=== PATIENT | female | born 1990 | race Caucasian/White ===

== ENCOUNTER 2020-10-06 15:05 | Emergency (ER) | payer OTHER, SELFPAY ==
--- NOTE | ~2020-10-06 | XR_ITS ---
EXAMINATION: XR CHEST CLINICAL INFORMATION: Cough COMPARISON: None TECHNIQUE: Frontal view of the chest was obtained. FINDINGS: The lungs are clear. There is no airspace consolidation or groundglass opacity. No hyperinflation. The costophrenic sulci are well-defined. The heart is normal in size. The hilar and mediastinal contours and visualized bony structures are unremarkable. XR/XR chest 1V IMPRESSION: Unremarkable examination.
[2020-10-06 15:12] VITALS: BP 141/85; PULSE 97; RESP 16; TEMP 36.1; O2SAT 98; BMI 39.6
[2020-10-06 15:49] LABS: COVID-19 Test Negative (Negative); IDNOW Serial# 9DD0AD1C
--- NOTE | 2020-10-06 16:13 | ED.URI ---
HPI - URI/Sore Throat General Chief Complaint: Upper Respiratory Symptoms Stated Complaint: flu like Time Seen by Provider: 10/06/20 16:04 History of Present Illness HPI Narrative: Patient complains of runny nose and worsening cough over past 3 days, no fever no chills no difficulty breathing Related Data Allergies Allergy/AdvReac Type Severity Reaction Status Date / Time No Known Allergies Allergy Unverified 10/23/19 16:21 Review of Systems Review of Systems: Positive for runny nose and cough Negatives no fever no chills no dizziness no weakness no headache no vision changes no sore throat no chest pain no shortness of breath no abdominal pain no nausea or vomiting no leg swelling no calf pain no rashes Yes all other systems are reviewed and are negative [facility] Past Medical History Source: nursing notes reviewed Social History Social History Advance Directives: No Advance Directives Information Provided: Yes Physical Exam Vital Signs: Vital Signs: Last Vital Signs Temp 97 F 10/06/20 15:12 Pulse 97 10/06/20 15:12 Resp 16 10/06/20 15:12 BP 141/85 H 10/06/20 15:12 Pulse Ox 98 10/06/20 15:12 Body Mass Index 39.6 General appearance no acute distress comfortable The ears are clear with normal tympanic membranes The sinuses are nontender The pharynx is clear, well hydrated, no redness swelling or exudate, voice is normal The neck is supple Chest is clear to auscultation bilateral Heart no murmur Abdomen soft nontender Extremities full range of motion x4 Skin no rash Course Course Course Narrative: COVID test was negative, chest x-ray was negative Comfortable patient with no sign of any dangerous illness, breathing easily is discharged home with diagnosis viral illness MDM - URI/Sore Throat Lab Data Labs: Lab Results 10/06/20 Range/Units 15:17 COVID-19 (JEFFERY) Negative (Negative) COVID-19 Clin Com See Note Discharge Plan Discharge Clinical Impression: Upper respiratory infection Patient Disposition: Home, Self-Care Additional Instructions: COVID testing was negative and chest x-ray was normal This is most likely a viral illness or cold Return any time any worse condition or any concerns Follow with primary doctor if needed You can use [id number] decongestants if needed as well as [id number] Tylenol or Motrin for any body aches Stand Alone Forms: Work/School Release Interventions: ED Discharge Assessment Last Done: 10/06/20 16:51 Discharge Date/Time: 10/06/20 16:53
== END 2020-10-06 16:53 | disposition home or self-care (01) ==
PROVIDERS: Emergency Provider Internal Medicine; PCP Internal Medicine
DX: J06.9 Acute upper respiratory infection, unspecified (principal); Z20.822 Contact with and (suspected) exposure to COVID-19
CPT/HCPCS: 36415; 71045; 87635; 99283

== ENCOUNTER 2021-02-16 12:43 | Emergency (ER) | payer OTHER, SELFPAY ==
[2021-02-16 13:11] VITALS: BP 128/95; PULSE 117; RESP 19; TEMP 37.1; O2SAT 99; BMI 37.2
[2021-02-16 14:17] LABS: COVID-19 Test Negative (Negative)
== END 2021-02-16 17:13 | disposition left against medical advice (07) ==
PROVIDERS: Emergency Provider Emergency Medicine; PCP Internal Medicine
DX: R51.9 Headache, unspecified (principal); Z20.822 Contact with and (suspected) exposure to COVID-19
CPT/HCPCS: 87635; 99282; 99283

== ENCOUNTER 2021-03-22 09:33 | Emergency (ER) | payer OTHER, SELFPAY ==
--- NOTE | ~2021-03-22 | CT_ITS ---
EXAMINATION: CT ABDOMEN AND PELVIS WITH CONTRAST CLINICAL INFORMATION: Lower abdominal pain. Diarrhea. COMPARISON: None TECHNIQUE: Multidetector volumetric images were obtained from the superior aspect of the liver through the pubic symphysis following administration 85 mL of Omnipaque 350 intravenous contrast. Sagittal and coronal reformatted images were obtained on the technologist's workstation. Oral contrast: Yes This CT examination was performed using dose optimization techniques as appropriate, variously including the following: *Automated exposure control *Adjustment of mA and/or kV according to patient size (this includes techniques or standardized protocols for targeted exams where dose is matched to indication/reason for exam; i.e. extremities or head) *Use of iterative reconstruction technique DLP: 646 mGy-cm FINDINGS: LUNG BASES: The visualized lung bases are unremarkable. LIVER, GALLBLADDER, AND BILIARY TREE: The liver is normal in size, shape, and attenuation. There is a small 4 mm low-attenuation lesion in the left lobe of the liver axial image 17 series 3. This is difficult to characterize due to small size but may represent a cyst. No other focal hepatic lesion or biliary ductal dilatation is present. The gallbladder is unremarkable with no evidence of radiopaque gallstones, gallbladder wall thickening, or obvious pericholecystic inflammatory changes. PANCREAS: Unremarkable. SPLEEN: Unremarkable. ADRENAL GLANDS: Unremarkable. KIDNEYS AND URETERS: The kidneys are normal in size, shape, and attenuation. No hydronephrosis, hydroureter, or calculi seen. No perinephric stranding. BLADDER: Unremarkable. GASTROINTESTINAL TRACT: The small and large bowel are unremarkable. The appendix is unremarkable. ABDOMINAL WALL: No significant hernia is appreciated. LYMPH NODES: Normal. VASCULAR: Unremarkable. PELVIC VISCERA: Unremarkable. OSSEOUS STRUCTURES: Unremarkable. CT/CT abdomen pelvis w con IMPRESSION: Probable small liver cyst. Otherwise unremarkable exam. Fleischner guidelines were followed.
[2021-03-22 09:51] VITALS: BP 123/83; PULSE 98; RESP 18; TEMP 37.3; O2SAT 100; BMI 35.9
--- NOTE | 2021-03-22 11:29 | ED.ABDPAIN ---
HPI - Abdominal Pain General Chief Complaint: Abdominal Pain Stated Complaint: Abd pain Time Seen by Provider: 03/22/21 11:17 Source: patient Mode of arrival: ambulatory Limitations: no limitations History of Present Illness HPI narrative: describes bubbling in stomach and terrible tasting burps elicited complaint: abdominal pain Onset (ago): day(s) (since Sunday) Location: diffuse Severity: moderate Quality: cramping Radiation: none Migration to: no migration Exacerbating factors: other (unsure) Relieving factors: nothing Context: other (cannot think of event - not triggered by anything, no sick contacts, no antibiotic use, no fam hx of IBD, no diet changes) Associated symptoms: nausea and diarrhea (5 loose stools today) Treatments prior to arrival: other (mylanta, prilosec sent by urgent care center) Related Data Previous Rx's Medication Instructions Recorded dicyclomine 20 mg tablet 20 mg PO BID PRN #30 tab 03/22/21 ondansetron 4 mg disintegrating 4 mg PO Q8H PRN #20 tab 03/22/21 tablet Allergies Allergy/AdvReac Type Severity Reaction Status Date / Time No Known Allergies Allergy Verified 03/22/21 09:51 Review of Systems Review of Systems Constitutional : No Weight loss, No Fever, No Chills ENT/Mouth : No sore throat, No Rhinorrhea Eyes: No Swelling, No Redness Cardiovascular : No Chest Pain, No SOB, NoEdema Respiratory : No Cough, No Sputum, No Wheezing Gastrointestinal : Positive Nausea, no Vomiting, positive Diarrhea, positive abdominal Pain, No Hematochezia, No Melena Genitourinary : No Dysuria, No Urinary Frequency, No Hematuria, No Urgency Musculoskeletal : No joint pain, No Myalgias, No Joint Swelling Skin : No Skin Lesions, No rash Neuro : No Weakness, No Numbness, No Dizziness, No Headache Psych : No Anxiety/Panic, No Depression Heme/Lymph: No Bruising, No Lymphadenopathy Endocrine : No Polyuria, No Polydipsia All other systems reviewed and are negative. [facility] Past Medical History Attestation statement: The following information was validated with the patient. Medical History No known health problems Social History Social History (Updated 03/22/21 @ 11:42 by Estrella Rougemont, DO) Alcohol intake: never Patient Tobacco Use Status: Never used Tobacco Use of substances other than those prescribed or required for medical reasons: No Advance Directives: No Advance Directives Information Provided: No Physical Exam ED Vital Signs: Vital Signs - 24 hr 03/22/21 09:51 03/22/21 12:15 03/22/21 14:07 Temperature 99.2 F 98.5 F Pulse Rate 98 97 88 Respiratory Rate 18 14 14 Blood Pressure 123/83 120/86 115/86 Pulse Oximetry 100 100 100 BMI result Body Mass Index 35.9 Appearance: Alert. Oriented X3. No acute distress. Eyes: Pupils equal, round and reactive to light. ENT: Pharynx normal. Neck: Normal inspection. Neck supple. CVS: Normal heart rate and rhythm. Pulses normal. Respiratory: No respiratory distress. Breath sounds normal. Abdomen: Soft and very mild ttp in lower and upper abdomen no rebound or guarding neg floyd's sign Skin: Skin warm and dry. Normal skin color. Normal skin turgor. Extremities: No lower extremity edema. No calf ttp Neuro: Oriented X 3. No motor deficit. No sensory deficit. Course Course Course Narrative: no acute findings stable for DC crp negative MDM - Abdominal Pain MDM Narrative Medical decision making narrative: 31 yo female no sig PMH no hx of surgeries at this time c/o stomach bubbling, cramping, terrible tasting belching - she notes no changes diet, no food exposures, sick contacts, abx use - at this time no known fam hx of IBD. Will obtain basic labs, CT scan for colitis. IVF. Dispo per results and findings. Lab Data Result diagrams: 03/22/21 12:11 03/22/21 12:10 Labs: Lab Results 03/22/21 03/22/21 03/22/21 Range/Units 11:42 11:42 12:10 WBC (4.8-10.8) X10*3/uL RBC (4.20-5.50) X10*6/uL Hgb (12.0-16.0) g/dl Hct (37.0-47.0) % MCV (80.0-98.0) fL MCH (27.0-33.0) pg MCHC (31.0-35.0) g/dl RDW (11.0-16.0) % Plt Count (160-400) X10*3/uL MPV (9.4-12.3) fL Immature Gran % (Auto) (0.0-0.4) % Neut % (Auto) (45-73) % Lymph % (Auto) (20-40) % Mcculloch % (Auto) (2-11) % Eos % (Auto) (0-4) % Baso % (Auto) (0-2) % Lymph # (Auto) (1.2-4.9) X10*3/uL Mcculloch # (Auto) (0.1-1.2) X10*3/uL Eos # (Auto) (0.0-0.4) X10*3/uL Baso # (Auto) (0.0-0.2) X10*3/uL Abs Immat Gran (auto) (0.00-0.03) X10*3/uL Absolute Neuts (auto) (2.0-8.3) x10*3/uL Absolute Nucleated RBC (0.0-0.012) X10*3/uL Nucleated RBC % (auto) (0.0-0.2) /100WBC Sodium 141 (135-145) mmol/L Potassium 4.2 (3.3-5.1) mmol/L Chloride 111 H (96-108) mmol/L Carbon Dioxide 26 (22-29) mmol/L Anion Gap 8 L (12-20) BUN 6 L (9-16) mg/dL Creatinine 0.72 (0.5-1.4) mg/dL Estim Creat Clear Calc 111.8 Estimated GFR > 60 Random Glucose 108 (60-115) mg/dL Calcium 9.2 (8.4-10.2) mg/dL Magnesium 2.1 (1.6-2.6) mg/dL Total Bilirubin 0.4 (0.0-1.0) mg/dL Direct Bilirubin 0.2 (0.0-0.5) mg/dL AST 13 (5-31) U/L ALT 16 (0-31) U/L Alkaline Phosphatase 57 (39-117) U/L C-Reactive Protein 0.21 (< or = 0.50) mg/dL Total Protein 7.0 (6.5-8.0) g/dL Albumin 3.9 (3.5-5.0) g/dL Lipase 50 (8-78) U/L Urine Color YELLOW Urine Appearance CLEAR Urine pH 5.5 (5.0-8.0) Ur Specific Leivasy >= 1.030 H (1.005-1.025) Urine Protein NEG (NEG-TRACE) MG/DL Urine Glucose (UA) NEG (NEG) MG/DL Urine Ketones NEG (NEG) MG/DL Urine Blood NEG (NEG) Urine Nitrite NEG (NEG) Ur Leukocyte Esterase NEG (NEG) Urine Test NEGATIVE (NEGATIVE) COVID-19 (JEFFERY) (Negative) COVID-19 Clin Com 03/22/21 03/22/21 Range/Units 12:11 12:11 WBC 8.2 (4.8-10.8) X10*3/uL RBC 4.17 L (4.20-5.50) X10*6/uL Hgb 12.4 (12.0-16.0) g/dl Hct 37.6 (37.0-47.0) % MCV 90.2 (80.0-98.0) fL MCH 29.7 (27.0-33.0) pg MCHC 33.0 (31.0-35.0) g/dl RDW 12.9 (11.0-16.0) % Plt Count 288 (160-400) X10*3/uL MPV 10.1 (9.4-12.3) fL Immature Gran % (Auto) 0.1 (0.0-0.4) % Neut % (Auto) 51.6 (45-73) % Lymph % (Auto) 37.1 (20-40) % Mcculloch % (Auto) 5.6 (2-11) % Eos % (Auto) 5.5 H (0-4) % Baso % (Auto) 0.1 (0-2) % Lymph # (Auto) 3.0 (1.2-4.9) X10*3/uL Mcculloch # (Auto) 0.5 (0.1-1.2) X10*3/uL Eos # (Auto) 0.5 H (0.0-0.4) X10*3/uL Baso # (Auto) 0.0 (0.0-0.2) X10*3/uL Abs Immat Gran (auto) 0.01 (0.00-0.03) X10*3/uL Absolute Neuts (auto) 4.2 (2.0-8.3) x10*3/uL Absolute Nucleated RBC 0.000 (0.0-0.012) X10*3/uL Nucleated RBC % (auto) 0.0 (0.0-0.2) /100WBC Sodium (135-145) mmol/L Potassium (3.3-5.1) mmol/L Chloride (96-108) mmol/L Carbon Dioxide (22-29) mmol/L Anion Gap (12-20) BUN (9-16) mg/dL Creatinine (0.5-1.4) mg/dL Estim Creat Clear Calc Estimated GFR Random Glucose (60-115) mg/dL Calcium (8.4-10.2) mg/dL Magnesium (1.6-2.6) mg/dL Total Bilirubin (0.0-1.0) mg/dL Direct Bilirubin (0.0-0.5) mg/dL AST (5-31) U/L ALT (0-31) U/L Alkaline Phosphatase (39-117) U/L C-Reactive Protein (< or = 0.50) mg/dL Total Protein (6.5-8.0) g/dL Albumin (3.5-5.0) g/dL Lipase (8-78) U/L Urine Color Urine Appearance Urine pH (5.0-8.0) Ur Specific Leivasy (1.005-1.025) Urine Protein (NEG-TRACE) MG/DL Urine Glucose (UA) (NEG) MG/DL Urine Ketones (NEG) MG/DL Urine Blood (NEG) Urine Nitrite (NEG) Ur Leukocyte Esterase (NEG) Urine Test (NEGATIVE) COVID-19 (JEFFERY) Negative (Negative) COVID-19 Clin Com See Note Discharge Plan Discharge Clinical Impression: Abdominal pain Qualifiers: Abdominal location: unspecified location Qualified Code(s): R10.9 - Unspecified abdominal pain Diarrhea Qualifiers: Diarrhea type: unspecified type Qualified Code(s): R19.7 - Diarrhea, unspecified Patient Disposition: Home, Self-Care Instructions: Acute Diarrhea (ED), Abdominal Pain (ED) Additional Instructions: return to ED for any worsening symptoms or concerns CT scan of simple liver cyst can just follow with PCP not the cause of your symptoms today LUNG BASES: The visualized lung bases are unremarkable.? LIVER, GALLBLADDER, AND BILIARY TREE: The liver is normal in size, shape, and attenuation. There is a small 4 mm low-attenuation lesion in the left lobe of the liver axial image 17 series 3. This is difficult to characterize due to small size but may represent a cyst. No other focal hepatic lesion or biliary ductal dilatation is present. The gallbladder is unremarkable with no evidence of radiopaque gallstones, gallbladder wall thickening, or obvious pericholecystic inflammatory changes.? PANCREAS: Unremarkable.? SPLEEN: Unremarkable.? ADRENAL GLANDS: Unremarkable.? KIDNEYS AND URETERS: The kidneys are normal in size, shape, and attenuation. No hydronephrosis, hydroureter, or calculi seen. No perinephric stranding. ? BLADDER: Unremarkable.? GASTROINTESTINAL TRACT: The small and large bowel are unremarkable. The appendix is unremarkable.? ABDOMINAL WALL: No significant hernia is appreciated.? LYMPH NODES: Normal. VASCULAR: Unremarkable. PELVIC VISCERA: Unremarkable.? OSSEOUS STRUCTURES: Unremarkable.? CT/CT abdomen pelvis w con IMPRESSION: Probable small liver cyst. Otherwise unremarkable exam. ? Fleischner guidelines were followed. Prescriptions: New ondansetron 4 mg tablet,disintegrating 4 mg PO Q8H PRN (Reason: nausea and vomiting) Qty: 20 0RF dicyclomine 20 mg tablet 20 mg PO BID PRN (Reason: abdominal discomfort) Qty: 30 0RF Referrals: Latrice Cuevas MD [Physician] - 1 week (if this persists)
[2021-03-22 11:50] LABS: Appearance Urine CLEAR; Color Urine YELLOW; Glucose Urine UA NEG (NEG); Leukocyte Esterase Urine NEG (NEG); Nitrite Urine NEG (NEG); PH 5.5 (5.0-8.0); Specific Gravity - Urine >= 1.030 (1.005-1.025); Urine Blood NEG (NEG); Urine Ketones NEG (NEG); Urine Protein NEG (NEG-TRACE)
[2021-03-22 11:52] LABS: UPreg QC Valid YES; Urine Pregnancy NEGATIVE (NEGATIVE)
[2021-03-22 12:15] VITALS: BP 120/86; PULSE 97; RESP 14; TEMP 36.9; O2SAT 100
[2021-03-22 12:17] LABS: MANUAL DIFF FLAG NO
[2021-03-22 12:31] LABS: Basophils Percent Auto 0.1 % (0-2); Eosinophils Absolute Auto 0.5 X10*3/uL (0.0-0.4); Eosinophils Percent Auto 5.5 % (0-4); Hematocrit 37.6 % (37.0-47.0); Hemoglobin 12.4 g/dl (12.0-16.0); Imm Gran Abs Auto 0.01 X10*3/uL (0.00-0.03); Imm Gran Pct Auto 0.1 % (0.0-0.4); Lymphocytes Percent Auto 37.1 % (20-40); Mean Corpuscular Hemoglobin 29.7 pg (27.0-33.0); Mean Corpuscular Volume 90.2 fL (80.0-98.0); Mean Platelet Volume 10.1 fL (9.4-12.3); Monocytes Absolute Auto 0.5 X10*3/uL (0.1-1.2); Monocytes Percent Auto 5.6 % (2-11); Neutrophils Absolute Auto 4.2 x10*3/uL (2.0-8.3); Neutrophils Percent Auto 51.6 % (45-73); Platelet Count 288 X10*3/uL (160-400); Red Blood Count 4.17 X10*6/uL (4.20-5.50); Red Cell Distribution Width 12.9 % (11.0-16.0); White Blood Count 8.2 X10*3/uL (4.8-10.8)
[2021-03-22] MEDS: 0.9 % Sodium Chloride 1,000 ML 999 ML IVCONT (12:33)
[2021-03-22 12:39] LABS: COVID-19 Test Negative (Negative)
[2021-03-22 12:46] LABS: Alanine Aminotransferase 16 U/L (0-31); Albumin Level 3.9 g/dL (3.5-5.0); Alkaline Phosphatase 57 U/L (39-117); Anion Gap 8 (12-20); Aspartate Amino Transferase 13 U/L (5-31); Bilirubin Direct 0.2 mg/dL (0.0-0.5); Bilirubin Total 0.4 mg/dL (0.0-1.0); Blood Urea Nitrogen 6 mg/dL (9-16); C Reactive Protein 0.21 mg/dL (< or = 0.50); Calcium 9.2 mg/dL (8.4-10.2); Carbon Dioxide 26 mmol/L (22-29); Chloride 111 mmol/L (96-108); Creatinine Clr Calc Pharmacy 111.8; Estimated Glomerular Filt Rate > 60; Glucose Random 108 mg/dL (60-115); Lipase 50 U/L (8-78); Magnesium 2.1 mg/dL (1.6-2.6); Potassium 4.2 mmol/L (3.3-5.1); Sodium 141 mmol/L (135-145)
[2021-03-22] MEDS: iohexoL 350 MG/ML 100 ML INFUS..BTL IV ×2 (13:23→13:47)
[2021-03-22 14:07] VITALS: BP 115/86; PULSE 88; RESP 14; O2SAT 100
== END 2021-03-22 15:09 | disposition home or self-care (01) ==
PROVIDERS: Emergency Provider Emergency Medicine; PCP Internal Medicine
DX: R10.9 Unspecified abdominal pain (principal); R19.7 Diarrhea, unspecified; R11.0 Nausea; Z79.899 Other long term (current) drug therapy; Z20.822 Contact with and (suspected) exposure to COVID-19
CPT/HCPCS: 74177; 80048; 80076; 81003; 81025; 83690; 83735; 85025; 86140; 87635; 96361; 96374; 99284; Q9967

== ENCOUNTER 2022-12-21 02:00 | Emergency (ER) | payer OTHER, SELFPAY ==
[2022-12-21 02:04] VITALS: BP 119/79; BP 152/90; PULSE 105; PULSE 112; RESP 19; TEMP 37.1; O2SAT 100; O2SAT 96; BMI 39.5
--- NOTE | 2022-12-21 02:52 | ED_ITS ---
HPI - Overdose General Chief Complaint: Nausea/Vomiting/Diarrhea Stated Complaint: drug use Time Seen by Provider: 12/21/22 02:19 Source: patient Mode of arrival: EMS History of Present Illness HPI Narrative: 32-year-old female without significant past medical history is brought in by EMS from home where she reports that she ate cannabis brownies last night approximately 1900 and now is experiencing significant nausea, vomiting, dizzin ess, mild confusion. Related Data Previous Rx's Medication Instructions Recorded dicyclomine 20 mg tablet 20 mg PO BID PRN abdominal 03/22/21 discomfort #30 tabs ondansetron 4 mg disintegrating 4 mg PO Q8H PRN nausea and 03/22/21 tablet vomiting #20 tabs Allergies Allergy/AdvReac Type Severity Reaction Status Date / Time No Known Allergies Allergy Verified 12/21/22 02:18 Review of Systems Review of Systems: Pertinent positives and negatives as stated in HPI [facility] Past Medical History Source: nursing notes reviewed Medical History No known health problems Social History Social History Alcohol intake: never Patient Tobacco Use Status: Never used Tobacco Smoked in Last 30 Days: No Use of substances other than those prescribed or required for medical reasons: No Advance Directives: No Advance Directives Information Provided: Yes Patient : No Physical Exam Vital Signs: Vital Signs: Last Vital Signs Temp 98.8 F 12/21/22 02:04 Pulse 118 H 12/21/22 05:43 Resp 16 12/21/22 05:43 BP 106/67 12/21/22 05:43 Pulse Ox 98 12/21/22 05:43 O2 Del Method Room Air 12/21/22 05:43 BMI result Body Mass Index 39.5 VITAL SIGNS: Reviewed. GENERAL: Well developed, well nourished, in no acute distress. HEAD: Normocephalic/atraumatic EYES: PERRLA, EOMI EARS: Ext canals without abnormality NOSE: Nares patent bilateral OROPHARYNX: no oral lesions noted, posterior pharynx clear NECK: Supple, no adenopathy LUNGS: Normal breath sounds. No adventitious sounds or accessory muscle use. SpO2<100> CARDIOVASCULAR: Regular rate and rhythm without noted murmurs ABDOMEN: Soft, non-tender, non-distended with bowel sounds. MUSCULOSKELETAL: No tenderness, deformities, or effusions noted on gross inspection. EXTREMITIES: No cyanosis, clubbing or edema. SKIN: Inspection of the skin reveals no rashes NEUROLOGIC: drowsy and oriented x 4. Strength and sensation to light touch were grossly intact x 4. Medical Decision Making Medical Decision Making [facility] Narrative: 32-year-old female with history and clinical presentation consistent with cannabis overdose. Will observe until patient is clinically sober. Urinalysis is a dirty sample and no evidence to suggest urinary tract infection or hematuria. UDS is positive for cannabis which was endorsed by the patient. 0546: Patient is awake, she states she is feeling much better, she ambulates with a steady gait and has a safe ride home, her mother is at bedside. Differential Diagnosis Differential Diagnoses: The differential diagnosis associated with the presentation includes Please see the discussion above Admission/Observation Consideration of admission/observation: Escalation of care including admission/observation considered please see the discussion above Lab Data [facility] Lab Attestation statement: I reviewed the patient's lab results. Please see the discussion above Labs: Lab Results 12/21/22 Range/Units 05:01 Urine Color Yellow Urine Appearance Clear Urine pH 6.0 (5.0-9.0) Ur Specific Jackson >= 1.030 H (1.005-1.025) Urine Protein Trace (Neg-Trace) mg/dL Urine Glucose (UA) Negative (Negative) mg/dL Urine Ketones Trace (Negative) mg/dL Urine Blood Negative (Negative) Urine Nitrite Negative (Negative) Ur Leukocyte Esterase Small (1+) H (Negative) Urine RBC 6-10 H (0-2) /HPF Urine WBC 11-20 H (0-5) /HPF Ur Squamous Epith Cells 11-20 (0-2) /HPF Urine Bacteria 2+ (None Seen) Hyaline Casts 0-2 (0-2) /LPF Urine Opiates Screen Not Detected (Not Detect) Urine Fentanyl Screen Not Detected (Not Detect) Ur Barbiturates Screen Not Detected (Not Detect) Ur Phencyclidine Scrn Not Detected (Not Detect) Ur Amphetamines Screen Not Detected (Not Detect) U Benzodiazepines Scrn Not Detected (Not Detect) Urine Cocaine Screen Not Detected (Not Detect) U Marijuana (THC) Screen POSITIVE H (Not Detect) Discharge Plan Discharge Clinical Impression: Cannabis overdose Patient Disposition: Home, Self-Care Instructions: Adult Overdose (ED) Additional Instructions: please exercise caution when unsure about drug content. Return to the ER for any worsening symptoms. Prescriptions: No Action ondansetron 4 mg tablet,disintegrating 4 mg PO Q8H PRN (Reason: nausea and vomiting) Qty: 20 0RF dicyclomine 20 mg tablet 20 mg PO BID PRN (Reason: abdominal discomfort) Qty: 30 0RF Referrals: Sukhdev Pitts MD [Primary Care Provider] -
[2022-12-21 05:07] LABS: Appearance Urine Clear; Color Urine Yellow; Glucose Urine UA Negative (Negative); Leukocyte Esterase Urine Small (1+) (Negative); Nitrite Urine Negative (Negative); Specific Gravity - Urine >= 1.030 (1.005-1.025); UMIC TRIGGER UACC YES; Urine Blood Negative (Negative); Urine Ketones Trace mg/dL (Negative); Urine Protein Trace mg/dL (Neg-Trace)
[2022-12-21 05:18] LABS: Bacteria Urine 2+ (None Seen); Hyaline Casts Urine 0-2 /LPF (0-2); UACC Culture Trigger YES
[2022-12-21 05:24] LABS: Amphetamine Screen Urine Not Detected (Not Detect); Barbiturates, Urine Not Detected (Not Detect); Benzodiazepines Screen Urine Not Detected (Not Detect); Cannabinoid Screen Urine POSITIVE (Not Detect); Cocaine Screen Urine Not Detected (Not Detect); Fentanyl, urine Not Detected (Not Detect); Opiate Screen Urine Not Detected (Not Detect); Phencyclidine Screen Urine Not Detected (Not Detect)
[2022-12-21 05:43] VITALS: BP 106/67; PULSE 118; RESP 16; O2SAT 98
== END 2022-12-21 05:57 | disposition home or self-care (01) ==
PROVIDERS: Emergency Provider Student in an Organized Health Care Education/Training Program; PCP Internal Medicine
DX: R11.2 Nausea with vomiting, unspecified (principal); R42 Dizziness and giddiness; T40.711A Poisoning by cannabis, accidental (unintentional), initial encounter; Y92.9 Unspecified place or not applicable
CPT/HCPCS: 80307; 81001; 87086; 99284

== ENCOUNTER → 2023-01-12 14:32 | Outpatient (BNVA) | payer OTHER, SELFPAY | PROVIDERS: PCP Internal Medicine; Visit Provider Physician Assistant ==

== ENCOUNTER 2023-01-16 10:06 | Outpatient (AMB) | payer OTHER, SELFPAY ==
--- NOTE | 2023-01-16 12:09 | A.OFFVIS_ITS ---
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 Allergies No Known Allergies Allergy (Verified 01/16/23 12:09) Medication List - Last Reconciled 01/16/23 by Raheel Gee MD esomeprazole magnesium 40 mg PO DAILY fluticasone propionate 110 mcg/actuation (Flovent HFA) 1 puff inhalation Q12H lactulose mL PO lorazepam 0.5 mg PO BID PRN medroxyprogesterone (Depo-SubQ provera 104) mg subcut omega 0-gtg-vep-fish oil 1,000 mg (120 mg-180 mg) (Fish Oil) 1 cap PO DAILY polyethylene glycol 3350 (Miralax) 17 grams PO DAILY semaglutide (Ozempic) mg subcut HPI 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 Reyes. Used Phentermine and lost 40 lbs. Now on Ozempic through her PCP Wakes up: 6.30am, Sleeps: 10.30pm Breakfast: skips Lunch: 12pm ([employer] bread: soups) Dinner: 6pm (rice,beans, chicken) Snacks: 10am (dessert), 4pm (chips, crackers, cheese), 8pm (crackers, yogurt) Exercise: has home Stepper and treadmill Fluids: Coffee 12oz (milk and sugar), Tea: rarely, soda (none), juice: (none), ETOH: (none) PFSH Medical History (Updated 01/16/23 @ 12:18 by Raheel Gee MD) Hyperlipidemia Constipation Asthma Anxiety DJD (degenerative joint disease) GERD (gastroesophageal reflux disease) Non-insulin dependent type 2 diabetes mellitus Morbid obesity No known health problems Surgical History (Updated 12/08/23 @ 15:23 by Paulo Brandon, YASHIRA) History of removal of skin mole (~06/2007) Hx of LASIK (~12/2022) Family History (Updated 01/12/23 @ 15:26 by Paulo Brandon, YASHIRA) Mother Ovarian cancer Breast cancer Social History (Updated 01/12/23 @ 15:24 by Paulo Brandon, RN) Alcohol intake: never Patient Tobacco Use Status: Never used Tobacco Assessment & Plan Assessment & Plan (1) Morbid obesity: Code(s): E66.01 - Morbid (severe) obesity due to excess calories Plan: 1.? Plan for lap sleeve gastrectomy. If diaphragmatic or ventral hernias are present at time of surgery, these will be repaired laparoscopically as well. Risks and complications were discussed in detail including possible conversion to an open procedure, anastomotic leak, bleeding requiring transfusion, small bowel obstruction, , DVT and pulmonary embolism, cardiac, or pulmonary complications, as termite helper complications such as anastomotic ulcer, insufficient weight loss and vitamin deficiencies. I emphasized the importance of close follow-up, adherence to instructions and good communication. 2. Nutritional counseling. Start with one CELEBRATE REBUILD protein (buy at [facility]) shake (HALF scoop in 8oz low fat unsweetened almond milk) at 7am-9am and one more Celebrate Rebuild protein shake (ONE scoop in 8oz almond milk) at 10am-12pm, 2 protein bars (CELEBRATE protein bars, buy at [facility] [place] [facility]) at 1pm-3pm and 4pm-6pm and dinner at 7pm (8 forks of protein and 8 forks of salad/vegetables). So you do 2 protein shakes, 2 protein bars and one meal per day. Meal to include lean meat (beef, fish, pork, turkey, chicken), or ghanaian yogurt, or egg whites, or beans with a salad with olive oil and fruits (berries, pears, apples, kiwi). Avoid salt, breads, potatoes, rice, pasta, desserts. 3. Each shake would be drunk slowly, like coffee in a period of 2 hours. 4. Cut each bar in 4 pieces and eat each piece in 30min ?to make each bar last 2 hours. 5. I emphasized the importance of measuring accurately the food portion and measure it when serving the food in plate 6. The meal portions include 8 full-size forks of meat and 8 full-size forks of salad. You always eat the meat portion but you can replace up to 4 forks for salad/vegetables with rice, potatoes or pasta, or a fruit ?if you like. The less you do it the better weight loss will be. 7. One full-size fork is what it can be scooped on the fork without falling aside and not what can be bit with the fork. Use regular forks like those you find in a typical restaurant. 8.? Please send me weight measurements as soon as possible and then once a week. Always include your diet and exercise plan. 9. Start treadmill with an incline of 2.0 and speed of 3.0. Increase incline by 1 every 3 min to a max incline of 8.0, stay 3min at 8.0 and then return to 2.0 and repeat same steps until calorie goal is met. Goal is to burn 2000 calories per week on exercise, which means either 300 calories daily, or 400 calories 5 days per week, or 500 calories 4 days per week, or 650 calories 3 days per week. 10.?It is important of avoiding and for at least 18 months postoperatively and has been discussed at the infosession. 11. Goal is to lose at least 1.5-2lbs per week 12. Goal to lose 10% of your weight before surgery, which is about 20lbs. Ultimate weight goal: 186lbs before surgery 13. Please follow the diet plan exactly without any change. If you don't like something about the plan or you feel hungry you need to communicate with me so I can help you revise the plan. You should not change the plan yourself. Orders: Orders Zinc Today E11.9 - Type 2 diabetes mellitus without complications, E66.01 - Morbid (severe) obesity due to excess calories, E78.5 - Hyperlipidemia, unspecified, J45.909 - Unspecified asthma, uncomplicated, K21.9 - Gastro- esophageal reflux disease without esophagitis Vitamin B1 Today E11.9 - Type 2 diabetes mellitus without complications, E66.01 - Morbid (severe) obesity due to excess calories, E78.5 - Hyperlipidemia, unspecified, J45.909 - Unspecified asthma, uncomplicated, K21.9 - Gastro- esophageal reflux disease without esophagitis Vitamin A Today E11.9 - Type 2 diabetes mellitus without complications, E66.01 - Morbid (severe) obesity due to excess calories, E78.5 - Hyperlipidemia, unspecified, J45.909 - Unspecified asthma, uncomplicated, K21.9 - Gastro- esophageal reflux disease without esophagitis TSH reflex Free T4 Today E11.9 - Type 2 diabetes mellitus without complications, E66.01 - Morbid (severe) obesity due to excess calories, E78.5 - Hyperlipidemia, unspecified, J45.909 - Unspecified asthma, uncomplicated, K21.9 - Gastro- esophageal reflux disease without esophagitis US abdomen comp w elastography Today E11.9 - Type 2 diabetes mellitus without complications, E66.01 - Morbid (severe) obesity due to excess calories, E78.5 - Hyperlipidemia, unspecified, J45.909 - Unspecified asthma, uncomplicated, K21.9 - Gastro-esophageal reflux disease without esophagitis XR chest 2V Today E11.9 - Type 2 diabetes mellitus without complications, E66.01 - Morbid (severe) obesity due to excess calories, E78.5 - Hyperlipidemia, unspecified, J45.909 - Unspecified asthma, uncomplicated, K21.9 - Gastro- esophageal reflux disease without esophagitis ECG 12 lead EKG Today E11.9 - Type 2 diabetes mellitus without complications, E66.01 - Morbid (severe) obesity due to excess calories, E78.5 - Hyperlipidemia, unspecified, J45.909 - Unspecified asthma, uncomplicated, K21.9 - Gastro- esophageal reflux disease without esophagitis Insulin Today E11.9 - Type 2 diabetes mellitus without complications, E66.01 - Morbid (severe) obesity due to excess calories, E78.5 - Hyperlipidemia, unspecified, J45.909 - Unspecified asthma, uncomplicated, K21.9 - Gastro- esophageal reflux disease without esophagitis Hemoglobin A1c Today E11.9 - Type 2 diabetes mellitus without complications, E66.01 - Morbid (severe) obesity due to excess calories, E78.5 - Hyperlipidemia, unspecified, J45.909 - Unspecified asthma, uncomplicated, K21.9 - Gastro- esophageal reflux disease without esophagitis H Pylori Breath Test Today E11.9 - Type 2 diabetes mellitus without complications, E66.01 - Morbid (severe) obesity due to excess calories, E78.5 - Hyperlipidemia, unspecified, J45.909 - Unspecified asthma, uncomplicated, K21.9 - Gastro-esophageal reflux disease without esophagitis Complete Blood Count Auto Diff Today E11.9 - Type 2 diabetes mellitus without complications, E66.01 - Morbid (severe) obesity due to excess calories, E78.5 - Hyperlipidemia, unspecified, J45.909 - Unspecified asthma, uncomplicated, K21.9 - Gastro-esophageal reflux disease without esophagitis Lipid Panel Today E11.9 - Type 2 diabetes mellitus without complications, E66.01 - Morbid (severe) obesity due to excess calories, E78.5 - Hyperlipidemia, unspecified, J45.909 - Unspecified asthma, uncomplicated, K21.9 - Gastro- esophageal reflux disease without esophagitis IRON PROFILE Today E11.9 - Type 2 diabetes mellitus without complications, E66.01 - Morbid (severe) obesity due to excess calories, E78.5 - Hyperlipidemia, unspecified, J45.909 - Unspecified asthma, uncomplicated, K21.9 - Gastro- esophageal reflux disease without esophagitis Comprehensive Met. Panel Today E11.9 - Type 2 diabetes mellitus without complications, E66.01 - Morbid (severe) obesity due to excess calories, E78.5 - Hyperlipidemia, unspecified, J45.909 - Unspecified asthma, uncomplicated, K21.9 - Gastro-esophageal reflux disease without esophagitis Vitamin B12 and Folate Today E11.9 - Type 2 diabetes mellitus without complications, E66.01 - Morbid (severe) obesity due to excess calories, E78.5 - Hyperlipidemia, unspecified, J45.909 - Unspecified asthma, uncomplicated, K21.9 - Gastro-esophageal reflux disease without esophagitis C Reactive Protein Today E11.9 - Type 2 diabetes mellitus without complications, E66.01 - Morbid (severe) obesity due to excess calories, E78.5 - Hyperlipidemia, unspecified, J45.909 - Unspecified asthma, uncomplicated, K21.9 - Gastro- esophageal reflux disease without esophagitis Ferritin Today E11.9 - Type 2 diabetes mellitus without complications, E66.01 - Morbid (severe) obesity due to excess calories, E78.5 - Hyperlipidemia, unspecified, J45.909 - Unspecified asthma, uncomplicated, K21.9 - Gastro- esophageal reflux disease without esophagitis Vitamin D 25-OH Total Today E11.9 - Type 2 diabetes mellitus without complications, E66.01 - Morbid (severe) obesity due to excess calories, E78.5 - Hyperlipidemia, unspecified, J45.909 - Unspecified asthma, uncomplicated, K21.9 - Gastro-esophageal reflux disease without esophagitis FL upper GI w air Today E11.9 - Type 2 diabetes mellitus without complications, E66.01 - Morbid (severe) obesity due to excess calories, E78.5 - Hyperlipidemia, unspecified, J45.909 - Unspecified asthma, uncomplicated, K21.9 - Gastro- esophageal reflux disease without esophagitis Referrals Nutrition/Dietitian Referral E11.9 - Type 2 diabetes mellitus without complications, E66.01 - Morbid (severe) obesity due to excess calories, E78.5 - Hyperlipidemia, unspecified, J45.909 - Unspecified asthma, uncomplicated, K21.9 - Gastro-esophageal reflux disease without esophagitis Behavioral Health Referral E11.9 - Type 2 diabetes mellitus without complications, E66.01 - Morbid (severe) obesity due to excess calories, E78.5 - Hyperlipidemia, unspecified, J45.909 - Unspecified asthma, uncomplicated, K21.9 - Gastro-esophageal reflux disease without esophagitis Telehealth Telehealth Location of provider rendering services: practice address Location of patient: address on file Patient Identification confirmed using: Name, : Yes Telehealth method: voice only Patient verbally consented to treatment: Yes Patient verbally consented to billing insurance company: Yes Patient informed of any privacy concerns related to visit: Yes Minutes spent on Phone/Video with Pt.: 57 Coding Level of Care Code Tele [facility] Pt Level 4 (79826) Diagnoses Morbid obesity E66.01 Time Spent (min) 57
[2023-01-16 12:26] VITALS: BMI 40.2
== END 2023-01-16 13:03 | disposition home or self-care (01) ==
PROVIDERS: PCP Internal Medicine; Visit Provider Surgery
DX: E66.01 Morbid (severe) obesity due to excess calories (principal); Z68.41 Body mass index [BMI] 40.0-44.9, adult
CPT/HCPCS: 99204

== ENCOUNTER → 2023-01-16 10:06 | Outpatient (BNVA) | payer OTHER, SELFPAY | PROVIDERS: PCP Internal Medicine; Visit Provider Surgery ==

== ENCOUNTER 2023-01-17 08:02 | Outpatient (REF) | payer OTHER, SELFPAY ==
--- NOTE | ~2023-01-17 | XR_ITS ---
EXAMINATION: XR CHEST CLINICAL INFORMATION: Morbid obesity. COMPARISON: 10/06/2020 TECHNIQUE: 2 views of the chest were obtained. FINDINGS: There is no gross pneumothorax. Heart size is normal. No pleural effusion. No focal consolidation to suggest pneumonia. XR/XR chest 2V IMPRESSION: No evidence of pneumonia.
[2023-01-17 08:25] LABS: MANUAL DIFF FLAG NO
[2023-01-17 09:12] LABS: Basophils Percent Auto 0.1 % (0-2); Eosinophils Percent Auto 8.9 % (0-4); Hematocrit 38.3 % (37.0-47.0); Hemoglobin 12.6 g/dl (12.0-16.0); Imm Gran Abs Auto 0.04 X10*3/uL (0.00-0.03); Imm Gran Pct Auto 0.4 % (0.0-0.4); Lymphocytes Absolute Auto 2.9 X10*3/uL (1.2-4.9); Lymphocytes Percent Auto 26.2 % (20-40); Mean Corpuscular HGB Conc 32.9 g/dl (31.0-35.0); Mean Corpuscular Hemoglobin 28.7 pg (27.0-33.0); Mean Corpuscular Volume 87.2 fL (80.0-98.0); Mean Platelet Volume 10.1 fL (9.4-12.3); Monocytes Absolute Auto 0.5 X10*3/uL (0.1-1.2); Neutrophils Absolute Auto 6.5 x10*3/uL (2.0-8.3); Neutrophils Percent Auto 59.4 % (45-73); Platelet Count 319 X10*3/uL (160-400); Red Blood Count 4.39 X10*6/uL (4.20-5.50); Red Cell Distribution Width 12.7 % (11.0-16.0); White Blood Count 10.9 X10*3/uL (4.8-10.8)
[2023-01-17 09:22] LABS: Estimated Average Glucose 94 mg/dL; Hemoglobin A1c % 4.9 % (<6.0)
[2023-01-17 09:49] LABS: Alanine Aminotransferase 14 U/L (0-31); Alkaline Phosphatase 69 U/L (39-117); Anion Gap 12 (12-20); Aspartate Amino Transferase 12 U/L (5-31); Bilirubin Total 0.5 mg/dL (0.0-1.0); Blood Urea Nitrogen 12 mg/dL (9-16); C Reactive Protein 0.81 mg/dL (< or = 0.50); Calcium 9.5 mg/dL (8.4-10.2); Carbon Dioxide 24 mmol/L (22-29); Chloride 109 mmol/L (96-108); Cholesterol 149 mg/dL (<200); Estimated Glomerular Filt Rate > 60; Glucose Random 95 mg/dL (60-115); HDL Cholesterol 35 mg/dL (>40); Iron 48 mcg/dL (30-160); LDL Cholesterol Calculated 97 mg/dL (<100); Percent Iron Saturation 23 % (15-50); Potassium 4.1 mmol/L (3.3-5.1); Sodium 141 mmol/L (135-145); Total Iron Binding Capacity 211 mcg/dL (228-428); Total Protein 7.6 g/dL (6.5-8.0); Triglycerides 85 mg/dL (<150); Unsaturated Iron Binding 163 ug/dL
[2023-01-17 10:15] LABS: Ferritin 230 ng/mL (10-122); Folate 9.4 ng/mL (> or = 4.0); Insulin 32 uU/mL (2-29); TSH reflex Free T4 0.71 uIU/mL (0.32-4.0); Vitamin B12 521 pg/mL (200-900); Vitamin D 25-OH Total 21.1 ng/mL (>30)
[2023-01-20 13:54] LABS: Zinc 58 mcg/dL (60-130)
[2023-01-21 20:13] LABS: Vitamin A 34 mcg/dL (38-98)
[2023-01-22 13:43] LABS: Vitamin B1 7 nmol/L (8-30)
== END 2023-01-17 08:03 | disposition home or self-care (01) ==
LOC: HO.LAB 08:02
PROVIDERS: PCP Internal Medicine; Visit Provider Surgery
DX: E66.01 Morbid (severe) obesity due to excess calories (principal); E11.9 Type 2 diabetes mellitus without complications; K21.9 Gastro-esophageal reflux disease without esophagitis; E78.5 Hyperlipidemia, unspecified; J45.909 Unspecified asthma, uncomplicated
CPT/HCPCS: 36415; 71046; 80053; 80061; 82306; 82607; 82728; 82746; 83036; 83525; 83540; 84425; 84443; 84590; 84630; 85025; 86140

== ENCOUNTER 2023-02-02 08:13 | Outpatient (AMB) | payer OTHER, SELFPAY ==
--- NOTE | 2023-02-02 12:26 | A.OFFVIS_ITS ---
Intake VS Expanded 02/02/23 12:31 Height 5 ft Weight 204 lb 2 oz BMI 39.9 Body Fat % 51.6 Body Fat Mass 105.3 Fat Free Mass 98.8 Visceral Fat Rating 21 Body Water % 33.2 Body Water Mass 67.7 Basal Metabolic Rate/Score 1,334 Intake Visit Reasons: TV Follow Up SWL - 1ST Allergies No Known Allergies Allergy (Verified 01/16/23 12:09) HPI TV Follow Up SWL - 1ST HPI Details Start time: 12.16pm, End time: 12.36pm ?I spent 15 minutes speaking with the patient on the phone plus an additional 5 minutes reviewing and updating records for a total of 20 minutes HPI Comments History of Present Illness Details Overall weight loss: 1.8lbs, or 0.87% TBWL Is doing one Celebrate Rebuild protein shake (1/2 scoop in 8oz almond milk), one protein shake (1 scoop in almond milk), 2 Celebrate protein bars and one meal (8 forks of protein and 8 forks of salad or vegetables) Exercise: is doing treadmill daily for 300 calories or more (speed 4.0, no incline) PFSH Medical History (Updated 02/02/23 @ 12:35 by Raheel Gee MD) Hyperlipidemia Constipation Asthma Anxiety DJD (degenerative joint disease) GERD (gastroesophageal reflux disease) Non-insulin dependent type 2 diabetes mellitus Morbid obesity No known health problems Surgical History (Updated 01/12/23 @ 15:23 by Paulo Brandon, RN) History of removal of skin mole (~06/2007) Hx of LASIK (~12/2022) Family History (Updated 01/12/23 @ 15:26 by Paulo Brandon, RN) Mother Ovarian cancer Breast cancer Social History (Updated 01/12/23 @ 15:24 by Paulo Brandon, RN) Alcohol intake: never Patient Tobacco Use Status: Never used Tobacco Assessment & Plan Assessment & Plan (1) Obesity: Code(s): E66.9 - Obesity, unspecified Qualifiers: Obesity type: due to excess calories Obesity classification: adult class 2 (BMI 35 - 39.9) Serious obesity comorbidity presence: with serious comorbidity Body mass index: BMI 39.0-39.9 Qualified Code(s): E66.01 - Morbid (severe) obesity due to excess calories; Z68.39 - Body mass index [BMI] 39.0- 39.9, adult Plan: 1. Continue same nutritional plan of Celebrate Rebuild protein shake (1/2 scoop in 8oz almond milk), one protein shake (1 scoop in almond milk), 2 Celebrate protein bars and one meal (8 forks of protein and 8 forks of salad or vegetables) 2. Exercise: continue treadmill daily for 300 calories or more (speed 4.0, no incline). Goal is to burn 2000 calories per week 3. Continue to send me weight measurements weekly on Wednesdays Telehealth Telehealth Location of provider rendering services: practice address Location of patient: address on file Patient Identification confirmed using: Name, : Yes Telehealth method: voice only Patient verbally consented to treatment: Yes Patient verbally consented to billing insurance company: Yes Patient informed of any privacy concerns related to visit: Yes Minutes spent on Phone/Video with Pt.: 20 Coding Level of Care Code Tele Est Pt Level 3 (84647) Diagnoses Class 2 severe obesity due to excess calories with serious comorbidity and body mass index (BMI) of 39.0 to 39.9 in adult E66.01; Z68.39 Obesity type: due to excess calories Obesity classification: adult class 2 (BMI 35 - 39.9) Serious obesity comorbidity presence: with serious comorbidity Body mass index: BMI 39.0-39.9 Time Spent (min) 20
[2023-02-02 12:31] VITALS: BMI 39.9
== END 2023-02-02 12:36 | disposition home or self-care (01) ==
LOC: HO.HBS 08:13
PROVIDERS: PCP Internal Medicine; Visit Provider Surgery
DX: E66.01 Morbid (severe) obesity due to excess calories (principal); Z68.39 Body mass index [BMI] 39.0-39.9, adult
CPT/HCPCS: 99213

== ENCOUNTER → 2023-02-02 08:13 | Outpatient (BNVA) | payer OTHER, SELFPAY | PROVIDERS: PCP Internal Medicine; Visit Provider Surgery ==

== ENCOUNTER 2023-02-06 09:08 | Outpatient (AMB) | payer OTHER, SELFPAY ==
--- NOTE | 2023-02-06 09:03 | A.OFFVIS_ITS ---
Intake Intake Visit Reasons: Tv Initial Nutrition SWL Allergies No Known Allergies Allergy (Verified 01/16/23 12:09) HPI Nutrition Presentation Reason for consult elevated BMI Diet Assmnt Details Pt sates she enjoys plan from surgeon . no complaints Exercise: treadmill at home daily and she really enjoys it SWL online classes: completed, scored well and reviewed. Previous weight loss methods attempted Dr. 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 increased eating at work Dietary counseling reduction Lifestyle Emotional Eating Reports stress Eating out 1-3 times/week Diagnosis Nutrition problem #1 overweight/obesity As related to (etiology) #1 excess energy intake and physical inactivity As evidenced by (sign/symptom) #1 high BMI Monitoring/Goals Nutrition problem monitoring total energy intake, level of knowledge/skill, total PRO intake, total CHO intake and weight Outcome progress progressing Learning/Education Readiness to learn excellent Stages of change action Educational materials provided Yes Most Recent Diabetes Results: Cholesterol 149 mg/dL (<200) 01/17/23 HDL Cholesterol 35 mg/dL (>40) L 01/17/23 Triglycerides 85 mg/dL (<150) 01/17/23 Creatinine 0.85 mg/dL (0.5-1.4) 01/17/23 Blood Urea Nitrogen 12 mg/dL (9-16) 01/17/23 Sodium 141 mmol/L (135-145) 01/17/23 Potassium 4.1 mmol/L (3.3-5.1) 01/17/23 Chloride 109 mmol/L (96-108) H 01/17/23 Carbon Dioxide 24 mmol/L (22-29) 01/17/23 Calcium 9.5 mg/dL (8.4-10.2) 01/17/23 AST 12 U/L (5-31) 01/17/23 ALT 14 U/L (0-31) 01/17/23 Total Protein 7.6 g/dL (6.5-8.0) 01/17/23 Albumin 4.0 g/dL (3.5-5.0) 01/17/23 [facility] Medical History (Updated 02/02/23 @ 12:35 by Raheel Gee MD) Hyperlipidemia Constipation Asthma Anxiety DJD (degenerative joint disease) GERD (gastroesophageal reflux disease) Non-insulin dependent type 2 diabetes mellitus Morbid obesity No known health problems Surgical History (Updated 01/12/23 @ 15:23 by Paulo Brandon, RN) History of removal of skin mole (~06/2007) Hx of LASIK (~12/2022) Family History (Updated 01/12/23 @ 15:26 by Paulo Brandon, RN) Mother Ovarian cancer Breast cancer Social History (Updated 01/12/23 @ 15:24 by Paulo Brandon, RN) Alcohol intake: never Patient Tobacco Use Status: Never used Tobacco Assessment & Plan Assessment & Plan (1) Morbid obesity: Code(s): E66.01 - Morbid (severe) obesity due to excess calories (2) Non-insulin dependent type 2 diabetes mellitus: Code(s): E11.9 - Type 2 diabetes mellitus without complications Plan Patient is cleared from a nutrition standpoint for bariatric surgery. Educational requirements have been completed. Reviewed vitamin supplementation and commitment to protein shake for several months post surgery. Encouraged communication with office as needed Telehealth Telehealth Location of provider rendering services: practice address Location of patient: address on file Patient Identification confirmed using: Name, : Yes Telehealth method: video Patient verbally consented to treatment: Yes Patient verbally consented to billing insurance company: Yes Patient informed of any privacy concerns related to visit: Yes Minutes spent on Phone/Video with Pt.: 25 Coding Level of Care Code Nutr Indiv Intake (88086) Diagnoses Morbid obesity E66.01 Non-insulin dependent type 2 diabetes mellitus E11.9 Time Spent (min) 25
== END 2023-02-06 09:41 | disposition home or self-care (01) ==
LOC: HO.HBS 09:08
PROVIDERS: PCP Internal Medicine; Visit Provider Dietitian, Registered
DX: E66.01 Morbid (severe) obesity due to excess calories (principal); E11.9 Type 2 diabetes mellitus without complications

== ENCOUNTER → 2023-02-06 09:08 | Outpatient (BNVA) | payer OTHER, SELFPAY | PROVIDERS: PCP Internal Medicine; Visit Provider Dietitian, Registered | DX: E66.01 Morbid (severe) obesity due to excess calories (principal); E11.9 Type 2 diabetes mellitus without complications; Z71.3 Dietary counseling and surveillance | CPT/HCPCS: 97802 ==

== ENCOUNTER 2023-02-12 13:34 | Outpatient (AMB) | payer OTHER, SELFPAY ==
--- NOTE | 2023-02-12 13:02 | MHC.WMTHER ---
Intake Intake Visit Reasons: VIDEO Intake Allergies No Known Allergies Allergy (Verified 01/16/23 12:09) [facility] Medical History (Updated 02/12/23 @ 13:38 by Zahra Ravi) Hyperlipidemia Constipation Asthma Anxiety DJD (degenerative joint disease) GERD (gastroesophageal reflux disease) Non-insulin dependent type 2 diabetes mellitus Morbid obesity No known health problems Surgical History (Updated 01/12/23 @ 15:23 by Paulo Brandon, RN) History of removal of skin mole (~06/2007) Hx of LASIK (~12/2022) Family History (Updated 01/12/23 @ 15:26 by Paulo Brandon, RN) Mother Ovarian cancer Breast cancer Social History (Updated 01/12/23 @ 15:24 by Paulo Brandon, RN) Alcohol intake: never Patient Tobacco Use Status: Never used Tobacco Behavioral Health Assessment Weight Management Therapy Therapy Notes Details Patient is looking for weight loss surgery to help improve her health and quality of life. She reported being tired of her weight and health declining. Pt is currently in therapy with Norm Boateng at [facility] which she has been seeing for several years and has followed him from previous clinics. Initially she was seeing him due to high stress, court involvement, and sons autism diagnosis. PCP (who was also employer) prescribed anxiety medications due to poor sleep from stress but has not taken it often. No history of problems with drugs or alcohol or inpatient psychiatric admissions. Patient has no legal involvement at this time. Presenting Concerns Referral Source provider Reason for referral weight loss surgery evaluation Precipitating Event obesity Living Situation Current Living Situation Own At risk of losing current housing? No Satisfied with current living situation? Yes Comments Pt lives with her son and their two dogs. Food/Weight/Diet Expectations of change weight loss and change History/Relationship with food Pt stated that she would often eat when stressed at work, emotionally ate, would pick all day, would eat fast at work due to not have time. Pt stated that she would eat junk food, pastries at work, high calorie foods. History/Relationship with weight Pt stated that she has been struggling with her weight for 13 years. 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 History/Relationship with dieting weight loss clinic in [place] (out of pocket) , lost weight but then gained it back, [place] and lost weight but then had no insurance coverage, also on Ozempic (1mg) with no weight loss. Binge Eating Do you frequently eat large amounts of food in short periods of time, not feeling physically hungry? No Do you feel out of control when you eat a large amount of food in a short period of time? No Do you eat large amounts of food rapidly and typically alone? Yes Night Eating Do you wake up at least once during the night to eat? No If you wake up in the night, do you find that it is necessary to eat something in order to fall back asleep? No Do you have little or no appetite in the morning and feel very hungry in the evening, often overeating between dinner and when you go to bed? No Social History Family history and relationship Pt was born in [place] and raised in [place], [place] by both her parents even though they at age 6, father was very active in her life. both parents remarried and co-parented effectively. She has three half sisters. Pt was raised as an only child. When she from her son's father, she took it very hard. 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 none currently Education Highest grade completed masters in [employer] Preferred learning style Auditory, Verbal, Written, Learn by doing and Visual Currently enrolled in educational program? No Interested in further educational program? 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 Employment Employment Status Unemployed Wants help to find employment? No Financial Situation Describe current financial situation Occasional struggle Financial assistance? None Service Service? No Mental Health and Addiction Treatment Current/Past substance abuse? No Current/Past addictive behavior concerns? No Medical and Physical Health Summary Physical exam in the last year? Yes Pain Screening Current pain? Yes Pain in the last few months? Yes Medications Is the patient compliant with medications? Yes Does the patient have Rodriguez Guardian in place? Not applicable Does the patient use complimentary health approaches? No Trauma/Abuse History History of trauma? No Questionnaires PHQ-9 Over the last 2 weeks, how often have you been bothered by any of the following problems? 1. Little interest or pleasure in doing things: not at all 2. Feeling down, depressed, or hopeless: not at all 3. Trouble falling or staying asleep, or sleeping too much: several days 4. Feeling tired or having little energy: several days 5. Poor appetite or overeating: several days 6. Feeling bad about yourself - or that you are a failure or have let yourself or your family down: not at all 7. Trouble concentrating on things, such as reading the newspaper or watching television: not at all 8. Moving or speaking so slowly that other people could have noticed. Or the opposite - being so fidgety or restless that you have been moving around a lot more than usual: not at all 9. Thoughts that you would be better off or of hurting yourself in some way: not at all Total score: 3 Source: Developed by Drs. Harry Sal, Alisa Villalpando, Luigi Bailon and colleagues, with an educational sage from [employer]. Binge Eating Scale Group 1 A. I don't feel self-conscious about my wt. or body size when I'm with others. B. I feel concerned about how I look to others, but it normally does not make me fell disappointed with myself C. I do get self-conscious about my appearance and wt. which makes me feel disappointed in myself. D. I feel very self-conscious about my wt. and frequently I feel intense shame and disgust for myself. I try to avoid social contacts because of my self-consciousness. Response Group 1: D Group 2 A. I don't have any difficulty eating slowly in the proper manner. B. Although I seem to gobble down foods, I don't end up feeling stuffed because of eating to much. C. At times, I tend to eat quickly and then, I feel uncomfortably full afterwards. D. I have the habit of bolting down my food, without really chewing it. When this happens I usually feel uncomfortably stuffed because I've eaten to much. Response Group 2: C Group 3 A. I feel capable to control my eating urges when I want to. B. I feel like I have failed to control my eating more than the average person. C. I feel utterly helpless when it comes to feeling in control of my eating urges. D. Because I feel so helpless about controlling my eating I have become very desperate about trying to get control. Response Group 3: B Group 4 A. I don't have the habit of eating when I'm bored. B. I sometimes eat when I'm bored, but often I'm able to get busy and get my mind off food. C. I have a regular habit of eating when I'm bored, but occasionally, I can use some other activity to get my mind off eating. D. I have a strong habit of eating when I'm bored. Nothing seems to help me breath the habit. Response Group 4: B Group 5 A. I'm usually physically hungry when I eat something. B. Occasionally, I eat something on impulse even though I really am not hungry. C. I have the regular habit of eating foods, that I might not really enjoy, to satisfy a hungry feeling even though physically, I don't need the food. D. Although I'm not physically hungry, I get a hungry feeling in my mouth that only seems to be satisfied when I eat a food, like sandwich, that fills my mouth. Sometimes, when I eat the food to satisfy my mouth hunger, I then spit the food out so I won't gain weight. Response Group 5: B Group 6 A. I don't feel any guilt or self-hate after I overeat. B. After I overeat, occasionally I feel guilt or self-hate. C. Almost all the time I experience strong guilt or self-hate after I overeat. Response Group 6: B Group 7 A. I don't lose total control of my eating when dieting even after periods when I overeat. B. Sometimes when I eat a forbidden food on a diet, I feel like I blew it and eat even more. C. Frequently, I have the habit of saying to myself, I've blown it now, why not go all the way, when I overeat on a diet. When that happens I eat more. D. I have a regular habit of starting a strict diets for myself but I break the diets by going on an eating binge. My life seems to be either a feast or famine. Response Group 7: B Group 8 A. I rarely eat so much food that I feel uncomfortably stuffed afterwards. B. Usually about once a month, I each such a quantity of food, I end up feeling very stuffed. C. I have regular periods during the month when I eat large amounts of food, either at mealtime or at snacks. D. I eat so much food that I regularly feel quite uncomfortable after eating and sometimes a bit nauseous. Response Group 8: B Group 9 A. My level of calorie intake does not go up very high or go down very low on a regular basis. B. Sometimes after I overeat, I will try to reduce my caloric intake to almost nothing to compensate for the excess calories I've eaten. C. I have a regular habit of overeating during the night. It seems that my routine is not to be hungry in the morning but overeat in the evening. D. In my adult years, I have had week-long periods where I practically starve myself. This follows periods when I overeat. It seems I live a life of either feast or famine. Response Group 9: C Group 10 A. I usually am able to stop eating when I want to. I know when enough is enough. B. Every so often, I experience a compulsion to eat which I can't seem to control. C. Frequently, I experience strong urges to eat which I seem unable to control, but at other times I can control my eating urges. D. I feel incapable of controlling urges to eat. I have a fear of not being able to stop eating voluntarily. Response Group 10: B Group 11 A. I don't have any problem stopping eating when I feel full. B. I usually can stop eating when I feel full but occasionally overeat leaving me feeling uncomfortably stuffed. C. I have a problem stopping eating once I start and usually I feel uncomfortably stuffed after I eat a meal. D. Because I have a problem not being able to stop eating when I want, I sometimes have to induce vomiting to relieve my stuffed feeling. Response Group 11: B Group 12 A. I seem to eat just as much when I'm with others, Family social gatherings as when I'm by myself. B. Sometimes, when I'm with other persons, I don't eat as much as I want to eat because I'm self-conscious about my eating. C. Frequently, I eat only a small amount of food when others are present, because I'm very embarrassed about my eating. D. I feel so ashamed about overeating that I pick times to overeat when I know no one will see me. I feel like a closet eater. Response Group 12: B Group 13 A. I eat three meals a day with only an occasional between meal snack. B. I eat 3 meals a day, but I also normally snack between meals. C. When I am snacking heavily, I get in the habit of skipping regular meals. D. There are regular periods when I seem to be continually eating, with no planned meals. Response Group 13: C Group 14 A. I don't think much about trying to control unwanted eating urges. B. At least some of the time, I feel my thoughts are pre-occupied with trying to control my eating urges. C. I feel that frequently I spend much time thinking about how much I ate or about trying not to eat anymore. D. It seems to me that most of my waking hours are pre-occupied by thoughts about eating or not eating. I feel like I'm constantly struggling not to eat. Response Group 14: B Group 15 A. I don't think about food a great deal. B. I have strong craving for food but they last only for brief periods of time. C. I have days when I can't seem to think about anything else but food. D. Most of my days seem to be pre-occupied with thoughts about food. I feel like I live to eat. Response Group 15: B Group 16 A. I usually know whether or not I'm physically hungry. I take the right portion of food to satisfy me. B. Occasionally, I feel uncertain about knowing whether or not I'm physically hungry. A these times it's hard to know how much food I should take to satisfy me. C. Even though I might know how many calories I should eat, I don't have any idea what is a normal amount of food for me. Response Group 16: B Binge Eating Score: 21 Score less than 17 Minimal Risk Score between 18-26 Moderate Risk Score between 27-46 High Risk Assessment & Plan Assessment & Plan (1) Anxiety disorder, unspecified: Code(s): F41.9 - Anxiety disorder, unspecified (2) Obesity: Code(s): E66.9 - Obesity, unspecified Qualifiers: Obesity type: due to excess calories Obesity classification: adult class 2 (BMI 35 - 39.9) Serious obesity comorbidity presence: with serious comorbidity Body mass index: BMI 39.0-39.9 Qualified Code(s): E66.01 - Morbid (severe) obesity due to excess calories; Z68.39 - Body mass index [BMI] 39.0-39.9, adult Plan Patient has been in therapy for a few years now to manage stress and also given medication due to loss of sleep from anxiety. She is doing well at this time and should continue seeing her therapist. She is cleared for surgery when ready. Telehealth Telehealth Location of provider rendering services: other Location of patient: address on file Patient Identification confirmed using: Name, : Yes Telehealth method: video Patient verbally consented to treatment: Yes Patient verbally consented to billing insurance company: Yes Patient informed of any privacy concerns related to visit: Yes Minutes spent on Phone/Video with Pt.: 50 Coding Level of Care Code Tele Psy Diag Eval (47626) Diagnoses Anxiety disorder, unspecified F41.9 Class 2 severe obesity due to excess calories with serious comorbidity and body mass index (BMI) of 39.0 to 39.9 in adult E66.01; Z68.39 Obesity type: due to excess calories Obesity classification: adult class 2 (BMI 35 - 39.9) Serious obesity comorbidity presence: with serious comorbidity Body mass index: BMI 39.0-39.9 Time Spent (min) 50
== END 2023-02-12 13:48 | disposition home or self-care (01) ==
LOC: HO.HBST 13:34
PROVIDERS: PCP Internal Medicine; Visit Provider Counselor Mental Health
DX: F41.9 Anxiety disorder, unspecified (principal); E66.01 Morbid (severe) obesity due to excess calories; Z68.39 Body mass index [BMI] 39.0-39.9, adult
CPT/HCPCS: 90791

== ENCOUNTER → 2023-02-12 13:34 | Outpatient (BNVA) | payer OTHER, SELFPAY | PROVIDERS: PCP Internal Medicine; Visit Provider Counselor Mental Health ==

== ENCOUNTER 2023-02-20 08:25 | Outpatient (REF) | payer OTHER, SELFPAY ==
--- NOTE | ~2023-02-20 | US_ITS ---
EXAMINATION: US COMPLETE ABDOMEN WITH LIVER ELASTOGRAPHY CLINICAL INFORMATION: Morbid (severe) obesity due to excess calories COMPARISON: Abdomen CT from 03/22/2021 TECHNIQUE: Real-time imaging of the abdominal viscera. Noninvasive ultrasound liver fibrosis assessment is performed using Eduardo ElastPQ point quantification shear wave elastography (2D-SWE) with a C5-2 MHz transducer. Multiple elastography samples are obtained. FINDINGS: PANCREAS: Normal. ABDOMINAL AORTA: The proximal, middle, and distal aortic segments are normal in caliber. INFERIOR VENA CAVA: Visualized portions are normal. LIVER: Liver has normal size and contour. The parenchymal echotexture is normal on subjective assessment. No focal liver lesion or intrahepatic bile duct dilatation. The right lobe measures 16.9 cm in length. The left lobe measures 10.4 cm in length. Portal flow is normal Shear wave liver elastography median stiffness is 1.36 m/s (reference: normal median stiffness is 1.3 m/s or less). IQR/median stiffness to assess sampling precision is 0.33 (reference: good quality data set is IQR/median stiffness of 0.15 or less). GALLBLADDER: Normal. The gallbladder is physiologically distended without evidence of stones, sludge, polyps, wall thickening or pericholecystic fluid. COMMON BILE DUCT: Normal in caliber measuring 0.4 cm in diameter. RIGHT KIDNEY: Normal. No hydronephrosis. No renal calculi or focal parenchymal lesions. The kidney measures cm in maximum dimension. LEFT KIDNEY: Normal. No hydronephrosis. No renal calculi or focal parenchymal lesions. The kidney measures cm in maximum dimension. SPLEEN: Normal. The spleen measures 10.2 cm in maximum dimension. FREE FLUID: None. US/US abdomen comp w elastography IMPRESSION: Liver has normal normal echotexture on a subjective assessment. The shear wave liver elastography reveals a median stiffness is 1.36 m/s (reference: normal median stiffness is 1.3 m/s or less). The reliability of this measurement is questionable due to IQR/Median value of 0.33 (i.e., poor quality data set). In the absence of other known clinical signs, imaging findings rule out compensated advanced chronic liver disease. REFERENCE: Society of Radiologists in Ultrasound Liver Stiffness Thresholds (2020): LIVER STIFFNESS THRESHOLDS: *Liver Stiffness equal or less than 1.3 m/s: High probability of being normal. *Liver Stiffness less than 1.7 m/s: In the absence of other known clinical signs, rules out compensated advanced chronic liver disease. *Liver Stiffness 1.7-2.1 m/s: Suggestive of compensated advanced chronic liver disease but need further test for confirmation. *Liver Stiffness over 2.1 m/s: Rules in compensated advanced chronic liver disease. *Liver Stiffness over 2.4 m/s: Suggestive of clinically significant portal hypertension. QUALITY OF DATA SET: *IQR/Median value equal or less than 0.15 implies a quality data set. *IQR/Median value over 0.15 implies a poor quality data set. OTHER CONSIDERATIONS: The stage of liver fibrosis may be overestimated in the setting of acute hepatitis, liver inflammation, elevated liver function tests, hepatic vascular congestion, obstructive cholestasis, non-fasting state, and infiltrative diseases such as amyloidosis and lymphoma. In some patients with NAFLD, the liver stiffness thresholds for compensated advanced chronic liver disease may be lower. In causes other than viral hepatitis and NAFLD, liver stiffness thresholds are not well established.
== END 2023-02-20 08:26 | disposition home or self-care (01) ==
LOC: HO.US 08:25
PROVIDERS: PCP Internal Medicine; Visit Provider Surgery
DX: E66.01 Morbid (severe) obesity due to excess calories (principal); K21.9 Gastro-esophageal reflux disease without esophagitis; E11.9 Type 2 diabetes mellitus without complications; E78.5 Hyperlipidemia, unspecified
CPT/HCPCS: 76700; 76981

== ENCOUNTER 2023-02-23 08:08 | Outpatient (AMB) | payer OTHER, SELFPAY ==
--- NOTE | 2023-02-23 09:37 | A.OFFVIS_ITS ---
Intake VS Expanded 02/23/23 09:47 Height 5 ft Weight 197 lb 2 oz BMI 38.5 Body Fat % 49.4 Body Fat Mass 97.4 Fat Free Mass 99.8 Visceral Fat Rating 20 Body Water % 34.7 Body Water Mass 68.4 Basal Metabolic Rate/Score 1,334 Intake Visit Reasons: TV Follow Up SWL Allergies No Known Allergies Allergy (Verified 01/16/23 12:09) HPI TV Follow Up SWL HPI Details Start time: 9.32am, End time: 9.52am ?I spent 15 minutes speaking with the patient on the phone plus an additional 5 minutes reviewing and updating records for a total of 20 minutes HPI Comments History of Present Illness Details Overall weight loss: 8.8lbs, or 4.27% TBWL Is doing 2 Celebrate Rebuild protein shakes (1 scoop in 8oz almond milk), 2 Celebrate protein bars and one meal (8 forks of meat and 8 forks of salad or vegetables) Exercise: treadmill daily for 300 calories (speed: 3.0 and incline of 3.0) PFSH Medical History (Updated 02/12/23 @ 13:38 by Zahra Ravi) Hyperlipidemia Constipation Asthma Anxiety DJD (degenerative joint disease) GERD (gastroesophageal reflux disease) Non-insulin dependent type 2 diabetes mellitus Morbid obesity No known health problems Surgical History (Updated 01/12/23 @ 15:23 by Paulo Brandon, RN) History of removal of skin mole (~06/2007) Hx of LASIK (~12/2022) Family History (Updated 01/12/23 @ 15:26 by Paulo Brandon, RN) Mother Ovarian cancer Breast cancer Social History (Updated 01/12/23 @ 15:24 by Paulo Brandon, RN) Alcohol intake: never Patient Tobacco Use Status: Never used Tobacco Assessment & Plan Assessment & Plan (1) Obesity: Code(s): E66.9 - Obesity, unspecified Qualifiers: Obesity type: due to excess calories Obesity classification: adult class 2 (BMI 35 - 39.9) Serious obesity comorbidity presence: with serious comorbidity Body mass index: BMI 39.0-39.9 Qualified Code(s): E66.01 - Morbid (severe) obesity due to excess calories; Z68.39 - Body mass index [BMI] 39.0- 39.9, adult Plan: 1. Continue same nutritional plan of 2 Celebrate Rebuild protein shakes (1 scoop in 8oz almond milk), 2 Celebrate protein bars and one meal (8 forks of meat and 8 forks of salad or vegetables) 2. Exercise: continue treadmill daily for 300 calories (speed: 3.0 and incline of 3.0) 3. Continue to send me weight measurements weekly on Sunday Telehealth Telehealth Location of provider rendering services: practice address Location of patient: address on file Patient Identification confirmed using: Name, : Yes Telehealth method: voice only Patient verbally consented to treatment: Yes Patient verbally consented to billing insurance company: Yes Patient informed of any privacy concerns related to visit: Yes Minutes spent on Phone/Video with Pt.: 20 Coding Level of Care Code Tele Est Pt Level 3 (43741) Diagnoses Class 2 severe obesity due to excess calories with serious comorbidity and body mass index (BMI) of 39.0 to 39.9 in adult E66.01; Z68.39 Obesity type: due to excess calories Obesity classification: adult class 2 (BMI 35 - 39.9) Serious obesity comorbidity presence: with serious comorbidity Body mass index: BMI 39.0-39.9 Time Spent (min) 20
[2023-02-23 09:47] VITALS: BMI 38.5
== END 2023-02-23 09:53 | disposition home or self-care (01) ==
LOC: HO.HBS 08:08
PROVIDERS: PCP Internal Medicine; Referring Provider Internal Medicine; Visit Provider Surgery
DX: E66.01 Morbid (severe) obesity due to excess calories (principal); Z68.38 Body mass index [BMI] 38.0-38.9, adult
CPT/HCPCS: 99213

== ENCOUNTER → 2023-02-23 08:08 | Outpatient (BNVA) | payer OTHER, SELFPAY | PROVIDERS: PCP Internal Medicine; Visit Provider Surgery ==

== ENCOUNTER 2023-02-27 08:57 | Day surgery (SDC) | payer OTHER, SELFPAY ==
[2023-02-26 10:57] VITALS: BMI 38.5
--- NOTE | 2023-02-26 13:12 | HO.ANESPROP2 ---
Documented by User: Shira Christine NP 02/26/23 13:13 HPI - Anesthesia Eval Consult details Narrative: 33yo F for Upper Endoscopy PMFSH Active Problems Active Problems: All Active Problems (Updated 02/26/23 @ 10:46 by Lois Hall RN) Anxiety disorder, unspecified (Acute) Obesity (Acute) BMI 39.0-39.9,adult (Acute) Zinc deficiency (Acute) Vitamin B1 deficiency (Acute) Vitamin A deficiency (Acute) Vitamin D deficiency (Acute) Hyperlipidemia (Acute) Constipation (Acute) Asthma (Acute) Anxiety (Acute) DJD (degenerative joint disease) (Acute) GERD (gastroesophageal reflux disease) (Acute) Non-insulin dependent type 2 diabetes mellitus (Acute) Morbid obesity (Acute) Past Medical History Medical History Hyperlipidemia Constipation Asthma Anxiety DJD (degenerative joint disease) GERD (gastroesophageal reflux disease) Non-insulin dependent type 2 diabetes mellitus Morbid obesity Family History Family History Mother Ovarian cancer Breast cancer Surgical History Surgical History History of removal of skin mole (~06/2007) Hx of LASIK (~12/2022) Social History Social History Alcohol intake: never Patient Tobacco Use Status: Never used Tobacco Use of substances other than those prescribed or required for medical reasons: No Are you DNR?: No Advance Directives: No Advance Directives Information Provided: Yes Meds Allergies Allergy/AdvReac Type Severity Reaction Status Date / Time No Known Allergies Allergy Verified 01/16/23 12:09 Home Medications Medication Instructions Recorded Confirmed Last Taken Type esomeprazole magnesium 40 mg 40 mg PO DAILY 01/12/23 02/26/23 Unknown History capsule,delayed release lactulose 10 gram/15 mL oral ml PO 01/12/23 01/16/23 Unknown History solution lorazepam 0.5 mg tablet 0.5 mg PO BID PRN Anxiety 01/12/23 02/26/23 Unknown History medroxyprogesterone 104 mg/0.65 mL mg subcut 01/12/23 01/16/23 Unknown History subcutaneous syringe (Depo-SubQ provera 104) omega 7-sxd-xnb-fish oil 1,000 mg 1 cap PO DAILY 01/12/23 02/26/23 Unknown History (120 mg-180 mg) capsule (Fish Oil) polyethylene glycol 3350 17 17 g PO DAILY 01/12/23 02/26/23 Unknown History gram/dose oral powder (Miralax) semaglutide 1 mg/dose (4 mg/3 mL) 4 mg subcut QWEEK 01/12/23 02/26/23 02/14/23 History subcutaneous pen injector (Ozempic) fluticasone propionate 110 1 puff inhalation Q12H 01/16/23 02/26/23 Unknown History mcg/actuation HFA aerosol inhaler (Flovent HFA) Exam Height,Weight and Vital Signs: Height 5 ft Weight 89.358 kg Pertinent Lab Results Pertinent Lab Results: Laboratory Tests 01/17/23 08:21 WBC 10.9 H Hgb 12.6 Hct 38.3 Plt Count 319 Sodium 141 Potassium 4.1 Chloride 109 H Carbon Dioxide 24 BUN 12 Creatinine 0.85 Assessment and Plan Assessment Anesthesia Assessment: Chart Reviewed Documented by User: Melissa Mustafa MD 02/27/23 10:44 HPI - Anesthesia Eval Consult details Narrative: 33yo F for Upper Endoscopy, off ozempic from feb 14 [facility] [place] Past Medical History Medical History Hyperlipidemia Constipation Asthma Anxiety DJD (degenerative joint disease) GERD (gastroesophageal reflux disease) Non-insulin dependent type 2 diabetes mellitus Morbid obesity Family History Family History Mother Ovarian cancer Breast cancer Family history of problems with anesthesia: No Surgical History Surgical History History of removal of skin mole (~06/2007) Hx of LASIK (~12/2022) History of Problems with Anesthesia: No Social History Social History Alcohol intake: never Patient Tobacco Use Status: Never used Tobacco Use of substances other than those prescribed or required for medical reasons: No Are you DNR?: No Advance Directives: No Advance Directives Information Provided: Yes Meds Allergies Allergy/AdvReac Type Severity Reaction Status Date / Time No Known Allergies Allergy Verified 01/16/23 12:09 Home Medications Medication Instructions Recorded Confirmed Last Taken Type esomeprazole magnesium 40 mg 40 mg PO DAILY 01/12/23 02/26/23 Unknown History capsule,delayed release lactulose 10 gram/15 mL oral ml PO 01/12/23 01/16/23 Unknown History solution lorazepam 0.5 mg tablet 0.5 mg PO BID PRN Anxiety 01/12/23 02/26/23 Unknown History medroxyprogesterone 104 mg/0.65 mL mg subcut 01/12/23 01/16/23 Unknown History subcutaneous syringe (Depo-SubQ provera 104) omega 2-onl-rcs-fish oil 1,000 mg 1 cap PO DAILY 01/12/23 02/26/23 Unknown History (120 mg-180 mg) capsule (Fish Oil) polyethylene glycol 3350 17 17 g PO DAILY 01/12/23 02/26/23 Unknown History gram/dose oral powder (Miralax) semaglutide 1 mg/dose (4 mg/3 mL) 4 mg subcut QWEEK 01/12/23 02/26/23 02/14/23 History subcutaneous pen injector (Ozempic) fluticasone propionate 110 1 puff inhalation Q12H 01/16/23 02/26/23 Unknown History mcg/actuation HFA aerosol inhaler (Flovent HFA) Exam Airway Mallampati Class: II TM Dist: >3cm Neck ROM: Full Heart: rrr Lungs: cta Assessment and Plan Assessment Anesthesia Assessment: Anesthesia Plan Discussed Final Anesthetic Review Family History of Problems with Anesthesia: No History of Problems with Anesthesia: No NPO: Yes ASA Class: III Final Preanesthetic Review: No Changes in Pt Med Stat, Meds/Allgs Chart Reviewed, Consent Obtained/Reviewed and Anes Risks/Benef Reviewed Patient Risk: Intermediate Procedure Risk: Low Anesthetic Plan Anesthetic Plan: MAC: Disposition: Standard PACU
[2023-02-27 09:38] VITALS: BMI 38.9
[2023-02-27 09:44] LABS: UPreg QC Valid YES; Urine Pregnancy NEGATIVE (NEGATIVE)
[2023-02-27 09:48] VITALS: BP 122/87; PULSE 93; RESP 16; TEMP 37; O2SAT 95
[2023-02-27 10:08] LABS: Glucose, Whole Blood 96 mg/dL (60-115)
[2023-02-27] MEDS: Lactated Ringers 1,000 ML 100 ML IVCONT (10:14)
--- NOTE | 2023-02-27 10:14 | MHC.SHP ---
Pre-Procedural Eval Section A Date of Service: 02/27/23 The patient is an INPATIENT: No The History & Physical has been completed within 30 days and I have reviewed it.: No Section B Chief Complaint: gerd Relevant Family History (Specify if Yes): No Relevant Social History: None Present Medications: None Medical History: No relevant PMH History of Previous Operations: No relevant previous surgery Allergies: Allergies Allergy/AdvReac Type Severity Reaction Status Date / Time No Known Allergies Allergy Verified 01/16/23 12:09 Review of Systems Sugical H&P ROS: Negative: Constitution, Cardiovascular, Respiratory, Neurological, Psychiatric, Hem-Onc, Allergic/Immunologic, Gastrointestinal, Genitourinary, Musculoskeletal, Integumentary, Endocrine and Eyes/Ears/Nose/Throat Exam Surgical H&P Exam: Normal: HEENT, Normal: Heart, Normal: Lungs, Normal: Extremities, Normal: Abdomen, Normal: Skin and Normal: Neurological Plan Diagnosis/Plan: Unchanged (EGD to assess the presence of esophagitis. Risks of bleeding and perforation were discussed.) I have reviewed the history and physical and performed a pertinent physical examination on my patient. No changes have occurred unless specified. Time Spent With Patient Time: Total time managing care of this patient today ____ minutes.
--- NOTE | 2023-02-27 10:16 | P.BOP_ITS ---
Brief Operative Note Date of Service: 02/27/23 Pre-op diagnosis: GERD Post-op diagnosis: same Procedure: PROCEDURE DATE: 02/27/23 PREOPERATIVE DIAGNOSIS: GERD POSTOPERATIVE DIAGNOSIS: ?Same as above. PROCEDURE: Doipwwpe-bkommy-tebcyvxamcly with biopsies Surgeon: Gian Gee M.D.. Ph.D. Electrical Instrument Repairer: None ? Anesthesia: IV sedation Estimated blood loss: ?Minimal FINDINGS AND PROCEDURE: ? OPERATIVE INDICATIONS: ?The patient is a 33 year old female known to me who is interested in bariatric surgery. The patient has GERD. Based on this information I recommended an upper endoscopy to evaluate the patient's symptoms and assess for esophagitis. Risks and complications of the surgery were discussed with the patient in advance particularly the possibility of perforation or bleeding that may require surgical intervention. The patient understood the risks and was in agreement with the plan. ? PROCEDURE: After informed consent was obtained by the patient, the patient was ?transferred to the Operating Room and was placed in the supine position.? After successful induction of IV sedation, a mouth block was inserted and the patient was placed in the left lateral decubitus position. An upper endoscopy was performed next, the oropharynx and esophagus appeared within the normal limits. There was no hiatal hernia. The z-line was smooth. Two biopsies were obtained from the distal esophagus 2-3 cm proximal to the GE junction and two additional biopsies from the GE junction. The stomach was entered and it appeared to be of normal size. There was no gastritis. There was no stricture or ulcer. The scope was retroflexed and the gastric fundus was inspected in its entirety. A biopsy was obtained from the distal antrum and gastric fundus. No significant bleeding was noted from any of the biopsy sites. The scope was then advanced into the duodenum which appeared to be normal as well. At that point the duodenum ?and the stomach were decompressed and the scope was withdrawn from the patient's mouth. The patient extubated and was transferred in stable condition to the Recovery Room for further care. I was present and performed all steps of the procedure. There were no residents to assist with this case. Juan Gee M.D., Ph.D. Surgeon: Raheel Gee MD Anesthesia: MAC Was an Electrical Instrument Repairer used for this Procedure?: No Estimated blood loss (mL): 0 IV fluids (mL): 400 Urine output (mL): 0 (No Pollock to record output) Pathology: other (1) antrum x1, 2) gastric fundus x1, 3) GE junction x2, distal esophagus x2) Condition: stable Disposition: PACU
[2023-02-27 11:15] VITALS: BP 125/96; PULSE 125; RESP 16; TEMP 36.4; O2SAT 97
[2023-02-27 11:30] VITALS: BP 113/86; PULSE 111; RESP 16; O2SAT 97
[2023-02-27 11:45] VITALS: BP 112/80; PULSE 94; RESP 16; TEMP 36.6; O2SAT 97
== END 2023-02-27 12:07 | disposition home or self-care (01) ==
PROVIDERS: Nurse Practitioner; PCP Internal Medicine; Visit Provider Surgery
PROC: 0DJ08ZZ Inspection of Upper Intestinal Tract, Via Natural or Artificial Opening Endoscopic (ICD-10-PCS; CPT 43235; principal; 2023-02-27 11:00)
DX: K21.9 Gastro-esophageal reflux disease without esophagitis (principal); E66.01 Morbid (severe) obesity due to excess calories; Z68.39 Body mass index [BMI] 39.0-39.9, adult; K59.00 Constipation, unspecified; E78.5 Hyperlipidemia, unspecified; E11.9 Type 2 diabetes mellitus without complications; J45.909 Unspecified asthma, uncomplicated; F41.9 Anxiety disorder, unspecified; M19.90 Unspecified osteoarthritis, unspecified site; Z79.51 Long term (current) use of inhaled steroids; Z79.899 Other long term (current) drug therapy; Z79.85 Long-term (current) use of injectable non-insulin antidiabetic drugs
CPT/HCPCS: 43239; 81025; 82947; 88305; 88313; 88342; J2250; J2704

== ENCOUNTER → 2023-02-27 08:57 | Outpatient (BNV) | payer OTHER, SELFPAY | PROVIDERS: PCP Internal Medicine; Visit Provider Surgery | DX: K21.9 Gastro-esophageal reflux disease without esophagitis (principal) | CPT/HCPCS: 43239 ==

== ENCOUNTER 2023-03-10 08:06 | Outpatient (REF) | payer OTHER, SELFPAY ==
[2023-03-10 08:54] LABS: MANUAL DIFF FLAG NO
[2023-03-10 09:15] LABS: Basophils Percent Auto 0.1 % (0-2); Eosinophils Absolute Auto 0.5 X10*3/uL (0.0-0.4); Eosinophils Percent Auto 6.4 % (0-4); Hematocrit 37.1 % (37.0-47.0); Hemoglobin 12.2 g/dl (12.0-16.0); Imm Gran Abs Auto 0.01 X10*3/uL (0.00-0.03); Imm Gran Pct Auto 0.1 % (0.0-0.4); Lymphocytes Absolute Auto 2.5 X10*3/uL (1.2-4.9); Lymphocytes Percent Auto 33.3 % (20-40); Mean Corpuscular HGB Conc 32.9 g/dl (31.0-35.0); Mean Corpuscular Hemoglobin 28.8 pg (27.0-33.0); Mean Corpuscular Volume 87.5 fL (80.0-98.0); Mean Platelet Volume 10.4 fL (9.4-12.3); Monocytes Absolute Auto 0.4 X10*3/uL (0.1-1.2); Monocytes Percent Auto 4.8 % (2-11); Neutrophils Absolute Auto 4.1 x10*3/uL (2.0-8.3); Neutrophils Percent Auto 55.3 % (45-73); Platelet Count 283 X10*3/uL (160-400); Red Blood Count 4.24 X10*6/uL (4.20-5.50); Red Cell Distribution Width 13.1 % (11.0-16.0); White Blood Count 7.5 X10*3/uL (4.8-10.8)
[2023-03-10 09:17] LABS: Prothrombin Time 11.7 SEC (11.1-13.3)
[2023-03-10 09:20] LABS: Partial Thromboplastin Time 28.1 SEC (26.0-36.8)
[2023-03-10 09:28] LABS: Estimated Average Glucose 91 mg/dL; Hemoglobin A1c % 4.8 % (<6.0)
[2023-03-10 10:15] LABS: Alanine Aminotransferase 11 U/L (0-31); Albumin Level 3.9 g/dL (3.5-5.0); Alkaline Phosphatase 59 U/L (39-117); Aspartate Amino Transferase 12 U/L (5-31); Bilirubin Total 0.3 mg/dL (0.0-1.0); Blood Urea Nitrogen 10 mg/dL (9-16); C Reactive Protein 0.42 mg/dL (< or = 0.50); Carbon Dioxide 21 mmol/L (22-29); Chloride 113 mmol/L (96-108); Cholesterol 141 mg/dL (<200); Estimated Glomerular Filt Rate > 60; Glucose Random 91 mg/dL (60-115); HDL Cholesterol 32 mg/dL (>40); Iron 63 mcg/dL (30-160); LDL Cholesterol Calculated 95 mg/dL (<100); Percent Iron Saturation 30 % (15-50); Potassium 4.4 mmol/L (3.3-5.1); Sodium 140 mmol/L (135-145); Total Iron Binding Capacity 209 mcg/dL (228-428); Total Protein 7.2 g/dL (6.5-8.0); Triglycerides 70 mg/dL (<150); Unsaturated Iron Binding 146 ug/dL
[2023-03-10 10:26] LABS: Anion Gap 14 (12-20); Ferritin 203 ng/mL (10-122); Vitamin D 25-OH Total 37.6 ng/mL (>30)
[2023-03-10 10:48] LABS: TSH reflex Free T4 0.53 uIU/mL (0.32-4.0)
[2023-03-10 10:54] LABS: Vitamin B12 439 pg/mL (200-900)
[2023-03-13 16:38] LABS: Zinc 55 mcg/dL (60-130)
[2023-03-14 13:13] LABS: Vitamin B1 32 nmol/L (8-30)
[2023-03-14 17:14] LABS: Vitamin A 31 mcg/dL (38-98)
== END 2023-03-10 08:07 | disposition home or self-care (01) ==
LOC: HO.LAB 08:06
PROVIDERS: Visit Provider Physician Assistant Surgical
DX: Z01.818 Encounter for other preprocedural examination (principal)
CPT/HCPCS: 36415; 80053; 80061; 82306; 82607; 82728; 83036; 83540; 84425; 84443; 84590; 84630; 85025; 85610; 85730; 86140

== ENCOUNTER 2023-03-12 08:11 | Outpatient (AMB) | payer OTHER, SELFPAY ==
[2023-03-12 09:09] VITALS: BMI 37.3
--- NOTE | 2023-03-12 09:09 | MHC.OFFVISWM ---
Intake VS Expanded 03/12/23 09:09 Height 5 ft Weight 191 lb 2 oz BMI 37.3 Body Fat % 47.6 Body Fat Mass 91 Fat Free Mass 100.2 Visceral Fat Rating 19 Body Water % 35.9 Body Water Mass 68.6 Basal Metabolic Rate/Score 1,338 Intake Visit Reasons: TV Pre Op LSG 03/15/23 Allergies No Known Allergies Allergy (Verified 01/16/23 12:09) HPI TV Pre Op LSG 03/15/23 HPI Details Start time: 8.56am, End time: 9.16am ?I spent 15 minutes speaking with the patient on the phone plus an additional 5 minutes reviewing and updating records for a total of 20 minutes HPI Comments History of Present Illness Details Overall weight loss: 14.8lbs, or 7.18% TBWL Is doing one Celebrate Rebuild protein shake with one scoop in almond, another with 1.5 scoops in almond milk, 2 Celebrate protein bars and one meal (8 forks of protein and 8 forks of salad or vegetables) Exercise: is doing treadmill for 300 calories per day, daily PFS Medical History Hyperlipidemia Constipation Asthma Anxiety DJD (degenerative joint disease) GERD (gastroesophageal reflux disease) Non-insulin dependent type 2 diabetes mellitus Morbid obesity Surgical History History of removal of skin mole (~06/2007) Hx of LASIK (~12/2022) Family History Mother Ovarian cancer Breast cancer Social History Alcohol intake: never Patient Tobacco Use Status: Never used Tobacco Assessment & Plan Assessment & Plan (1) Obesity: Code(s): E66.9 - Obesity, unspecified Qualifiers: Obesity type: due to excess calories Obesity classification: adult class 2 (BMI 35 - 39.9) Serious obesity comorbidity presence: with serious comorbidity Body mass index: BMI 39.0-39.9 Qualified Code(s): E66.01 - Morbid (severe) obesity due to excess calories; Z68.39 - Body mass index [BMI] 39.0-39.9, adult Plan: 1. Plan for lap sleeve gastrectomy including upper GI endoscopy. All tests has been completed and reviewed and the patient is cleared for the surgery.? If diaphragmatic or ventral hernias are present at time of surgery, these will be repaired laparoscopically as well. Risks and complications were discussed in detail including possible conversion to an open procedure, anastomotic leak, bleeding requiring transfusion, small bowel obstruction, , DVT and pulmonary embolism, cardiac, or pulmonary complications, as intermodal customer service complications such as anastomotic ulcer, insufficient weight loss and vitamin deficiencies. I emphasized the importance of close follow-up, adherence to instructions and good communication. So far she has proven to be an excellent communicator and very compliant with all our directions accomplishing a great weight loss. I believe that she is an excellent candidate and she is ready. ? 2. Preop prescriptions were provided and explained the purpose of each one. Need to be purchased preop. Start Pantoprazole now as you get it from the pharmacy, 1 pill per day. Sucralfate and Zofran are for after surgery as needed.? 3. Bowel prep: please do 7 packets ?of Miralax mixing each one with a an 8oz glass of water, crystal light, gatorade zero, or propel ?on 03/11/23 and the same amount on 03/12/23 The Miralax you begin with one packet at a time in 8oz water or crystal light, gatorade zero, or propel ?as early in the day as you can and you do them back to back until you finish them. Continue the protein shakes during ?the bowel prep. 4. Needs to purchase 1oz medicine cups . 5. Needs to purchase Children's liquid Tylenol for postop pain control. 6. Stop Ozempic and the control pill as of tomorrow 03/10/23. Avoid aspirin, motrin, Advil, Aleve, Ibuprofen, Naproxyn. Tylenol is OK. 7. She needs to purchase the Celebrate 4:1 protein shakes from the hospital's gift shop. 8. Will do basic preop blood work-up tomorrow 03/10/23 fasting overnight. 9. Importance of adherence to postop folllow-up and recommendations was underscored and she understands that. 10. Stop food and bars as of tomorrow 03/10/23 and continue with 4 Celebrate Rebuild protein shakes (ONE scoop EACH in 8oz almond milk) at 7am-9am, 10am-12pm, 1pm-3pm, 4pm-6pm and one more Celebrate Rebuild protein shake with TWO scoops in 8oz of almond milk at 7pm-9pm 11. No soups, broths or V8 12. The patient's medical history has been reviewed and they are considered low risk for post op DVT and therefore DVT prophylaxis is not considered necessary. Travel after surgery was reviewed. The patient has not disclosed any travel plans during the first 30 days after surgery and they have been advised that within the first 30 days after surgery any bus, plane, train or car travel over 2 hours in duration is contraindicated due to the possibility of developing blood clots from immobility. Any travel, needs to include periods of ambulation of 10 minutes in duration every 2 hours.? Patient was instructed to discuss any plans for travel during this period with their bariatric surgeon. 13. Please take at the day of surgery the following medications: 14. Stop any control pills and don't use them for one month after surgery 15. Absolutely no smoking or vaping, or marijuana until the surgery and for at least the first 4 weeks. Only nicotine patches are allowed. 16. Send me weight measurements again on 03/15/23 the day of surgery before you go to the hospital. 17. Avoid any steroids by mouth for any reason. Let me know if someone prescribes them to you 18. These instructions supersede anything else you read in the handbook, anything you watched in videos or classes or you were told by any other provider. If there is any conflict, you follow the above instructions and nothing else. Telehealth Telehealth Location of provider rendering services: practice address Location of patient: address on file Patient Identification confirmed using: Name, : Yes Telehealth method: voice only Patient verbally consented to treatment: Yes Patient verbally consented to billing insurance company: Yes Patient informed of any privacy concerns related to visit: Yes Minutes spent on Phone/Video with Pt.: 20 Coding Level of Care Code Tele Est Pt Level 3 (96309) Diagnoses Class 2 severe obesity due to excess calories with serious comorbidity and body mass index (BMI) of 39.0 to 39.9 in adult E66.01; Z68.39 Obesity type: due to excess calories Obesity classification: adult class 2 (BMI 35 - 39.9) Serious obesity comorbidity presence: with serious comorbidity Body mass index: BMI 39.0-39.9 Time Spent (min) 20
== END 2023-03-12 09:17 | disposition home or self-care (01) ==
LOC: HO.HBS 08:11
PROVIDERS: PCP Internal Medicine; Visit Provider Surgery
DX: E66.01 Morbid (severe) obesity due to excess calories (principal); Z68.39 Body mass index [BMI] 39.0-39.9, adult
CPT/HCPCS: 99024

== ENCOUNTER → 2023-03-12 08:11 | Outpatient (BNVA) | payer OTHER, SELFPAY | PROVIDERS: PCP Internal Medicine; Visit Provider Surgery ==

== ENCOUNTER 2023-03-13 09:09 | Outpatient (REF) | payer OTHER, SELFPAY ==
--- NOTE | ~2023-03-13 | FL_ITS ---
EXAMINATION: XR FLUOROSCOPY UPPER GI WITH AIR CLINICAL INFORMATION: Preop evaluation prior to bariatric surgery COMPARISON: None TECHNIQUE: Fluoroscopic air contrast upper GI examination was performed utilizing standard techniques with thin and thick barium and effervescent granules. Numerous spot images were obtained. Several cine sequences were also obtained. FINDINGS: Lateral cine images of the oropharynx and hypopharynx demonstrate normal swallow mechanism with normal epiglottic inversion and soft palate elevation. No tracheal penetration, glottic or subglottic aspiration identified. No nasopharyngeal reflux present. Hypopharyngeal structures appear normal without evidence of mass or diverticulum. There is mild cricopharyngeal achalasia. Dual and single contrast images of the esophagus demonstrate normal caliber, contour, and mucosal pattern. No evidence of stricture, mass, or ulcerations identified. Primary esophageal peristalsis was normal. There was mild disorganized esophageal tertiary peristalsis in the mid and distal esophagus. No evidence of hiatus hernia identified. Gastroesophageal reflux is seen up to the midesophagus. Dual contrast and single contrast images of the stomach demonstrated normal contour and mucosal pattern without evidence of mass, ulceration, or other abnormality. Contrast freely passed into the gastric antrum and duodenal bulb without delay. Single and air-contrast images of the duodenal bulb demonstrate no abnormality. The duodenal sweep has a normal appearance, course, and mucosal fold appearance. No malrotation. The imaged proximal jejunum has a normal fold pattern and caliber. FLUOROSCOPY TIME: 3 minutes 48 seconds Number of Spot Images: 8 Number of Cine: 12 DOSE AREA PRODUCT: 3096 uGy-m2 (microgray-meter squared) FL/FL upper GI w air IMPRESSION: 1. Mild cricopharyngeal achalasia. 2. Mildly disorganized esophageal motility. 3. Moderate gastroesophageal reflux. 4. No evidence of hiatus hernia. Normal GE junction. 5. Normal-appearing stomach. This procedure was performed by Chetan Diaz PA-C, and supervised by Dr. Rojas
== END 2023-03-13 09:10 | disposition home or self-care (01) ==
LOC: HO.XRAY 09:09
PROVIDERS: PCP Internal Medicine; Visit Provider Surgery
DX: E66.01 Morbid (severe) obesity due to excess calories (principal); K21.9 Gastro-esophageal reflux disease without esophagitis
CPT/HCPCS: 74246

== ENCOUNTER → 2023-03-13 09:10 | Outpatient (BNV) | payer OTHER, SELFPAY | PROVIDERS: PCP Internal Medicine; Visit Provider Radiology Diagnostic Radiology | DX: Z01.818 Encounter for other preprocedural examination (principal); E66.01 Morbid (severe) obesity due to excess calories | CPT/HCPCS: 74246 ==

== ENCOUNTER 2023-03-15 08:05 | Inpatient (IN) | payer OTHER, SELFPAY ==
[2023-03-12 09:39] VITALS: BMI 38.1
--- NOTE | 2023-03-14 08:36 | HO.ANESPROP2 ---
Documented by User: Shira Christine NP 03/14/23 08:38 HPI - Anesthesia Eval Consult details Narrative: 33yo F for Gastrectomy Sleeve-EGD, possible diaphragmatic hernia, possible ventral hernia, possible open Anesthesia Pre-Procedure Meds Is the patient on any of the following meds?: Semaglutide (Ozempic) PMFSH Active Problems Active Problems: All Active Problems (Updated 03/12/23 @ 09:39 by Lois Hall RN) Pre-op evaluation (Acute) Anxiety disorder, unspecified (Acute) Obesity (Acute) BMI 39.0-39.9,adult (Acute) Zinc deficiency (Acute) Vitamin B1 deficiency (Acute) Vitamin A deficiency (Acute) Vitamin D deficiency (Acute) Hyperlipidemia (Acute) Constipation (Acute) Asthma (Acute) Anxiety (Acute) DJD (degenerative joint disease) (Acute) GERD (gastroesophageal reflux disease) (Acute) Non-insulin dependent type 2 diabetes mellitus (Acute) Morbid obesity (Acute) Past Medical History Medical History Hyperlipidemia Constipation Asthma Anxiety DJD (degenerative joint disease) GERD (gastroesophageal reflux disease) Non-insulin dependent type 2 diabetes mellitus Morbid obesity Family History Family History Mother Ovarian cancer Breast cancer Family history of problems with anesthesia: No Surgical History Surgical History History of esophagogastroduodenoscopy (EGD) History of removal of skin mole (~06/2007) Hx of LASIK (~12/2022) History of Problems with Anesthesia: No Social History Social History Household Members Other:: minor son Are you a primary career placement specialist to a significant other at home: Yes Do you presently have visiting nurse or other home services: No Alcohol intake: never Patient Tobacco Use Status: Never used Tobacco Use of substances other than those prescribed or required for medical reasons: No Have you been hit, kicked, punched, or otherwise hurt by someone within the past year? If so, by whom?: No Are you DNR?: No Advance Directives Information Provided: Yes (as above noted) Advance Directives on File: No Recently lost weight without trying: No Eating poorly because of decreased appetite: No Nutrition Risks: No Nutritional Risk Patient : No FDLMP: N/A-on Depo-Provera : No Poor oral hygiene: No Meds Allergies Allergy/AdvReac Type Severity Reaction Status Date / Time No Known Allergies Allergy Verified 03/15/23 08:36 Home Medications Medication Instructions Recorded Confirmed Last Taken Type esomeprazole magnesium 40 mg 40 mg PO DAILY 01/12/23 03/12/23 Unknown History capsule,delayed release lactulose 10 gram/15 mL oral 30 ml PO DAILY 01/12/23 03/12/23 Unknown History solution lorazepam 0.5 mg tablet 0.5 mg PO BID PRN Anxiety 01/12/23 03/12/23 Unknown History medroxyprogesterone 104 mg/0.65 mL 104 mg subcut Q3M 01/12/23 03/12/23 Unknown History subcutaneous syringe (Depo-SubQ provera 104) omega 3-lfu-eja-fish oil 1,000 mg 1 cap PO DAILY 01/12/23 03/12/23 Unknown History (120 mg-180 mg) capsule (Fish Oil) polyethylene glycol 3350 17 17 g PO DAILY 01/12/23 02/26/23 Unknown History gram/dose oral powder (Miralax) semaglutide 1 mg/dose (4 mg/3 mL) 4 mg subcut QWEEK 01/12/23 03/12/23 02/14/23 History subcutaneous pen injector (Ozempic) fluticasone propionate 110 1 puff inhalation Q12H 01/16/23 03/12/23 Unknown History mcg/actuation HFA aerosol inhaler (Flovent HFA) Exam Height,Weight and Vital Signs: Height 5 ft Weight 88.451 kg Pertinent Lab Results Pertinent Lab Results: Laboratory Tests 03/10/23 08:43 Blood Type O Positive Antibody Screen NEGATIVE Laboratory Tests 03/10/23 08:52 WBC 7.5 Hgb 12.2 Hct 37.1 Plt Count 283 Sodium 140 Potassium 4.4 Chloride 113 H Carbon Dioxide 21 L BUN 10 Creatinine 0.80 Assessment and Plan Assessment Anesthesia Assessment: Chart Reviewed Final Anesthetic Review Family History of Problems with Anesthesia: No History of Problems with Anesthesia: No Documented by User: Reagan Wen MD 03/15/23 10:24 HPI - Anesthesia Eval Anesthesia Pre-Procedure Meds If Yes to any meds - educate patient: Pt education - increased risk of aspiration and Pt education - possibility of cancelled proc at provider's discretion PMFSH Past Medical History Medical History Hyperlipidemia Constipation Asthma Anxiety DJD (degenerative joint disease) GERD (gastroesophageal reflux disease) Non-insulin dependent type 2 diabetes mellitus Morbid obesity Family History Family History Mother Ovarian cancer Breast cancer Surgical History Surgical History History of esophagogastroduodenoscopy (EGD) History of removal of skin mole (~06/2007) Hx of LASIK (~12/2022) Social History Social History Household Members Other:: minor son Are you a primary career placement specialist to a significant other at home: Yes Do you presently have visiting nurse or other home services: No Alcohol intake: never Patient Tobacco Use Status: Never used Tobacco Use of substances other than those prescribed or required for medical reasons: No Have you been hit, kicked, punched, or otherwise hurt by someone within the past year? If so, by whom?: No Are you DNR?: No Advance Directives Information Provided: Yes (as above noted) Advance Directives on File: No Recently lost weight without trying: No Eating poorly because of decreased appetite: No Nutrition Risks: No Nutritional Risk Patient : No FDLMP: N/A-on Depo-Provera : No Poor oral hygiene: No Meds Allergies Allergy/AdvReac Type Severity Reaction Status Date / Time No Known Allergies Allergy Verified 03/15/23 08:36 Home Medications Medication Instructions Recorded Confirmed Last Taken Type esomeprazole magnesium 40 mg 40 mg PO DAILY 01/12/23 03/12/23 Unknown History capsule,delayed release lactulose 10 gram/15 mL oral 30 ml PO DAILY 01/12/23 03/12/23 Unknown History solution lorazepam 0.5 mg tablet 0.5 mg PO BID PRN Anxiety 01/12/23 03/12/23 Unknown History medroxyprogesterone 104 mg/0.65 mL 104 mg subcut Q3M 01/12/23 03/12/23 Unknown History subcutaneous syringe (Depo-SubQ provera 104) omega 4-gso-ied-fish oil 1,000 mg 1 cap PO DAILY 01/12/23 03/12/23 Unknown History (120 mg-180 mg) capsule (Fish Oil) polyethylene glycol 3350 17 17 g PO DAILY 01/12/23 02/26/23 Unknown History gram/dose oral powder (Miralax) semaglutide 1 mg/dose (4 mg/3 mL) 4 mg subcut QWEEK 01/12/23 03/12/23 02/14/23 History subcutaneous pen injector (Ozempic) fluticasone propionate 110 1 puff inhalation Q12H 01/16/23 03/12/23 Unknown History mcg/actuation HFA aerosol inhaler (Flovent HFA) Exam Airway Mallampati Class: II TM Dist: >3cm Neck ROM: Full Loose/Missing/Broken Teeth: Yes Heart: [id number]+[id number] Lungs: cta b/l Assessment and Plan Final Anesthetic Review NPO: Yes ASA Class: III Final Preanesthetic Review: No Changes in Pt Med Stat, Meds/Allgs Chart Reviewed, Consent Obtained/Reviewed and Anes Risks/Benef Reviewed Patient Risk: Intermediate Procedure Risk: Intermediate Assessment/Block/Sedation in SS: Assess/Block/Sedation-SS Anesthetic Plan Anesthetic Plan: GA, Regional Block and Agree w/ Assess. and Plan Disposition: Standard PACU
[2023-03-15] VITALS (10 sets, daily range): BP systolic 97–129; BP diastolic 54–84; PULSE 73–101; RESP 14–18; TEMP 36.6–36.8; O2SAT 98–100; BMI 38.2; BMI 38.1
[2023-03-15] MEDS: Lactated Ringers 1,000 ML 100 ML IVCONT ×3 (08:24→23:54)
[2023-03-15] MEDS: Lactated Ringers 1,000 ML 999 ML IV (08:24)
--- OUTSIDE RECORDS SUMMARY | 2023-03-15 08:24 | XMS_ITS | Continuity of Care Document ---
Author Name Unknown Organization [facility] Address [address] [place] [address]- Care Team Providers Care Gas Controller Name Role Phone Hong SPRING ([facility]), Sukhdev Chou Primary Care Ph ysician Encounter [facility] [place] Date(s): 05/13/20 - 05/20/20 [facility] [address] [place] [address]- Attending Physician: Brooke Santos MD Allergies, Adverse Reactions, Alerts Substance Reaction Severity Status Other Environmental Allergy 1 Active 1Dust, Pollen, Seasonal Immunizations Given and Recorded Vaccine Date Status Refusal Reason Varicella Virus Vaccine 01/18/18 Given Varicella Virus Vaccine 12/07/17 Given tetanus/diphtheria/pertussis, acel(Tdap) 12/07/17 Given influenza virus vaccine, inactivated 11/05/13 Give n influenza virus vaccine, inactivated 1 11/14/11 Gi onel Influenza Vaccine (oldterm) 02/15/09 Given influ virus vac, H1N1, inactive(oldterm) 02/15/09 Given Hepatitis B Vaccine (old term) 2 12/25/06 Given Human Papillomavirus Vaccine 3 08/27/06 Given Miscellaneous Vaccine 4 06/26/06 Given Tet/Diphth/Acel, Pertussis (oldterm) 5 06/26/06 Gi onel Meningococcal Conjugate Vaccine 6 06/26/06 Given 1Admin Note: fluzone @ [facility] 2Admin Note: gardasil #3 3Admin Note: GARDASIL #2 4Admin Note: GARDASIL #1 5Admin Note: TDAP 6Admin Note: menactra Medications Loestrin Fe 1.5/30 oral tablet 1 tablet, By Mouth, Daily, # 28 tablet, 11 Refills, Maintenance, 02/27/20 9:00:00 EST, [facility] #[id number], 1 tablet By Mouth Daily,x28 days, 155, cm, 02/26/20 15:38:00 EST, Height, 97.1, kg,02/26/20 15:38:00 EST, Dry Weight Start Date: 02/27/20 Stop Date: 01/28/21 Status: Ordered Problem List Condition Effective Dates Status Health Status Inform ant Anemia(Confirmed) 1 Active Anxiety(Confirmed) 2 Active Contraceptive management(Confirmed) Active LGSIL on Pap smear of cervix(Confirmed) Active Obesity(Confirmed) Active Prediabetes(Confirmed) Active Vitamin D deficiency(Confirmed) Active 1h/o iron deficiency 2sees Ronda, counselor at [facility] for mental health and recovery Vital Signs Most recent to oldest [Reference Range]: 1 Height 155.0 cm (05/13/20 4:18 PM) Weight 99.8 kg (05/13/20 4:18 PM) Body Mass Index [18.5-24.99] 41.54 *>HHI* (05/13/20 4:18 PM) Blood Pressure [90-138/55-84 mm Hg] 122/ 78mm Hg (05/13/20 4:18 PM) Blood pressure sites Arm, left (05/13/20 4:18 PM) Dry Weight 99.8 kg (05/13/20 4:18 PM) Weight Obtained Via Standing scale (05/13/20 4:18 PM) Dry Weight Obtained Via Standing scale (05/13/20 4:18 PM) Social History Social History Type Response Smoking Status Never smoker entered on: 04/02/13 Sex
--- OUTSIDE RECORDS SUMMARY | 2023-03-15 08:24 | XMS_ITS | Continuity of Care Document ---
Author Name Unknown Organization [facility] Address [address] [place] [address]- Care Team Providers Care Residential Manager Name Role Phone Hong SPRING ([facility]), Sukhdev Chou Primary Care Ph ysician Encounter [facility] [place] Date(s): 11/03/20 - 12/03/20 [facility] [address] [place] [address]- Allergies, Adverse Reactions, Alerts Substance Reaction Severity Status Other Environmental Allergy 1 Active 1Dust, Pollen, Seasonal Immunizations Given and Recorded Vaccine Date Status Refusal Reason SARS-CoV-2 (COVID-19) mRNA BNT-162b2 vac 09/20/20 Recorded SARS-CoV-2 (COVID-19) mRNA BNT-162b2 vac 08/30/20 Recorded Varicella Virus Vaccine 01/18/18 Given Varicella Virus [...] 5Admin Note: TDAP 6Admin Note: menactra Medications Depo-Provera Contraceptive 150 mg/mL intramuscular suspension 1 mL = 150 mg, Intramuscular, Once, Once every 3 months, Maintenance, # 1 mL, 3 Refills, Soft Stop,11/19/20 14:07:00 EDT, [facility][id number], 155, cm, 05/13/20 16:18:00 EDT, Height, 99.8, kg, 05/13/20 16:18:00 EDT, Dry Weight Start Date: 11/19/20 Status: Ordered Loestrin Fe 1.5/30 oral tablet 1 tablet, By Mouth, Daily, # 28 tablet, 11 Refills, Maintenance, 02/27/20 9:00:00 EST, [facility] #[id number], 1 tablet By Mouth Daily,x28 days, 155, [...] 1h/o iron deficiency 2sees Ronda, counselor at [facility] for mental health and recovery Social History Social History Type Response Smoking Status Never smoker entered on: 04/02/13 Sex
--- OUTSIDE RECORDS SUMMARY | 2023-03-15 08:24 | XMS_ITS | Continuity of Care Document ---
Author Name Unknown Organization [facility] Address [address] [place] [address]- Care Team Providers Care Christian Ministries Professor Name Role Phone Hong SPRING ([facility]), Sukhdev Chou Primary Care Ph ysician Encounter [facility] [place] Date(s): 11/19/20 - 12/19/20 [facility] [address] [place] [address]- Allergies, Adverse Reactions, Alerts Substance Reaction Severity [...] mL, 3 Refills, Soft Stop,11/19/20 14:07:00 EDT, [facility] #[id number], 155, cm, 05/13/20 16:18:00 EDT, Height, 99.8, kg, 05/13/20 16:18:00 EDT, Dry Weight Start Date: 11/19/20 Status: Ordered depo-subQ provera 104 subcutaneous suspension 0.65 mL = 104 mg, Subcutaneous Injection, Every 3 months, # 0.65 mL, 3 Refills, Maintenance, 12/09/20 12:12:00 EDT, Suspension, [facility] #[id number], Partial fill upon patient request if the prescription is for a schedule II opioid drug., 155,... Start Date: 12/09/20 Stop Date: 12/04/21 Status: Ordered Loestrin Fe 1.5/30 oral tablet 1 tablet, By Mouth, Daily, # 28 tablet, 11 Refills, Maintenance, 02/27/20 9:00:00 EST, [facility] #[id number], 1 tablet By Mouth Daily,x28 days, 155, [...] 1h/o iron deficiency 2sees Ronda, counselor at [facility] for mental health and recovery Social History Social History Type Response Smoking Status Never smoker entered on: 04/02/13 Sex
--- OUTSIDE RECORDS SUMMARY | 2023-03-15 08:24 | XMS_ITS | Continuity of Care Document ---
Author Name Unknown Organization [facility] Address [address] [place] [id number]- Care Team Providers Care Seaming Inspector Name Role Phone Terry SPRING, Jony Primary Care Physician Encounter [facility] Date(s): 03/16/22 - 04/15/22 [facility] [address] [place] [id number] Allergies, Adverse Reactions, Alerts Substance Reaction Severity [...] 5Admin Note: TDAP 6Admin Note: menactra Medications depo-subQ provera 104 subcutaneous suspension 0.65 mL = 104 mg, Subcutaneous Injection, Every 3 months, # 0.65 mL, 3 Refills, Maintenance, 08/18/21 16:53:00 EDT, [facility]ension, [id number], Partial fill upon patient request if the prescription is for a schedule II opioid drug., 155,... Start Date: 08/18/21 Stop Date: 08/13/22 Status: Ordered Problem List Condition Confirmation Course Effective Dates Status H ealth Status Informant Anemia 1 Confirmed Active Anxiety 2 Confirmed Active Contraceptive management Confirmed Active LGSIL on Pap smear of cervix Confirmed Active Obese class II Confirmed Active Obesity Confirmed Active Prediabetes Confirmed Active Vitamin D deficiency Confirmed Active 1h/o iron deficiency 2sees Ronda, counselor at [facility] for mental health and recovery Social History Social History Type Response Smoking Status Never smoker entered on: 04/02/13 Sex Patient Care team information Care Team Personnel Name: Rosalba Lee MD Position: [facility] CLINICAL NURSE SPECIALIST MD Member Role: [facility] CLINICAL NURSE SPECIALIST Physician Address: Address: [address] [place] [address] Women's Health [place] [address]- Name: Jony Stewart MD Position: [facility] Outreach Member Role: PCP Address: Address: [address] [place] [address] [address] [place] [address]- Care Team Related Persons Name: LOUDRES RAYA Address: home [address] [place] [address] Name: BANG FOWLER Address: home [address] [place] [address]
--- OUTSIDE RECORDS SUMMARY | 2023-03-15 08:24 | XMS_ITS | Continuity of Care Document ---
Author Name Unknown Organization [facility] Address [address] [place] [address]- Care Team Providers Care Bicycle Rental Clerk Name Role Phone Hong SPRING ([facility] )Sukhdev Primary Care Ph ysician Encounter [facility] Date(s): 11/05/20 - 12/09/20 [facility] [address] [place] [address]- Attending Physician: Hong SPRING ([facility] )Sukhdev Allergies, Adverse Reactions, Alerts Substance Reaction Severity [...] mL, 3 Refills, Soft Stop,11/19/20 14:07:00 EDT, [facility] #[id number], 155, cm, 05/13/20 16:18:00 EDT, Height, 99.8, kg, 05/13/20 16:18:00 EDT, Dry Weight Start Date: 11/19/20 Status: Ordered depo-subQ provera 104 subcutaneous suspension 0.65 mL = 104 mg, Subcutaneous Injection, Every 3 months, # 0.65 mL, 3 Refills, Maintenance, 12/09/20 12:12:00 EDT, Suspension, [facility] #[id number], Partial fill upon patient request if the prescription is for a schedule II opioid drug., 155,... Start Date: 12/09/20 Stop Date: 12/04/21 Status: Ordered Loestrin Fe 1.5/30 oral tablet 1 tablet, By Mouth, Daily, # 28 tablet, 11 Refills, Maintenance, 02/27/20 9:00:00 EST, [facility] #[id number], 1 tablet By Mouth Daily,x28 days, 155, [...] 1h/o iron deficiency 2sees Ronda, counselor at [facility] for mental health and recovery Social History Social History Type Response Smoking Status Never smoker entered on: 04/02/13 Sex
--- OUTSIDE RECORDS SUMMARY | 2023-03-15 08:24 | XMS_ITS | Continuity of Care Document ---
Author Name Unknown Organization [facility] Address [address] [place] [address]- Care Team Providers Care Policyholder Information Clerk Name Role Phone Hong SPRING ([facility]), Sukhdev Chou Primary Care Ph ysician En[facility] Date(s): 08/26/20 - [facility] [address] [place] [address]- Allergies, Adverse Reactions, Alerts Substance Reaction Severity [...] 28 tablet, 11 Refills, Maintenance, 02/27/20 9:00:00 [id number], 1 tablet By Mouth Daily,x28 days, 155, [...] 1h/o iron deficiency 2sees Ronda, counselor at [facility] for mental health and recovery Social History Social History Type Response Smoking Status Never smoker entered on: 04/02/13 Sex
--- OUTSIDE RECORDS SUMMARY | 2023-03-15 08:25 | XMS_ITS | Continuity of Care Document ---
Author Name Unknown Organization [facility] Address [address] [place] [address]- Care Team Providers Care Fertilizer Loader Name Role Phone Hong SPRING ([facility]), Sukhdev Chou Primary Care Ph ysician Encounter [facility] [place] Date(s): 06/28/20 - 07/28/20 [facility] [address] [place] [address]- Allergies, Adverse Reactions, Alerts Substance Reaction Severity [...] tablet, 11 Refills, Maintenance, 02/27/20 9:00:00 EST, [facility] #[id number], 1 tablet By Mouth Daily,x28 days, 155, [...] 1h/o iron deficiency 2sees Ronda, counselor at [facility] for mental health and recovery Social History Social History Type Response Smoking Status Never smoker entered on: 04/02/13 Sex
--- OUTSIDE RECORDS SUMMARY | 2023-03-15 08:25 | XMS_ITS | Continuity of Care Document ---
Author Name Unknown Organization [facility] Address [address] [place] [address]- Care Team Providers Care Mortgage Loan Closer Name Role Phone Hong SPRING ([facility]), Sukhdev Chou Primary Care Ph ysician [place] [facility]19[place]20 - 12/19/20 [facility] [address] [place] [address]- Allergies, Adverse Reactions, Alerts Substance Reaction Severity [...] mL, 3 Refills, Soft Stop,11/19/20 14:07:00 EDT, [facility] #[id number], 155, cm, 05/13/20 16:18:00 EDT, Height, 99.8, kg, 05/13/20 16:18:00 EDT, Dry Weight Start Date: 11/19/20 Status: Ordered depo-subQ provera 104 subcutaneous suspension 0.65 mL = 104 mg, Subcutaneous Injection, Every 3 months, # 0.65 mL, 3 Refills, Maintenance, 12/09/20 12:12:00 EDT, Suspension, [facility] #[id number], Partial fill upon patient request if the prescription is for a schedule II opioid drug., 155,... Start Date: 12/09/20 Stop Date: 12/04/21 Status: Ordered Loestrin Fe 1.5/30 oral tablet 1 tablet, By Mouth, Daily, # 28 tablet, 11 Refills, Maintenance, 02/27/20 9:00:00 EST, [facility] #[id number], 1 tablet By Mouth Daily,x28 days, 155, [...] 1h/o iron deficiency 2sees Ronda, counselor at [facility] for mental health and recovery Social History Social History Type Response Smoking Status Never smoker entered on: 04/02/13 Sex
--- OUTSIDE RECORDS SUMMARY | 2023-03-15 08:25 | XMS_ITS | Continuity of Care Document ---
Author Name Unknown Organization [facility] Address [address] [place] [address]- Care Team Providers Care Fur Dry Cleaner Name Role Phone Hong SPRING ([facility]), Sukhdev Chou Primary Care Ph ysician Encounter [facility] Date(s): 12/09/20 - 12/16/20 [facility] [address] [place] [address]- Attending Physician: Not on Staff, Attending MD Allergies, Adverse Reactions, Alerts Substance Reaction [...] mL, 3 Refills, Soft Stop,11/19/20 14:07:00 EDT, [facility] #[id number], 155, cm, 05/13/20 16:18:00 EDT, Height, 99.8, kg, 05/13/20 16:18:00 EDT, Dry Weight Start Date: 11/19/20 Status: Ordered depo-subQ provera 104 subcutaneous suspension 0.65 mL = 104 mg, Subcutaneous Injection, Every 3 months, # 0.65 mL, 3 Refills, Maintenance, 12/09/20 12:12:00 EDT, Suspension, [facility] #[id number], Partial fill upon patient request if the prescription is for a schedule II opioid drug., 155,... Start Date: 12/09/20 Stop Date: 12/04/21 Status: Ordered Loestrin Fe 1.5/30 oral tablet 1 tablet, By Mouth, Daily, # 28 tablet, 11 Refills, Maintenance, 02/27/20 9:00:00 EST, [facility] #[id number], 1 tablet By Mouth Daily,x28 days, 155, [...]
--- OUTSIDE RECORDS SUMMARY | 2023-03-15 08:25 | XMS_ITS | Continuity of Care Document ---
Author Name Unknown Organization [facility] Address [address] [place] [address]- Care Team Providers Care Sql Database Programmer Name Role Phone Hong SPRING ([facility]), Sukhdev Chou Primary Care Ph ysician Encounter [facility] Date(s): 09/20/20 - 10/20/20 [facility] [address] [place] [address]- Allergies, Adverse Reactions, Alerts Substance Reaction Severity [...] tablet, 11 Refills, Maintenance, 02/27/20 9:00:00 EST, [id number], 1 tablet By Mouth Daily,x28 days, 155, [...] 1h/o iron deficiency 2sees Ronda, counselor at [facility] for mental health and recovery Social History Social History Type Response Smoking Status Never smoker entered on: 04/02/13 Sex
--- OUTSIDE RECORDS SUMMARY | 2023-03-15 08:25 | XMS_ITS | Continuity of Care Document ---
Author Name Unknown Organization [facility] Address [address] [place] [address]- Care Team Providers Care Manufacturing Engineering Intern Name Role Phone Hong SPRING ([facility] [place]), Sukhdev Chou Primary Care Ph ysician Encounter [facility] [place] Date(s): 08/18/21 - 09/17/21 [facility] [address] [place], [place] [address] Attending Physician: Kandy Tony Admitting Physician: Kandy Tony Referring Physician: AdmtrKandy Allergies, Adverse Reactions, Alerts Substance Reaction Severity [...] 3 Refills, Maintenance, 08/18/21 16:53:00 EDT, Suspension, [facility] #[id number], Partial fill upon patient request if the prescription is for a schedule II opioid drug., 155,... Start Date: 08/18/21 Stop Date: 08/13/22 Status: Ordered Problem List Condition Effective Dates Status Health Status Inform ant Anemia(Confirmed) 1 Active Anxiety(Confirmed) 2 Active Contraceptive management(Confirmed) Active LGSIL on Pap smear of cervix(Confirmed) Active Obese class II(Confirmed) Active Obesity(Confirmed) Active Prediabetes(Confirmed) Active Vitamin D deficiency(Confirmed) Active 1h/o iron deficiency 2sees Ronda, counselor at [facility] for mental health and recovery Social History Social History Type Response Smoking Status Never smoker entered on: 04/02/13 Sex
--- OUTSIDE RECORDS SUMMARY | 2023-03-15 08:25 | XMS_ITS | Continuity of Care Document ---
Author Name Unknown Organization [facility] Address [address] [place] [address]- Care Team Providers Care Industrial Workers Name Role Phone Jony Stewart MD Primary Care Physician [phone] Encounter [facility] Date(s): 02/08/23 - 02/08/[address] [address]- Encounter Diagnosis Cellulitis of right leg(Final) - 02/08/23 Discharge Disposition: A-D/C Home Attending Physician: Santos Sutton MD Admitting Physician: Santos Sutton MD Referring Physician: Not on Staff, Referring MD Allergies, Adverse Reactions, Alerts Substance Reaction [...] 5Admin Note: TDAP 6Admin Note: menactra Medications cephalexin monohydrate 500 mg oral capsule 1 capsule = 500 mg, By Mouth, 4 times a day, for 7 days, # 28 capsule, 0 Refills, Acute 02/15/23 10:43:00 EST, 02/08/23 10:43:00 EST, Capsule, [facility] #[id number], Partial fill upon patient request if the prescription is for a schedule II opio... Start Date: 02/08/23 Stop Date: 02/15/23 Status: Ordered medroxyPROGESTERone 104 mg/0.65 mL subcutaneous suspension 0.65 mL = 104 mg, Subcutaneous Injection, Every 3 months, # 0.65 mL, 1 Refills, Maintenance, 11/23/22 16:44:00 EDT, Suspension, [facility] #[id number], Partial fill upon patient request if the prescription is for a schedule II opioid drug., 155,... Start Date: 11/23/22 Status: Ordered Ozempic 2 mg/1.5 mL (0.25 mg or 0.5 mg dose) subcutaneous solution = 0.25 mg, Subcutaneous Injection, Every week, rotate injection sites, # 1 each, 0 Refills, Maintenance, 02/08/23 9:18:00 EST, [facility], Partial fill upon patient request if the prescription is for aschedule II opioid drug. Start Date: 02/08/23 Status: Ordered Vitamin A Daily, 0 Refills, Maintenance, 02/08/23 9:17:00 EST, Partial fill upon patient request if the prescription is for a schedule II opioid drug. Start Date: 02/08/23 Status: Ordered Problem List Condition Confirmation Course Effective Dates Status H ealth Status Informant Anemia 1 Confirmed Active Anxiety 2 Confirmed Active Contraceptive management Confirmed Active LGSIL on Pap smear of cervix Confirmed Active Obese class II Confirmed Active Obesity Confirmed Active Prediabetes Confirmed Active Vitamin D deficiency Confirmed Active 1h/o iron deficiency 2sees Ronda, counselor at [facility] health and recovery Vital Signs Most recent to oldest [Reference Range]: 1 Height 152 cm (02/08/23 9:15 AM) Weight 92.8 kg (02/08/23 9:15 AM) Oxygen Saturation [94-100 %] 100 % (02/08/23 9:15 AM) Pulse Rate [55-90 bpm] 101 bpm *H* (02/08/23 9:15 AM) Blood Pressure [90-138/55-84 mm Hg] 138/ 94mm Hg (02/08/23 9:15 AM) Respiratory Rate [16-30 br/min] 18 br/mi n (02/08/23 9:15 AM) Temperature [96.8-100.4 DegF] 98.2 DegF (02/08/23 9:15 AM) Mode of Delivery (Oxygen) Room air (02/08/23 9:15 AM) Temperature Route Temporal (02/08/23 9:15 AM) Dry Weight 92.8 kg (02/08/23 9:15 AM) Social History Social History Type Response Smoking Status Never smoker entered on: 04/02/13 Sex Note * Marcelina Velasquez: PERFORM Event Display: Patient Education Leaflets Authored Date: [id number] Cellulitis ?? [id number] Cellulitis Cellulitis is an infection of the deep layers of skin. A break in the skin, such as a cut or scratch, can let bacteria under the skin. Cellulitis causes the affected skin to become red, swollen, warm, and sore. The reddened areas havea border you can see. An open sore may leak fluid (pus). You may have a fever, chills, and pain. Cellulitis is treated with antibiotics taken for 7 to 10 days. An open sore may be cleaned and covered with cool wet gauze. Symptoms should get better 1 to 2 days after treatment is started. Make sure to take all the antibiotics for the full number of days until they are gone. Keep taking the medicine even if your symptoms go away. If not treated, cellulitis can get into the bloodstream and lymph nodes. The infection can then spread throughout the body. This causes serious illness. Home care Follow these tips: ??? Limit the use of the part of your body with cellulitis.? If the infection is on your leg, keep your leg raised while sitting. This helps reduce swelling. ??? Take all of the antibiotic medicine exactly as directed until it is gone. Don't miss any doses, especially duringthe first 7 days. Finish taking all of the medicine even when your symptoms get better. ??? Keep the affected area clean and dry. ??? Wash your hands with soap and clean, running water before and after touching your skin. Anyone else who touches your skin should also wash his or her hands. Don't share towels. ?? Follow-up care Follow up with your healthcare provider, or as advised. If your infection doesn't go away after finishing the first antibiotic, your healthcare provider will prescribe a different one. ?? When to seek medical advice Call your healthcare provider right away if any of these occur: ??? Red areas that spread ??? Swelling or pain that gets worse ??? Fluid leaking from the skin (pus) ??? Fever higher of 100.4?? F (38.0?? C) or higher after 2 days on antibiotics ?? Last Reviewed Date: 2021 ?? [id number] [employer]. All rights reserved. This information is not intended as a substitute for professional medical care. Always follow your healthcare professional's instructions. ?? Patient Care team information Care Team Personnel Name: Rosalba Lee MD Position: [facility] AGRICULTURAL PRODUCE WASHER MD Member Role: Lifetime AGRICULTURAL PRODUCE WASHER Physician Address: Address: [address] [place] [address] Women's Health [place] [address]- Name: Jony Stewart MD Position: [facility] Physician - Primary Care Member Role: PCP Address: Address: [address] [facility] [place] [address] [place] Name: Santos Sutton MD Position: [facility] Resident Member Role: Admitting Physician Address: Address: [address] [place] [address]- [place] Name: Mallory Mclean RN Position: [facility] ED RN W/OE and Tasks Member Role: Patient Care Provider Name: Marcelina Velasquez Position: [facility] Associate Professional Member Role: Physician Design Center Consultant Address: Address: [address] [facility] [place] [address]- Care Team Related Persons Name: LOURDES RAYA Address: home [address] [place] [address] Name: BANG FOWLER Address: home [address] [place] [address]
--- OUTSIDE RECORDS SUMMARY | 2023-03-15 08:25 | XMS_ITS | Continuity of Care Document ---
Author Name Unknown Organization [facility] Address [address] [place] [address]- Care Team Providers Care Youth Development Professional Name Role Phone Hong SPRING ([facility]), Sukhdev Chou Primary Care Ph ysician Encounter [facility] Date(s): 08/18/21 - 08/25/21 [facility] [address] [place] [address]- Attending Physician: Brooke Santos MD Allergies, Adverse [...] 3 Refills, Maintenance, 08/18/21 16:53:00 EDT, Suspension, [facility] #[id number], Partial fill upon patient request if the [...] 1h/o iron deficiency 2sees Ronda, counselor at [facility] for mental health and recovery Vital Signs Most recent to oldest [Reference Range]: 1 Height 155.0 cm (08/18/21 4:00 PM) Weight 85.4 kg (08/18/21 4:00 PM) Body Mass Index [18.5-24.99] 35.55 *>HHI* (08/18/21 4:00 PM) Blood Pressure [90-138/55-84 mm Hg] 112/ 70mm Hg (08/18/21 4:00 PM) Blood pressure sites Arm, right (08/18/21 4:00 PM) Weight Obtained Via Standing scale (08/18/21 4:00 PM) Social History Social History Type Response Smoking Status Never smoker entered on: 04/02/13 Sex
--- OUTSIDE RECORDS SUMMARY | 2023-03-15 08:25 | XMS_ITS | Continuity of Care Document ---
Author Name Unknown Organization [facility] Address [address] [place] [address]- Care Team Providers Care Machine Veneer Repairer Name Role Phone Hong SPRING ([facility]), Sukhdev Chou Primary Care Ph ysician Encounter [facility] Date(s): 10/16/19 - 11/15/19 [facility] [address] [place] [address]- [facility] Attending Physician: Kandy Tony Admitting Physician: Kandy [...] tablet, By Mouth, Daily, # 28 tablet, 6 Refills, Maintenance, 09/23/19 11:49:00 EDT, [facility] #[id number], 1 tablet By Mouth Daily,x28 days, 155, cm, 10/22/18 9:57:00 EDT, Height Start Date: 09/23/19 Stop Date: 04/06/20 Status: Ordered Problem List Condition Effective Dates Status Health Status Inform ant Anemia(Confirmed) 1 Active Anxiety(Confirmed) 2 Active Contraceptive management(Confirmed) Active Menorrhagia(Confirmed) Active Normal vaginal delivery(Confirmed) 3 Active Obesity(Confirmed) Active School physical exam(Confirmed) Active Prediabetes(Confirmed) Active (Confirmed) 12/16/08 Active Vitamin D deficiency(Confirmed) Active 1h/o iron deficiency 2sees Ronda, counselor at [facility] for mental health and recovery [id number] Social History Social History Type Response Smoking Status Never smoker entered on: 04/02/13 Sex
--- OUTSIDE RECORDS SUMMARY | 2023-03-15 08:25 | XMS_ITS | Continuity of Care Document ---
Author Name Unknown Organization [facility] Address [address] [place] [address]- Care Team Providers Care Cell Manager Name Role Phone Not on Staff, PCP Primary Care Physician Unavail able Encounter [facility] [id number] Date(s): 02/09/23 - 03/11/[address] [address]- Allergies, Adverse Reactions, Alerts Substance Reaction Severity [...] 5Admin Note: TDAP 6Admin Note: menactra Medications medroxyPROGESTERone 104 mg/0.65 mL subcutaneous suspension 0.65 mL = 104 mg, Subcutaneous Injection, Every 3 months, # 0.65 mL, 1 Refills, Maintenance, 11/23/22 16:44:00 EDT, Suspension, [id number], Partial fill upon patient request if the [...] Team Personnel Name: Rosalba Lee MD Position: [facility] ELECTRICAL TROUBLESHOOTER MD Member Role: Lifetime ELECTRICAL TROUBLESHOOTER Physician Address: Address: [address] [place] [address] Women's Health Document Review Attorney - [place], [place] [address] Name: Not on Staff, PCP Position: [facility] Physician (General Medicine) Member Role: PCP Care Team Related Persons Name: LOURDES RAYA Address: home [address] [place] [address] Name: BANG FOWLER Address: home [address] [place] [address]
--- OUTSIDE RECORDS SUMMARY | 2023-03-15 08:25 | XMS_ITS | Continuity of Care Document ---
Author Name Unknown Organization [facility] Address [address] [place] [address]- Care Team Providers Care Ship'S Pilot Name Role Phone Hong SPRING ([facility]), Sukhdev Chou Primary Care Ph ysician Encounter [facility] Date(s): 11/16/21 - 12/16/21 [facility] [address] [place], [place] [address] Attending Physician: Kandy Tony Admitting Physician: AdmtrKandy Referring Physician: Admtr Ar8 Allergies, Adverse Reactions, Alerts Substance Reaction Severity [...] 3 Refills, Maintenance, 08/18/21 16:53:00 EDT, Suspension, [facility] #[id number], Partial fill upon patient request if the [...] 1h/o iron deficiency 2sees Ronda, counselor at [facility] for mental health and recovery Social History Social History Type Response Smoking Status Never smoker entered on: 04/02/13 Sex Patient Care team information Care Team Personnel Name: Rosa SPRING, Rosalba Hamilton Position: [facility] INCOME TAX ADVISOR MD Member Role: Lifetime INCOME TAX ADVISOR Physician Address: Address: [address] [facility] Women's Health [place] [address]- Name: Hong SPRING ([facility]), [facility] Chou Position: [facility] Primary Care Physician Member Role: PCP Address: Address: [address] [facility] Care, [place] [address]- Care Team Related Persons Name: LOURDES RAYA Address: home [address] [place] [address] Name: BANG FOWLER Address: home [address] [place] [address]
--- OUTSIDE RECORDS SUMMARY | 2023-03-15 08:25 | XMS_ITS | Continuity of Care Document ---
Author Name Unknown Organization [facility] Address [address] [place] [address]- Care Team Providers Care Compact Assembler Name Role Phone Hong SPRING ([facility]), Sukhdev Chou Primary Care Ph ysician Encounter [facility] Date(s): 03/01/21 - 03/08/21 [facility] [address] [place] [address]- Attending Physician: Not on Staff, Attending MD [...] mL, 3 Refills, Soft Stop,11/19/20 14:07:00 EDT, [facility] #[id number], 155, cm, 05/13/20 16:18:00 EDT, Height, 99.8, kg, 05/13/20 16:18:00 EDT, Dry Weight Start Date: 11/19/20 Status: Ordered depo-subQ provera 104 subcutaneous suspension 0.65 mL = 104 mg, Subcutaneous Injection, Every 3 months, # 0.65 mL, 3 Refills, Maintenance, 12/09/20 12:12:00 EDT, Suspension, [facility] #[id number], Partial fill upon patient request if the prescription is for a schedule II opioid drug., 155,... Start Date: 12/09/20 Stop Date: 12/04/21 Status: Ordered Loestrin Fe 1.5/30 oral tablet 1 tablet, By Mouth, Daily, # 28 tablet, 11 Refills, Maintenance, 02/27/20 9:00:00 EST, [facility] #[id number], 1 tablet By Mouth Daily,x28 days, 155, [...]
--- OUTSIDE RECORDS SUMMARY | 2023-03-15 08:25 | XMS_ITS | Continuity of Care Document ---
Author Name Unknown Organization [facility] Address [address] [place] [address]- Care Team Providers Care Technology Lab Teacher Name Role Phone Hong SPRING ([facility]), Sukhdev Chou Primary Care Ph ysician Encounter [facility] Date(s): 09/23/19 - 10/23/19 [facility] [address] [place] [address]- [facility] Attending Physician: Kandy Tony Admitting Physician: Kandy [...] tablet, 6 Refills, Maintenance, 09/23/19 11:49:00 EDT, [facility] #[id number], 1 tablet By Mouth Daily,x28 days, 155, [...] 1h/o iron deficiency 2sees Ronda, counselor at [facility] for mental health and recovery [address] Social History Social History Type Response Smoking Status Never smoker entered on: 04/02/13 Sex
--- OUTSIDE RECORDS SUMMARY | 2023-03-15 08:25 | XMS_ITS | Continuity of Care Document ---
Author Name Unknown Organization [facility] Address [address] [place] [address]- Care Team Providers Care Keno Attendant Name Role Phone Terry SPRING, Jony Primary Care Physician Encounter [facility] Date(s): 02/17/22 - 04/16/22 [facility] [address] [place] [address] Attending Physician: Viviana Hardy MD Admitting Physician: Viviana Hardy MD Allergies, Adverse Reactions, Alerts Substance Reaction [...] 3 Refills, Maintenance, 08/18/21 16:53:00 EDT, Suspension, [facility] #[id number], Partial fill upon patient request if the [...] 1h/o iron deficiency 2sees Ronda, counselor at [facility] for mental health and recovery Social History Social History Type Response Smoking Status Never smoker entered on: 04/02/13 Sex Patient Care team information Care Team Personnel Name: Rosalba Lee MD Position: [facility] COMMERCIAL DRIVER'S LICENSE DRIVER MD Member Role: Lifetime COMMERCIAL DRIVER'S LICENSE DRIVER Physician Address: Address: [address] [place] [address] [place] [address]- Name: Jony Stewart MD Position: [facility] Outreach Member Role: PCP Address: Address: [address] [place] [address] [address] [place] [address]- Care Team Related Persons Name: LORUDES RAYA Address: home [address] [place] [address] Name: BANG FOWLER Address: home [address] [place] [address]
--- OUTSIDE RECORDS SUMMARY | 2023-03-15 08:25 | XMS_ITS | Continuity of Care Document ---
Author Name Unknown Organization [facility] Address [address] [place] [address]- Care Team Providers Care Student Development Specialist Name Role Phone Terry SPRING, Jony Primary Care Physician Encounter [facility] Date(s): 03/17/22 - 04/16/22 [facility] [address] [place] [address]- Attending Physician: Kandy Tony Admitting Physician: AdmKandy harkins Referring Physician: Admtr, Ar8 Allergies, Adverse Reactions, Alerts Substance Reaction [...] 3 Refills, Maintenance, 08/18/21 16:53:00 EDT, Suspension, [facility] #[id number], Partial fill upon patient request if the [...] 1h/o iron deficiency 2sees Ronda, counselor at [facility] for mental health and recovery Social History Social History Type Response Smoking Status Never smoker entered on: 04/02/13 Sex Patient Care team information Care Team Personnel Name: Rosalba Lee MD Position: [facility] ENGINEERING OPERATOR MD Member Role: Lifetime ENGINEERING OPERATOR Physician Address: Address: [address] [place] [address] Women's Health [place]halation [place] [address]- Name: Jony Stewart MD Position: [facility] Outreach Member Role: PCP Address: Address: [address] [place] [address] [address] [place] [address]- Care Team Related Persons Name: LOURDES RAYA Address: home [address] [place] [address] Name: BANG FOWLER Address: home [address] [place] [address]
--- OUTSIDE RECORDS SUMMARY | 2023-03-15 08:25 | XMS_ITS | Continuity of Care Document ---
Author Name Unknown Organization [facility] Address [address] [place] [address]- Care Team Providers Care J2Ee Programmer Name Role Phone Hong SPRING ([facility]), Sukhdev Chou Primary Care Ph ysician [place] [facility] [place](s): 11/17/20 - 12/17/20 [facility] [address] [place] [address]- Allergies, Adverse Reactions, Alerts Substance Reaction Severity [...] mL, 3 Refills, Soft Stop,11/19/20 14:07:00 EDT, [facility] #[id number], 155, cm, 05/13/20 16:18:00 EDT, Height, 99.8, kg, 05/13/20 16:18:00 EDT, Dry Weight Start Date: 11/19/20 Status: Ordered depo-subQ provera 104 subcutaneous suspension 0.65 mL = 104 mg, Subcutaneous Injection, Every 3 months, # 0.65 mL, 3 Refills, Maintenance, 12/09/20 12:12:00 EDT, Suspension, [facility] #[id number], Partial fill upon patient request if the prescription is for a schedule II opioid drug., 155,... Start Date: 12/09/20 Stop Date: 12/04/21 Status: Ordered Loestrin Fe 1.5/30 oral tablet 1 tablet, By Mouth, Daily, # 28 tablet, 11 Refills, Maintenance, 02/27/20 9:00:00 EST, [facility] #[id number], 1 tablet By Mouth Daily,x28 days, 155, [...] iron deficiency 2sees Ronda, counselor at [facility] for mental health and recovery Social History Social History Type Response Smoking Status Never smoker entered on: 04/02/13 Sex
--- OUTSIDE RECORDS SUMMARY | 2023-03-15 08:25 | XMS_ITS | Continuity of Care Document ---
Author Name Unknown Organization [facility] Address [address] [place] [address]- Care Team Providers Care Senior Manager Name Role Phone Hong SPRING ([facility]), Sukhdev Chou Primary Care Ph ysician [facility] Date(s): 05/13/20 - 06/12/20 [facility] [address] [place], [place] [address] Attending Physician: Kandy Tony Admitting Physician: Kandy [...] tablet, 11 Refills, Maintenance, 02/27/20 9:00:00 EST, [facility] #[id number], 1 tablet By Mouth Daily,x28 days, 155, [...]
--- OUTSIDE RECORDS SUMMARY | 2023-03-15 08:25 | XMS_ITS | Continuity of Care Document ---
Author Name Unknown Organization [facility] Address [address] [place] [address]- Care Team Providers Care Fisheries Inspector Name Role Phone Hong SPRING ([facility]), Sukhdev Chou Primary Care Ph ysician Encounter [facility] Date(s): 02/26/20 - 03/04/20 [facility] [address] [place], [place] [address] Attending Physician: Brooke Santos MD Allergies, Adverse [...] tablet, 11 Refills, Maintenance, 02/27/20 9:00:00 EST, [facility] #[id number], 1 tablet By Mouth Daily,x28 days, 155, cm, 02/26/20 15:38:00 EST, Height, 97.1, kg,02/26/20 15:38:00 EST, Dry Weight Start Date: 02/27/20 Stop Date: 01/28/21 Status: Ordered Problem List Condition Effective Dates Status Health Status Inform ant Anemia(Confirmed) 1 Active Anxiety(Confirmed) 2 Active Contraceptive management(Confirmed) Active Menorrhagia(Confirmed) Active Obesity(Confirmed) Active Well woman exam with routine gynecological exam(Confirmed) Active Prediabetes(Confirmed) Active Vitamin D deficiency(Confirmed) Active 1h/o iron deficiency 2sees Ronda, counselor at [facility] for mental health and recovery Vital Signs Most recent to oldest [Reference Range]: 1 Height 155.0 cm (02/26/20 3:38 PM) Weight 97.1 kg (02/26/20 3:38 PM) Body Mass Index [18.5-24.99] 40.42 *>HHI* (02/26/20 3:38 PM) Blood Pressure [90-138/55-84 mm Hg] 112/ 74mm Hg (02/26/20 3:38 PM) Temperature [96.8-100.4 DegF] 97.5 DegF (02/26/20 3:38 PM) Blood pressure sites Arm, left (02/26/20 3:38 PM) Temperature Route Temporal (02/26/20 3:38 PM) Dry Weight 97.1 kg (02/26/20 3:38 PM) Weight Obtained Via Standing scale (02/26/20 3:38 PM) Dry Weight Obtained Via Standing scale (02/26/20 3:38 PM) Social History Social History Type Response Smoking Status Never smoker entered on: 04/02/13 Sex
[2023-03-15 08:26] LABS: UPreg QC Valid YES; Urine Pregnancy NEGATIVE (NEGATIVE)
--- OUTSIDE RECORDS SUMMARY | 2023-03-15 08:26 | XMS_ITS | Continuity of Care Document ---
Author Name Unknown Organization [facility] Address [address] [place] [address]- Care Team Providers Care Mig Welder Name Role Phone Hong SPRING ([facility]), Sukhdev Chou Primary Care Ph ysician Encounter [facility] Date(s): 12/08/21 - 01/07/22 [facility] [address] [place] [address]- Allergies, Adverse Reactions, Alerts Substance Reaction Severity [...] 3 Refills, Maintenance, 08/18/21 16:53:00 EDT, Suspension, [facility] #[id number], Partial fill upon patient request if the [...] 1h/o iron deficiency 2sees Ronda, counselor at [facility] for mental health and recovery Social History Social History Type Response Smoking Status Never smoker entered on: 04/02/13 Sex Patient Care team information Care Team Personnel Name: Rosa SPRING, Rosalba Hamilton Position: [facility] CANDLES POURER MD Member Role: Lifetime CANDLES POURER Physician Address: Address: [address] [place] [address]- Name: Hong SPRING ([facility]), Sukhdev Chou Position: [facility] Primary Care Physician Member Role: PCP Address: Address: [address] [facility] [place] [address]- Care Team Related Persons Name: LOURDES RAYA Address: home [address] [place] [address] Name: ABNG FOWLER Address: home [address] [place] [address]
--- OUTSIDE RECORDS SUMMARY | 2023-03-15 08:26 | XMS_ITS | Continuity of Care Document ---
Author Name Unknown Organization [facility] Address [address] [place] [address]- Care Team Providers Care Mule Tender Name Role Phone Hong SPRING ([facility] [place]), Sukhdev Chou Primary Care Ph ysician Encounter [facility] Date(s): 06/03/20 - 07/03/20 [facility] [address] [place] [address]- Allergies, Adverse Reactions, Alerts Substance Reaction Severity [...] tablet, 11 Refills, Maintenance, 02/27/20 9:00:00 EST, [facility] #[id number], 1 tablet By Mouth Daily,x28 days, 155, [...] deficiency 2sees Ronda, counselor at [facility] for mental health and recovery Social History Social History Type Response Smoking Status Never smoker entered on: 04/02/13 Sex
--- OUTSIDE RECORDS SUMMARY | 2023-03-15 08:26 | XMS_ITS | Continuity of Care Document ---
Author Name Unknown Organization [facility] Address [address] [place] [address]- Care Team Providers Care Vocational Rehabilitation Specialist Name Role Phone Hong SPRING ( Jon Trejo)Sukhdev Primary Care Ph ysician Encounter [facility] Date(s): 11/07/21 - 12/16/21 [facility] [address] [place] [address]- Attending Physician: Hong SPRING (Torrie Trejo)Sukhdev Allergies, Adverse Reactions, Alerts Substance Reaction Severity [...] 3 Refills, Maintenance, 08/18/21 16:53:00 EDT, Suspension, [email or web address] #[id number], Partial fill upon patient request if the [...] iron deficiency 2sees Ronda, counselor at [facility] for mental health and recovery Social History Social History Type Response Smoking Status Never smoker entered on: 04/02/13 Sex Patient Care team information Care Team Personnel Name: Rosa SPRING, Rosalba Hamilton Position: [facility] TESTER REGULATOR MD Member Role: Lifetime TESTER REGULATOR Physician Address: Address: [address] [place] [address] [facility] [place] [address]- Name: Hong SPRING ([facility]), Sukhdev Chou Position: [facility] Primary Care Physician Member Role: PCP Address: Address: [address] [place] [address] [place] [address]- Care Team Related Persons Name: LOURDES RAYA Address: home [address] [place] [address] Name: BANG FOWLER Address: home [address] [place] [address]
--- OUTSIDE RECORDS SUMMARY | 2023-03-15 08:26 | XMS_ITS | Continuity of Care Document ---
Author Name Unknown Organization [facility] Address [address] [place] [address]- Care Team Providers Care Technical Applications Specialist Name Role Phone Hong SPRING ([facility] [place]), Sukhdev Chou Primary Care Ph ysician Encounter [facility] Date(s): 11/19/20 - 12/19/20 [facility] [address] [place] [address]- Allergies, Adverse Reactions, Alerts Substance Reaction Severity [...] mL, 3 Refills, Soft Stop,11/19/20 14:07:00 EDT, [facility] #[id number], 155, cm, 05/13/20 16:18:00 EDT, Height, 99.8, kg, 05/13/20 16:18:00 EDT, Dry Weight Start Date: 11/19/20 Status: Ordered depo-subQ provera 104 subcutaneous suspension 0.65 mL = 104 mg, Subcutaneous Injection, Every 3 months, # 0.65 mL, 3 Refills, Maintenance, 12/09/20 12:12:00 EDT, Suspension, [facility] #[id number], Partial fill upon patient request if the prescription is for a schedule II opioid drug., 155,... 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
--- OUTSIDE RECORDS SUMMARY | 2023-03-15 08:26 | XMS_ITS | Continuity of Care Document ---
Author Name Unknown Organization [facility] Address [address] [place] [address]- Care Team Providers Care Primary Montessori Teacher Name Role Phone Hong SPRING ([facility] [place]), Sukhdev Chou Primary Care Ph ysician Encounter [facility] Date(s): 08/23/22 - 09/22/22 [facility] [address] [place] [address]- Allergies, Adverse Reactions, Alerts Substance Reaction Severity [...] months, # 0.65 mL, 3 Refills, Maintenance, 08/23/22 12:06:00 EDT, Suspension, [email or web address] #[id number], Partial fill upon patient request if the prescription is for a schedule II opioid drug., 155,... Start Date: 08/23/22 Stop Date: 08/18/23 Status: Ordered Problem List Condition Confirmation Course Effective Dates Status H ealth Status Informant Anemia 1 Confirmed Active Anxiety 2 Confirmed Active Contraceptive management Confirmed Active LGSIL on Pap smear of cervix Confirmed Active Obese class II Confirmed Active Obesity Confirmed Active Prediabetes Confirmed Active Vitamin D deficiency Confirmed Active 1h/o iron deficiency 2sees Ronda, counselor at [facility] for mental health and recovery Social History Social History Type Response Smoking Status Never smoker entered on: 04/02/13 Sex Patient Care team information Care Team Personnel Name: Rosa SPRING, Rosalba Hamilton Position: [facility] GROUNDMAN MD Member Role: Lifetime GROUNDMAN Physician Address: Address: [address] [place] [address]- Name: Hong SPRING ([facility]), Sukhdev Chou Position: [facility] Physician - Primary Care Member Role: PCP Address: Address: [address] [facility] [place] [address]- Care Team Related Persons Name: LOURDES RAYA Address: home [address] [place] [address] Name: BANG FOWLER Address: home [address] [place] [address]
--- OUTSIDE RECORDS SUMMARY | 2023-03-15 08:26 | XMS_ITS | Continuity of Care Document ---
Author Name Unknown Organization [facility] Address [address] [place] [address]- Care Team Providers Care Food Service Cashier Name Role Phone Hong SPRING ([facility]), Sukhdev Chou Primary Care Ph ysician Encounter [facility] Date(s): 02/22/21 - 03/24/21 [facility] [address] [place] [address]- Allergies, Adverse Reactions, Alerts Substance Reaction Severity [...] mL, 3 Refills, Soft Stop,11/19/20 14:07:00 EDT, [facility] #[id number], 155, cm, 05/13/20 16:18:00 EDT, Height, 99.8, kg, 05/13/20 16:18:00 EDT, Dry Weight Start Date: 11/19/20 Status: Ordered depo-subQ provera 104 subcutaneous suspension 0.65 mL = 104 mg, Subcutaneous Injection, Every 3 months, # 0.65 mL, 3 Refills, Maintenance, 12/09/20 12:12:00 EDT, Suspension, [facility] #[id number], Partial fill upon patient request if the prescription is for a schedule II opioid drug., 155,... 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
--- OUTSIDE RECORDS SUMMARY | 2023-03-15 08:26 | XMS_ITS | Continuity of Care Document ---
Author Name Unknown Organization [facility] Address [address] [place] [address]- Care Team Providers Care Product Development Ecologist Name Role Phone Hong SPRING ([facility]), Sukhdev Chou Primary Care Ph ysician Encounter [facility] Date(s): 11/09/20 - 12/09/20 [facility] [address] [place], [place] [address] Attending Physician: Kandy Tony Admitting Physician: AdmKandy harkins Referring Physician: Admtr [id number] Allergies, Adverse Reactions, [...] mL, 3 Refills, Soft Stop,11/19/20 14:07:00 EDT, [facility] #[id number], 155, cm, 05/13/20 16:18:00 EDT, Height, 99.8, kg, 05/13/20 16:18:00 EDT, Dry Weight Start Date: 11/19/20 Status: Ordered depo-subQ provera 104 subcutaneous suspension 0.65 mL = 104 mg, Subcutaneous Injection, Every 3 months, # 0.65 mL, 3 Refills, Maintenance, 12/09/20 12:12:00 EDT, Suspension, [facility] #[id number], Partial fill upon patient request if the prescription is for a schedule II opioid drug., 155,... Start Date: 12/09/20 Stop Date: 12/04/21 Status: Ordered Loestrin Fe 1.5/30 oral tablet 1 tablet, By Mouth, Daily, # 28 tablet, 11 Refills, Maintenance, 02/27/20 9:00:00 EST, [facility] #[id number], 1 tablet By Mouth Daily,x28 days, 155, [...] 1h/o iron deficiency 2sees Ronda, counselor at [facility] for [facility] health and recovery Social History Social History Type Response Smoking Status Never smoker entered on: 04/02/13 Sex
--- OUTSIDE RECORDS SUMMARY | 2023-03-15 08:26 | XMS_ITS | Continuity of Care Document ---
Author Name Unknown Organization [facility] Address [address] [place] [address]- Care Team Providers Care Parts Remover Name Role Phone Hong SPRING ([facility] [place] Sukhdev Chou Primary Care Ph ysician Encounter [facility] Date(s): 11/19/20 - 12/19/20 [facility] [address] [place] [address]- Allergies, Adverse Reactions, Alerts Substance Reaction Severity [...] mL, 3 Refills, Soft Stop,11/19/20 14:07:00 EDT, [facility] #[id number], 155, cm, 05/13/20 16:18:00 EDT, Height, 99.8, kg, 05/13/20 16:18:00 EDT, Dry Weight Start Date: 11/19/20 Status: Ordered depo-subQ provera 104 subcutaneous suspension 0.65 mL = 104 mg, Subcutaneous Injection, Every 3 months, # 0.65 mL, 3 Refills, Maintenance, 12/09/20 12:12:00 EDT, Suspension, [facility] #[id number], Partial fill upon patient request if the prescription is for a schedule II opioid drug., 155,... Start Date: 12/09/20 Stop Date: 12/04/21 Status: Ordered Loestrin Fe 1.5/30 oral tablet 1 tablet, By Mouth, Daily, # 28 tablet, 11 Refills, Maintenance, 02/27/20 9:00:00 EST, [facility] #[id number], 1 tablet By Mouth Daily,x28 days, 155, [...] 1h/o iron deficiency 2sees Ronda, counselor at [facility] for mental health and recovery Social History Social History Type Response Smoking Status Never smoker entered on: 04/02/13 Sex
--- OUTSIDE RECORDS SUMMARY | 2023-03-15 08:26 | XMS_ITS | Continuity of Care Document ---
Author Name Unknown Organization [facility] Address [address] [place] [address]- Care Team Providers Care Geology Technician Name Role Phone Hong SPRING ([facility]), Sukhdev Chou Primary Care Ph ysician Encounter [facility] Date(s): 02/22/21 - 03/24/21 [facility] [address] [place] [address]- Allergies, Adverse Reactions, Alerts Substance Reaction Severity [...] mL, 3 Refills, Soft Stop,11/19/20 14:07:00 EDT, [facility] #[id number], 155, cm, 05/13/20 16:18:00 EDT, Height, 99.8, kg, 05/13/20 16:18:00 EDT, Dry Weight Start Date: 11/19/20 Status: Ordered depo-subQ provera 104 subcutaneous suspension 0.65 mL = 104 mg, Subcutaneous Injection, Every 3 months, # 0.65 mL, 3 Refills, Maintenance, 12/09/20 12:12:00 EDT, Suspension, [facility] #[id number], Partial fill upon patient request if the prescription is for a schedule II opioid drug., 155,... Start Date: 12/09/20 Stop Date: 12/04/21 Status: Ordered Loestrin Fe 1.5/30 oral tablet 1 tablet, By Mouth, Daily, # 28 tablet, 11 Refills, Maintenance, 02/27/20 9:00:00 EST, [facility] #[id number], 1 tablet By Mouth Daily,x28 days, 155, [...] 1h/o iron deficiency 2sees Ronda, counselor at [facility] for mental health and recovery Social History Social History Type Response Smoking Status Never smoker entered on: 04/02/13 Sex
--- OUTSIDE RECORDS SUMMARY | 2023-03-15 08:26 | XMS_ITS | Continuity of Care Document ---
Author Name Unknown Organization [facility] Address [address] [place] [address]- Care Team Providers Care Ornamental Metal Erector Name Role Phone Hong SPRING ([facility]), Sukhdev Chou Primary Care Ph ysician Encounter [facility] Date(s): 11/09/21 - 12/09/21 [facility] [address] [place] [address]- Allergies, Adverse Reactions, Alerts Substance Reaction Severity [...] 3 Refills, Maintenance, 08/18/21 16:53:00 EDT, Suspension, [facility] #[id number], Partial fill upon patient request if the [...] iron deficiency 2sees Ronda, counselor at [facility] for mental health and recovery Social History Social History Type Response Smoking Status Never smoker entered on: 04/02/13 Sex Patient Care team information Personnel Name: Hong SPRING ([facility] [place]), Sukhdev Chou Address: Address: [address] [place] [address] Primary Care, [place], [place] [address]
--- OUTSIDE RECORDS SUMMARY | 2023-03-15 08:26 | XMS_ITS | Continuity of Care Document ---
Author Name Unknown Organization [facility] Address [address] [place] [address]- Care Team Providers Care Barber Stylist Name Role Phone Hong SPRING ([facility]), Sukhdev Chou Primary Care Ph ysician Encounter [facility] Date(s): 10/28/20 - 11/27/20 [facility] [address] [place] [address]- Allergies, Adverse Reactions, Alerts Substance Reaction Severity [...] mL, 3 Refills, Soft Stop,11/19/20 14:07:00 EDT, [facility] #[id number], 155, cm, 05/13/20 16:18:00 EDT, Height, 99.8, kg, 05/13/20 16:18:00 EDT, Dry Weight Start Date: 11/19/20 Status: Ordered Loestrin Fe 1.5/30 oral tablet 1 tablet, By Mouth, Daily, # 28 tablet, 11 Refills, Maintenance, 02/27/20 9:00:00 EST, [facility] #[id number], 1 tablet By Mouth Daily,x28 days, 155, [...] 1h/o iron deficiency 2sees Ronda, counselor at [facility] for mental health and recovery Social History Social History Type Response Smoking Status Never smoker entered on: 04/02/13 Sex
--- OUTSIDE RECORDS SUMMARY | 2023-03-15 08:26 | XMS_ITS | Patient Health Record ---
Author Name Unknown Organization [facility] Address [address] [place] [address] Care Team Providers Care Bark Spudder Name Role Phone JONY STEWART Primary Care Provider [phone] Jony Stewart Unavailable [phone] Allergies No Known Allergies Results Component Value Reference Range Notes US Duplex Venous Study RT Reviewed date:02/10/2023 01:01:14 PM Interpretation: Performing Lab: Notes/Report: Original Ordering Provider: JONY STEWART MD [facility] VITAMIN D, 25-HYDROXY Reviewed date:04/20/2022 07:57:04 PM Interpretation: Performing Lab: Notes/Report: VITAMIN D, 25-HYDROXY 11 30-80 ng/mL MICROALB/CREAT RATIO, RANDOM Reviewed date:08/16/2022 12:54:56 PM Interpretation: Performing Lab: Notes/Report: MICROALBUMIN, RANDOM 14.5 0.0-29.0 mg/L MICROALB/CRE RATIO RANDOM 12.8 0.0-30.0 mg/G CREATININE, RANDOM URINE 113 URINALYSIS Reviewed date:08/15/2022 05:55:14 PM Interpretation: Performing Lab: Notes/Report: GLUCOSE, (UA) NEGATIVE NEGATIVE mg/dL BILIRUBIN, URINE NEGATIVE NEGATIVE KETONE, URINE NEGATIVE NEGATIVE mg/dL SPECIFIC GRAVITY, URINE 1.014 1.003-1.030 BLOOD, URINE NEGATIVE NEGATIVE PH, URINE 5.5 5.0-8.0 PROTEIN, URINE NEGATIVE <= TRACE mg/dl UROBILINOGEN, URINE 0.2 0.2-1.0 E.U./dL NITRITE, URINE NEGATIVE NEGATIVE LEUKOCYTE ESTERASE, URINE MODERATE NEGATIVE RBC, URINE 9 0-4 /HPF WBC, URINE 34 0-4 /HPF RENAL AND TRANS CELLS URINE 2-5 TRANS EPI CELLS EPITH CELLS, URINE > 150 0-60 /LPF BACTERIA, URINE HEAVY NEGATIVE HYALINE CAST, URINE 5 0-3 /LPF TSH Reviewed date:04/20/2022 07:57:04 PM Interpretation: Performing Lab: Notes/Report: TSH 1.02 0.40-4.00 uIU/ml FREE T4 Reviewed date:04/20/2022 07:57:04 PM Interpretation: Performing Lab: Notes/Report: FREE T4 1.06 0.70-1.80 ng/dL LIPID PROFILE Reviewed date:04/20/2022 07:57:04 PM Interpretation: Performing Lab: Notes/Report: CHOLESTEROL 163 0-200 mg/dL TRIGLYCERIDES 128 0-150 mg/dL HDL CHOLESTEROL 45 >40 mg/dL LDL CALCULATED 93 0-100 mg/dL TC-HDLC RATIO 3.6 0-4.4 mg/dL LIPID PROFILE Reviewed date:08/15/2022 05:55:13 PM Interpretation: Performing Lab: Notes/Report: CHOLESTEROL 131 0-200 mg/dL TRIGLYCERIDES 150 0-150 mg/dL HDL CHOLESTEROL 37 >40 mg/dL LDL CALCULATED 64 0-100 mg/dL TC-HDLC RATIO 3.5 0-4.4 mg/dL GLYCOHEMOGLOBIN PROFILE Reviewed date:08/16/2022 12:54:54 PM Interpretation: Performing Lab: Notes/Report: GLYCATED HEMOGLOBIN A1C 4.6 <6.5 % ESTIMATED AVERAGE GLUCOSE 85 COMPREHENSIVE METABOLIC PANE L Reviewed date:08/15/2022 05:55:13 PM Interpretation: Performing Lab: Notes/Report: GLUCOSE 88 70-100 mg/dL Reference range applicable to fasting specimens only BUN 8 5-25 mg/dL CREAT 0.77 0.5-1.1 mg/dL GLOMERULAR FILTRATION RATE 104 >60 This eGFR result was calculated using the CKD-EPI 2020 Creatinine Equation SODIUM 142 135-145 mEq/L POTASSIUM 4.2 3.5-5.5 mmol/L CHLORIDE 112 96-110 mmol/L CO2 24 21-32 mmol/L ANION GAP 6 3-11 CALCIUM 9.0 8.5-10.5 mg/dL TOTAL PROTEIN 7.3 6.0-8.0 G/dL ALBUMIN 3.8 3.2-5.0 G/dL BILI,TOTAL 0.3 0.0-1.4 mg/dL SGOT 18 10-42 U/L SGPT 32 10-60 U/L ALK PHOS 63 42-121 U/L COMPREHENSIVE METABOLIC PANE L Reviewed date:04/20/2022 07:57:04 PM Interpretation: Performing Lab: Notes/Report: GLUCOSE 84 70-100 mg/dL Reference range applicable to fasting specimens only BUN 9 5-25 mg/dL CREAT 0.77 0.5-1.1 mg/dL GLOMERULAR FILTRATION RATE 104 >60 This eGFR result was calculated using the CKD-EPI 2020 Creatinine Equation SODIUM 140 135-145 mEq/L POTASSIUM 4.3 3.5-5.5 mmol/L CHLORIDE 110 96-110 mmol/L CO2 21 21-32 mmol/L ANION GAP 9 3-11 CALCIUM 9.8 8.5-10.5 mg/dL TOTAL PROTEIN 7.5 6.0-8.0 G/dL ALBUMIN 3.8 3.2-5.0 G/dL BILI,TOTAL 0.2 0.0-1.4 mg/dL SGOT 16 10-42 U/L SGPT 22 10-60 U/L ALK PHOS 67 42-121 U/L CBC WITH AUTO DIFF Reviewed date:08/15/2022 05:55:13 PM Interpretation: Performing Lab: Notes/Report: WBC 7.4 4.8-10.8 x10-3/uL RBC 4.3 3.8-4.8 x10-6/uL HEMOGLOBIN 12.8 11.5-16.0 g/dL HEMATOCRIT 39.0 35-47 % MCV 89.9 79-98 fL MCH 29.5 27-32 pg MCHC 32.8 32-37 g/dL RDW 12.8 11-15 % PLT COUNT 305 130-400 x10-3/uL MEAN PLATELET VOLUME 10.6 7-11 fL NRBC % AUTO 0.0 <1 % NEUT % 49.6 LYMPH % 38.4 MONO % 6.8 EOS % 5.0 BASO % 0.1 IMMATURE GRANULOCYTES % 0.1 NRBC # AUTO 0.00 <0.1 x10-3/uL ABSOLUTE NEUT 3.64 1.5-7.0 x10-3/uL LYMPH # 2.82 1-5.0 x10-3/uL MONO # 0.50 0.2-1.0 x10-3/uL EOS # 0.37 0-0.5 x10-3/uL BASO # 0.01 0-0.2 x10-3/uL IMMATURE GRANULOCYTES # 0.01 0-0.03 x10-3/uL CBC Reviewed date:04/20/2022 07:57:04 PM Interpretation: Performing Lab: Notes/Report: WBC 8.4 4.8-10.8 x10-3/uL RBC 4.4 3.8-4.8 x10-6/uL HEMOGLOBIN 13.0 11.5-16.0 g/dL HEMATOCRIT 39.7 35-47 % MCV 90.8 79-98 fL MCH 29.7 27-32 pg MCHC 32.7 32-37 g/dL RDW 12.5 11-15 % PLT COUNT 308 130-400 x10-3/uL MEAN PLATELET VOLUME 10.6 7-11 fL NRBC % AUTO 0.0 <1 % NRBC # AUTO 0.00 <0.1 x10-3/uL VITAMIN D, 25-HYDROXY Reviewed date:12/07/2022 08:12:19 AM Interpretation: Performing Lab: Notes/Report: VITAMIN D, 25-HYDROXY 19 30-80 ng/mL UA WITH CULTURE IF INDICATED Reviewed date:12/07/2022 08:12:19 AM Interpretation: Performing Lab: Notes/Report: GLUCOSE, (UA) NEGATIVE NEGATIVE mg/dL BILIRUBIN, URINE NEGATIVE NEGATIVE KETONE, URINE NEGATIVE NEGATIVE mg/dL SPECIFIC GRAVITY, URINE 1.007 1.003-1.030 BLOOD, URINE NEGATIVE NEGATIVE PH, URINE 6.5 5.0-8.0 PROTEIN, URINE NEGATIVE <= TRACE mg/dl UROBILINOGEN, URINE 0.2 0.2-1.0 E.U./dL NITRITE, URINE NEGATIVE NEGATIVE LEUKOCYTE ESTERASE, URINE MODERATE NEGATIVE RBC, URINE 3 0-4 /HPF WBC, URINE 10 0-4 /HPF EPITH CELLS, URINE 93 0-60 /LPF BACTERIA, URINE MODERATE NEGATIVE TSH Reviewed date:12/07/2022 08:12:19 AM Interpretation: Performing Lab: Notes/Report: TSH 0.81 0.40-4.00 uIU/ml LIPID PROFILE Reviewed date:12/07/2022 08:12:19 AM Interpretation: Performing Lab: Notes/Report: CHOLESTEROL 171 0-200 mg/dL TRIGLYCERIDES 158 0-150 mg/dL HDL CHOLESTEROL 41 >40 mg/dL LDL CALCULATED 99 0-100 mg/dL TC-HDLC RATIO 4.2 0-4.4 mg/dL COMPREHENSIVE METABOLIC PANE L Reviewed date:12/07/2022 08:12:19 AM Interpretation: Performing Lab: Notes/Report: GLUCOSE 84 70-100 mg/dL Reference range applicable to fasting specimens only BUN 7 5-25 mg/dL CREAT 0.74 0.5-1.1 mg/dL GLOMERULAR FILTRATION RATE 109 >60 This eGFR result was calculated using the CKD-EPI 2020 Creatinine Equation SODIUM 142 135-145 mEq/L POTASSIUM 3.9 3.5-5.5 mmol/L CHLORIDE 113 96-110 mmol/L CO2 22 21-32 mmol/L ANION GAP 7 3-11 CALCIUM 9.0 8.5-10.5 mg/dL TOTAL PROTEIN 7.2 6.0-8.0 G/dL ALBUMIN 3.5 3.2-5.0 G/dL BILI,TOTAL 0.3 0.0-1.4 mg/dL SGOT 12 10-42 U/L SGPT 21 10-60 U/L ALK PHOS 68 42-121 U/L CBC WITH AUTO DIFF Reviewed date:12/07/2022 08:12:19 AM Interpretation: Performing Lab: Notes/Report: WBC 8.6 4.8-10.8 x10-3/uL RBC 4.2 3.8-4.8 x10-6/uL HEMOGLOBIN 12.5 11.5-16.0 g/dL HEMATOCRIT 38.6 35-47 % MCV 91.0 79-98 fL MCH 29.5 27-32 pg MCHC 32.4 32-37 g/dL RDW 13.2 11-15 % PLT COUNT 349 130-400 x10-3/uL MEAN PLATELET VOLUME 10.0 7-11 fL NRBC % AUTO 0.0 <1 % NEUT % 45.1 LYMPH % 41.4 MONO % 6.8 EOS % 6.2 BASO % 0.1 IMMATURE GRANULOCYTES % 0.4 NRBC # AUTO 0.00 <0.1 x10-3/uL ABSOLUTE NEUT 3.87 1.5-7.0 x10-3/uL LYMPH # 3.54 1-5.0 x10-3/uL MONO # 0.58 0.2-1.0 x10-3/uL EOS # 0.53 0-0.5 x10-3/uL BASO # 0.01 0-0.2 x10-3/uL IMMATURE GRANULOCYTES # 0.03 0-0.03 x10-3/uL VITAMIN B12 Reviewed date:12/07/2022 08:12:19 AM Interpretation: Performing Lab: Notes/Report: VITAMIN B12 482 250-900 pg/mL URINE CULTURE & SENSITIVITY Reviewed date:08/21/2022 11:11:49 AM Interpretation: Performing Lab: Notes/Report: URINE CULTURE 50,000 - 99,000 CFU/mL URINE CULTURE NORMAL SKIN/UROGENITAL CAITLIN PRESENT. URINE CULTURE & SENSITIVITY Reviewed date:12/11/2022 07:45:50 AM Interpretation: Performing Lab: Notes/Report: URINE CULTURE 50,000 - 99,000 CFU/mL URINE CULTURE NORMAL SKIN/UROGENITAL CAITLIN PRESENT. PRIMARY CARE Reviewed date:04/03/2022 11:53:35 AM Interpretation: Performing Lab: Notes/Report: PRIMARY CARE Reviewed date:04/03/2022 11:54:50 AM Interpretation: Performing Lab: Notes/Report: PRIMARY CARE Reviewed date:04/07/2022 08:43:15 AM Interpretation: Performing Lab: Notes/Report: VITAMIN B12 Reviewed date:05/28/2022 10:37:12 PM Interpretation: Performing Lab: Notes/Report: VITAMIN B12 326 250-900 pg/mL Reason For Referral Reason Select [facility]ha for Pelv ic Floor strengthning exercise Diagnosis 1 Rectocele (N81.6) Referral Organization [facility] Referring Provider First Name JONY Referring Provider Last Name LAYA Referring Provider Speciality Internal M edicine Referred Provider Specialty Physical The rapist General Notes Mary Orona 04/11/2022 1:22:23 PM > , Mary Orona 04/13/2022 1:10:18 PM > booked 05/08/22 Referral Priority Routine Referral Organization [facility] Referring Provider First Name JONY Referring Provider Last Name LAYA Referring Provider Speciality Internal M edicine Referred Provider Specialty Allergy/Immu nology General Notes duplicate Referral Priority Routine Reason Referral for eval an d allergy testing Diagnosis 1 Hives (L50.9) Referral Organization [facility] Referring Provider First Name JONY Referring Provider Last Name LAYA Referring Provider Speciality Internal M edicine Referred Provider Specialty Allergy/Immu nology General Notes Mary Orona 09/06/2022 9:26:46 AM > Adwoa Santiago Giselle 11/07/2022 2:27:15 PM >Booked 11-12-23 945am Referral Priority Urgent Reason Evaluate Diagnosis 1 Tachyarrhythmia (R00 .0) Referral Organization [facility] Referring Provider First Name JONY Referring Provider Last Name LAYA Referring Provider Speciality Internal M edicine Referred Provider Specialty Cardiology General Notes Mary Orona 8:57:47 AM > [facility] Routine Reason Weight loss surgery Diagnosis 1 Obesity (BMI 30-39.9 ) (E66.9) Diagnosis 2 Pre-diabetes (R73.03 ) Diagnosis 3 PCOS (polycystic ova cynthia syndrome) (E28.2) Referral Organization [facility] Referring Provider First Name JONY Referring Provider Last Name LAYA Referring Provider Speciality Internal edicine Referred Provider Specialty Bariatrics Referral Priority Routine Medications Medication SIG (Take, Route, Frequency, Duration) Notes Start Date End Date Status Ozempic (0.25 or 0.5 MG/DOSE) 2 MG/3ML 0.5mg for week 1, 1mg for week 2-3,then after 2mg once a week Subcutaneous Once A Week for 30 days 12/11/2022 Active Azithromycin 250 MG TAKE 2 TABLET BY MOUTH ON THE FIRST DAY THEN 1 TABLET BY MOUTH EVERY DAY FOR 4 DAYS for 5 Active LORazepam 0.5 MG 1 tablet Orally Twice a day prn for 30 days Dispense As Written 12/14/2022 Active Plenity - 3 capsules with water 20 to 30 minutes before lunch and dinner. Drink 16 ounces of water following administration. Orally Twice a day for 30 day(s) Active Esomeprazole Magnesium 40 MG 1 capsule Orally Once a day for 90 days 01/08/2023 Active MiraLax Mix-In [place] 17 GM 1 packet mixed with 8 ounces of fluid Orally Once a day for 90 days 01/08/2023 Active Miconazole Nitrate 2 % 1 application Externally Twice a day for 14 day(s) 06/30/2022 Active medroxyPROGESTERone Acetate 104 MG/0.65ML as directed Subcutaneous Once Every 3 Months for 90 days 11/22/2022 Active prednisoLONE Acetate 1 % 1 drop into affected eye Ophthalmic Twice a day for 7 days 12/27/2021 Not-Taking Cyanocobalamin 1000 MCG/ML 1 mL Injection once a month for 90 days 05/25/2022 Active Ofloxacin 0.3 % as directed Ophthalmic every 12 hrs for 7 days 12/27/2021 Not-Taking MiraLax 17 GM/SCOOP 1 scoop mixed with 8 ounces of fluid Orally Once a day for 90 days 01/08/2023 Active Saxenda 18 MG/3ML 0.6 mg Subcutaneous daily. Increase by o.6 mg weekly to maximum 3mg de jesus for 30 days samples Active Fish Oil 1000 MG 1 capsule Orally Once a day for 30 day(s) 2,000mg Daily Active Lactulose 20 GM/30ML 30 ml Orally Once a day PRN for 30 days PRN Active DEPO-Medrol Active Clotrimazole-Betamethason e 1-0.05 % 1 application Externally Twice a day to affected area for 30 days 06/30/2022 Active Ozempic (2 MG/DOSE) 8 MG/3ML Inject 2mg Subcutaneous once a week for 30 days 12/27/2022 Active Lactulose 20 GM 15 mL as needed Orally Once a day for 30 days Active Esomeprazole Magnesium 40 MG 1 capsule Orally Twice A Day for 90 days 01/08/2023 Not-Taking Phentermine HCl 37.5 MG 1 tablet Orally Twice a day for 30 days Dispense As Written 12/14/2022 Active Ozempic (1 MG/DOSE) 4 MG/3ML INJECT 1 MG UNDER THE SKIN ONCE A WEEK DIRECTED for 28 Active Social History Tobacco Use: Social History Observation Description Date Details (start date - stop date) Never Smoker NA - NA Tobacco Use/Smoking Question Answer Notes Are you a nonsmoker Additional Findings: Tobacco Non-User Current no n-smoker Tobacco use other than smoking: Question Answer Notes Are you an other tobacco user? No Problems Problem Type SNOMED Code ICD Code Onset Dates Problem Status W/U Status Risk Notes Problem Complication due to diabetes mellitus type 2 (93723016771086) Type 2 diabetes mellitus with other specified complication (E11.69) Active confirmed Problem Gastro-esophagea l reflux disease without esophagitis (742553821) Gastro-esophagea l reflux disease without esophagitis (K21.9) Active confirmed Problem 320900582 Irritable bowel syndrome with diarrhea (K58.0) Active confirmed 12/21/21 Mccurdy d diaarhea and abdominal cramps Went to ED [place] 03/23/21 Had MRI abd and labs and told she had IBS. Given ? dicyclomine Problem Constipation (85158978) Constipation, unspecified (K59.00) Active confirmed Problem 48827006 Acute cystitis without hematuria (N30.00) Active confirmed 08/16/22 Awaiting Urine c&S Will treat with Cipro Problem 3121864 Rectocele (N81.6) Active confirmed 04/11/22 Will refer to PT for Pelvic floor strenghthening exercise Problem Asthma (649082310) Asthma (J45.909) Active confirmed Problem Vitamin D deficiency (64459715) Vitamin D deficiency (E55.9) Active confirmed 05/25/22 Level 11 She started 2000 units Taking 4 a day. Son Pavel also takes it Problem Hyperlipidemia (92948020) Hyperlipidemia (E78.5) Active confirmed Problem 16609846 Sleep disorder (G47.9) Active confirmed 11/14/22 Uses Lorazepam prn to help her sleep as thoughts races Problem 413735260 PCOS (polycystic ovarian syndrome) (E28.2) Active confirmed Problem 261622475 Obesity (BMI 30-39.9) (E66.9) Active confirmed 04/11/[address] Simpson Given Phentermine Stopped because of her GI issues. Prescribed Saxenda and then Brit Lost 40 lbs so far. 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 Problem 883828495 COVID (U07.1) Active confirmed Problem 8980813 Tachyarrhythmia (R00.0) Active confirmed 11/09/22 Symptomatic Has family hx of same Will need cardiac evaluation Vital Signs Heart Rate 105 /min 09/05/2022 Temperature 100 degrees Fahrenheit 04/11/2022 Blood pressure diastolic 92 mm Hg 09/05/2022 Oximetry 99 % 09/05/2022 Height 61 in 09/05/2022 Blood pressure systolic 128 mm Hg 09/05/2022 Weight 197 lbs 04/11/2022 BMI 37.22 kg/m2 04/11/2022 Encounters Encounter Location Date Provider Diagnosis [facility] [address] [place] [address] 04/11/2022 JONY STEWART Rectocele N81.6 and Obesity (BMI 30-39.9) E66.9 [facility] [address] [place] [address] 05/25/2022 JONY LAYA Obesity (BMI 30-39.9 ) E66.9 ; Depression determined by examination F32.9 and Vitamin D deficiency E55.9 [facility] [address] [place] [address] 06/12/2022 JONY STEWART Pre-diabetes R73.03 ; PCOS (polycystic ovarian syndrome) E28.2 and Obesity (BMI 30-39.9) E66.9 [facility] [address] [place] [address] 06/30/2022 JONY STEWART Tinea B35.9 [facility] [address] [place] [address] 08/16/2022 JONY STEWART Acute cystitis witho ut hematuria N30.00 [facility] [address] [place] [address] 09/05/2022 JONY STEWART Hives L50.9 [facility] [address] [place] [address] 10/17/2022 JONY STEWART COVID U07.1 [facility] [address] [place] [address] 11/09/2022 JONY LAYA Tachyarrhythmia R00. 0 [facility] [address] [place] [address] 11/14/2022 JONYRITO STEWART Subacute frontal sinusitis J01.10 and Sleep disorder G47.9 [facility] [address] [place] [address] 02/06/2023 JNOYRITO STEWART Leg pain, right M79. 604 and Right leg swelling M79.89 [facility] [address] [place] [address] 05/25/2022 OJNY STEWART Depression determine d by examination F32.9 and Fatigue R53.83 [facility] [address] [place] [address] 06/28/2022 JONY STEWART Fatigue R53.83 [facility] [address] [place] [address] 06/30/2022 JONY STEWART [facility] [address] [place] [address] 08/15/2022 JONY STEWART Obesity (BMI 30-39.9 ) E66.9 ; Fatigue R53.83 ; Rectal bleeding K62.5 ; Pre-diabetes R73.03 ; Vitamin D deficiency E55.9 and Dysuria R30.0 [facility] [address] [place] [address] 11/15/2022 JONY STEWART Sleep disorder G47.9 [facility] [address] [place] [address] 11/22/2022 JONY STEWART [facility] [address] [place] [address] 12/06/2022 JONY STEWART [facility] [address] [place] [address] 12/06/2022 JONY LAYA Obesity (BMI 30-39.9 ) E66.9 ; Fatigue R53.83 ; Vitamin D deficiency E55.9 ; Pre-diabetes R73.03 and Dysuria R30.0 [facility] [address] [place] [address] 12/06/2022 JONY LAYA Fatigue R53.83 [facility] [address] [place] [address] 12/07/2022 JONY LAYA [facility] [address] [place] [address] 12/11/2022 JONYRITO STEWART Type 2 diabetes mellitus with other specified complication E11.69 [facility] [address] [place] [address] 12/11/2022 JONY STEWART Type 2 diabetes mellitus with other specified complication E11.69 [facility] [address] [place] [address] 12/14/2022 JONY STEWART [facility] [address] [place] [address] 12/23/2022 JONY STEWART Type 2 diabetes mellitus with other specified complication E11.69 [facility] [address] [place] [address] 12/27/2022 JONY STEWART Type 2 diabetes mellitus with other specified complication E11.69 [facility] [address] [place] [address] 01/08/2023 JONY STEWART [facility] [address] [place] [address] 01/08/2023 JONY STEWART Gastro-esophageal reflux disease without esophagitis K21.9 ; Asthma J45.909 and Constipation, unspecified K59.00 [facility] [address] [place] [address] 01/09/2023 JONY STEWART [facility] [address] [place] [address] 02/06/2023 JONY LAYA Leg pain, right M79. 604 and Right leg swelling M79.89 Assessments Encounter Date Diagnosis (ICD Code) Assessment Notes Treat ment Notes Treatment Clinical Notes 02/06/2023 Leg pain, right (ICD-10 - M79.604) 02/06/2023 Right leg swelling (ICD-10 - M79.89) 02/06/2023 Leg pain, right (ICD-10 - M79.604) 11/14/2022 Sleep disorder (ICD-10 - G47.9) 11/14/22 Uses Lorazepam prn to help her sleep as thoughts races 11/14/2022 Subacute frontal sinusitis (ICD-10 - J01.10) 11/14/22 Will give ZPak 11/09/2022 Tachyarrhythmia (ICD-10 - R00.0) 11/09/22 Symptomatic Has family hx of same Will need cardiac evaluation 10/17/2022 COVID (ICD-10 - U07.1) 08/16/2022 Acute cystitis without hematuria (ICD-10 - N30.00) 08/16/22 Awaiting Urine c&S Will treat with Cipro 05/25/2022 Depression determine d by examination (ICD-10 - F32.9) 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 lead 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 04/11/2022 Rectocele (ICD-10 - N81.6) 04/11/22 Will refer to PT for Pelvic floor strenghthening exercise 04/11/2022 Obesity (BMI 30-39.9 ) (ICD-10 - E66.9) 04/11/[address] Simpson Given Phentermine Stopped because of her GI issues 01/08/2023 Gastro-esophageal reflux disease without esophagitis (ICD-10 - K21.9) 05/25/2022 Obesity (BMI 30-39.9 ) (ICD-10 - E66.9) 04/11/[address] Simpson Given Phentermine Stopped because of her GI issues 05/25/2022 Depression determine d by examination (ICD-10 - F32.9) 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 lead 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 06/12/2022 PCOS (polycystic ovarian syndrome) (ICD-10 - E28.2) 06/12/2022 Pre-diabetes (ICD-10 - R73.03) 06/30/2022 Tinea (ICD-10 - B35.9) 06/30/22 Will treat emperically with antifungal cream and powder 12/06/2022 Fatigue (ICD-10 - R53.83) 12/23/2022 Type 2 diabetes mellitus with other specified complication (ICD-10 - E11.69) 01/08/2023 Asthma (ICD-10 - J45.909) 12/11/2022 Type 2 diabetes mellitus with other specified complication (ICD-10 - E11.69) 12/11/2022 Type 2 diabetes mellitus with other specified complication (ICD-10 - E11.69) 11/15/2022 Sleep disorder (ICD-10 - G47.9) 11/14/22 Uses Lorazepam prn to help her sleep as thoughts races 09/05/2022 Hives (ICD-10 - L50.9) 09/05/22 Affecting her lips today after having coffee with milk from [employer]. Had rash on face and toros when she went camping and had food She avoided dairy but not gluten Will benefit from allergy testing 12/27/2022 Type 2 diabetes mellitus with other specified complication (ICD-10 - E11.69) 06/28/2022 Fatigue (ICD-10 - R53.83) 12/06/2022 Obesity (BMI 30-39.9 ) (ICD-10 - E66.9) 06/12/2022 Obesity (BMI 30-39.9 ) (ICD-10 - E66.9) 04/11/[address] Simpson Given Phentermine Stopped because of her GI issues. Prescribed Saxenda and then Brit Lost 40 lbs so far. Will send script for Wegovyi 05/25/2022 Vitamin D deficiency (ICD-10 - E55.9) 05/25/22 Level 11 She started 2000 units Taking 4 a day. Vito Zhao also takes it 08/15/2022 Obesity (BMI 30-39.9 ) (ICD-10 - E66.9) 02/06/2023 Right leg swelling (ICD-10 - M79.89) 08/15/2022 Fatigue (ICD-10 - R53.83) 01/08/2023 Constipation, unspecified (ICD-10 - K59.00) 12/06/2022 Fatigue (ICD-10 - R53.83) 05/25/2022 Fatigue (ICD-10 - R53.83) 08/15/2022 Rectal bleeding (ICD-10 - K62.5) 12/06/2022 Vitamin D deficiency (ICD-10 - E55.9) 12/06/2022 Pre-diabetes (ICD-10 - R73.03) 08/15/2022 Pre-diabetes (ICD-10 - R73.03) 08/15/2022 Vitamin D deficiency (ICD-10 - E55.9) 12/06/2022 Dysuria (ICD-10 - R30.0) 08/15/2022 Dysuria (ICD-10 - R30.0) Plan Of Treatment Pending Test Test Name Order Date Vitamin B12 and Folate 05/25/2022 TSH 12/06/2022 TSH+Free T4 04/11/2022 Lipid Panel 04/11/2022 Chem-Comprehensive 04/11/2022 VITAMIN D, 25-HYDROXY 12/06/2022 VITAMIN D, 25-HYDROXY 04/11/2022 us right lower extremity 02/06/2023 Insurance Providers Payer Name Payer Address Payer Phone Subscriber Number Group Number Insured Name Patient Relationship to Insured Coverage Start Date Coverage End Date [facility] [address] [place] [address] [id number] Mary Pang Self - patient is the insured [employer] [place] [employer] [address] [place] [address] [id number] Mary Pang Self - patient is the insured Medications Administered Medication Instructions Date of Administration Dosage Notes B-12 10/26/2022 1.0 mL Patient tolera christine well. -SS- B-12 12/04/2022 Patient tolera christine well. -SS- Medical (General) History Medical History History ICD Code No childhood exanthem Covid 19 infection Oct 2021 Fever and fatigue Lasted 5 days Everybody in house got it [place] 16 yr Mele[place] 13 yr, mother and stepfather Dimas kaplan got it Only son didnt get it. Had Covid Vaccine and 2 boosters Childhood Obesity 180 lbs in High School Gained weight after having son Lost weight 45 lbs Weighs 183. Sees Dr Tran Uses Phentermine 25 mg for past 1 year Hemorrhoids Had rectal bleed in 2009 Type 2 diabetes mellitus with other spec ified complication E11.69 Surgical History Surgery Date(Month/Year) Dermatologic surgery to al ve moles from left foot and left shoulder at age 14
--- OUTSIDE RECORDS SUMMARY | 2023-03-15 08:26 | XMS_ITS | Continuity of Care Document ---
Author Name Unknown Organization [facility] Address [address] [place] [address]- Care Team Providers Care Office Machines Teacher Name Role Phone Hong SPRING ([facility]), Sukhdev Chou Primary Care Ph ysician Encounter [facility] Date(s): 11/07/21 - 12/07/21 [facility] [address] [place] [address]- Allergies, Adverse Reactions, Alerts Substance Reaction Severity [...] 3 Refills, Maintenance, 08/18/21 16:53:00 EDT, Suspension, [facility] #[id number], Partial fill upon patient request if the [...] 1h/o iron deficiency 2sees Ronda, counselor at [facility] for [facility] and recovery Social History Social History Type Response Smoking Status Never smoker entered on: 04/02/13 Sex Patient Care team information Personnel Name: Hong SPRING ([facility] [place]), Sukhdev Chou Address: Address: [address] [place] [address] Primary Care, [place], [place] [address]
--- OUTSIDE RECORDS SUMMARY | 2023-03-15 08:26 | XMS_ITS | Continuity of Care Document ---
Author Name Unknown Organization [facility] Address [address] [place] [address]- Care Team Providers Care Classification And Treatment Director Name Role Phone Hong SPRING ([facility] [place]), Sukhdev Chou Primary Care Ph ysician [place] [facility] [place]/23/19 - 09/30/19 [facility] [address] [place] [address]- [facility] Attending Physician: Rosalba Lee MD Allergies, Adverse Reactions, Alerts Substance Reaction [...] tablet, 6 Refills, Maintenance, 09/23/19 11:49:00 EDT, [id number], 1 tablet By Mouth Daily,x28 days, 155, [...] 2sees Ronda, counselor at [facility] for mental health and recovery [id number] Social History Social History Type Response Smoking Status Never smoker entered on: 04/02/13 Sex
--- OUTSIDE RECORDS SUMMARY | 2023-03-15 08:26 | XMS_ITS | Continuity of Care Document ---
Author Name Unknown Organization [facility] Address Unknown Care Team Providers Care Host Coordinator Name Role Phone Hong SPRING ([facility]), Sukhdev Chou Primary Care Ph ysician Encounter [facility] Date(s): 11/17/20 - 12/17/20 [facility] Allergies, Adverse Reactions, Alerts Substance Reaction Severity [...] mL, 3 Refills, Soft Stop,11/19/20 14:07:00 EDT, [facility] #[id number], 155, cm, 05/13/20 16:18:00 EDT, Height, 99.8, kg, 05/13/20 16:18:00 EDT, Dry Weight Start Date: 11/19/20 Status: Ordered depo-subQ provera 104 subcutaneous suspension 0.65 mL = 104 mg, Subcutaneous Injection, Every 3 months, # 0.65 mL, 3 Refills, Maintenance, 12/09/20 12:12:00 EDT, Suspension, [facility] #[id number], Partial fill upon patient request if the prescription is for a schedule II opioid drug., 155,... Start Date: 12/09/20 Stop Date: 12/04/21 Status: Ordered Loestrin Fe 1.5/30 oral tablet 1 tablet, By Mouth, Daily, # 28 tablet, 11 Refills, Maintenance, 02/27/20 9:00:00 EST, [facility] #[id number], 1 tablet By Mouth Daily,x28 days, 155, [...] 2sees Ronda, counselor at [facility] for mental health and recovery Social History Social History Type Response Smoking Status Never smoker entered on: 04/02/13 Sex
--- OUTSIDE RECORDS SUMMARY | 2023-03-15 08:26 | XMS_ITS | Continuity of Care Document ---
Author Name Unknown Organization [facility] Address [address] [place] [address]- Care Team Providers Care Police Pilot Name Role Phone Hong SPRING ([facility]), Sukhdev Chou Primary Care Ph ysician Encounter [facility] Date(s): 11/02/20 - 12/02/20 [facility] [address] [place] [address]- Allergies, Adverse Reactions, Alerts Substance Reaction Severity [...] mL, 3 Refills, Soft Stop,11/19/20 14:07:00 EDT, [facility] #[id number], 155, cm, 05/13/20 16:18:00 EDT, Height, 99.8, kg, 05/13/20 16:18:00 EDT, Dry Weight Start Date: 11/19/20 Status: Ordered Loestrin Fe 1.5/30 oral tablet 1 tablet, By Mouth, Daily, # 28 tablet, 11 Refills, Maintenance, 02/27/20 9:00:00 EST, [facility] #[id number], 1 tablet By Mouth Daily,x28 days, 155, [...] 1h/o iron deficiency 2sees Ronda, counselor at [facility] for mental health and recovery Social History Social History Type Response Smoking Status Never smoker entered on: 04/02/13 Sex
--- OUTSIDE RECORDS SUMMARY | 2023-03-15 08:26 | XMS_ITS | Continuity of Care Document ---
Author Name Unknown Organization [facility] Address [address] [place] [address]- Care Team Providers Care Audio Technician Name Role Phone Hong SPRING ([facility]), Sukhdev Chou Primary Care Ph ysician Encounter [facility] Date(s): 05/29/22 - 06/28/22 [facility] [address] [place] [address]- Allergies, Adverse Reactions, Alerts Substance Reaction Severity [...] 3 Refills, Maintenance, 08/18/21 16:53:00 EDT, Suspension, [facility] #[id number], Partial fill upon patient request if the [...] 1h/o iron deficiency 2sees Ronda, counselor at [facility] for mental health and recovery Social History Social History Type Response Smoking Status Never smoker entered on: 04/02/13 Sex Patient Care team information Care Team Personnel Name: Rosa SPRING, Rosalba Hamilton Position: [facility] BODY CARE MANAGER MD Member Role: [employer] BODY CARE MANAGER Physician Address: Address: [address] [place] [address]- Name: Hong SPRING ([facility]), Sukhdev Chou Position: [facility] Physician - Primary Care Member Role: PCP Address: Address: [address] [facility] [place] [address]- Care Team Related Persons Name: LOURDES RAYA Address: home [address] [place] [address] Name: BANG FOWLER Address: home [address] [place] [address]
--- NOTE | 2023-03-15 08:28 | PHA.MEDREC ---
Pharmacy Consult ? Medication Reconciliation Pharmacy has completed the medication reconciliation. Reviewed med rec done by nursing
[2023-03-15 08:36] LABS: Glucose, Whole Blood 92 mg/dL (60-115)
[2023-03-15] MEDS: Aprepitant 32 MG/4.4 ML VIAL IVPUSH (08:40)
--- NOTE | 2023-03-15 08:52 | PC.NURSE ---
report given to bernard osborn rn at this time. aware to ask about tylenol order and patient to void prior to hanging second bag of lr.
--- NOTE | 2023-03-15 10:28 | MHC.SHP ---
Pre-Procedural Eval Section A - 24 Hr Update-Section A only Date of Service: 03/15/23 The patient is an INPATIENT: Yes The patient has been examined within 24 hours of the surgical procedure. The History & Physical has been completed within 30 days and I have reviewed it.: Yes Section B - Complete if H&P > 30 days Chief Complaint: Obesity Relevant Family History (Specify if Yes): No Relevant Social History: None Present Medications: None Medical History: No relevant PMH History of Previous Operations: No relevant previous surgery Allergies: Allergies Allergy/AdvReac Type Severity Reaction Status Date / Time No Known Allergies Allergy Verified 03/15/23 08:36 Review of Systems Sugical H&P ROS: Negative: Constitution, Cardiovascular, Respiratory, Neurological, Psychiatric, Hem-Onc, Allergic/Immunologic, Gastrointestinal, Genitourinary, Musculoskeletal, Integumentary, Endocrine and Eyes/Ears/Nose/Throat Exam Surgical H&P Exam: Normal: HEENT, Normal: Heart, Normal: Lungs, Normal: Extremities, Normal: Abdomen, Normal: Skin and Normal: Neurological Plan Diagnosis/Plan: Unchanged I have reviewed the history and physical and performed a pertinent physical examination on my patient. No changes have occurred unless specified. Time Spent With Patient Time: Total time managing care of this patient today ____ minutes.
--- NOTE | 2023-03-15 10:28 | PM.OP ---
Brief Operative Note Date of Service: 03/15/23 Pre-op diagnosis: Severe obesity with comorbidities (see below) Post-op diagnosis: same Procedure: INITIAL PATIENT BMI ON PRESENTATION AT OUR OFFICE: 40.2 kg/m2 LAST BMI BEFORE SURGERY: 37.6 kg/m2 COMORBIDITIES: asthma, GERD, anxiety, hyperlipidemia, non-insulin dependent diabetes, back pain ?The patient presented to the Weight Management Program with significant obesity that was negatively impacting the patient's comorbidities as listed above.? The program is a phased program with a special focus on preoperative medical weight management to promote substantial weight loss and prepare the patients for the second phase of the program: bariatric surgery. The patient participated in an intensive weekly lifestyle ?intervention and exercise program during which the patient ?has lost between the initial office visit and the last preoperative visit 14.8lbs, or 7.18% of initial actual body weight. It was deemed appropriate for the patient to now have bariatric surgery. In light of the current Covid-19 pandemic and the well documented strong association of obesity and increased risk of worse outcomes if infected with Covid-19 (REFERENCES:https://pubmed.ncbi.nlm.nih.gov/03115971/,?https://pubmed.ncbi.nlm.nih.gov/83140799/), any delay in undergoing bariatric surgery may lead to the patient's worsening health condition and increased?risk of more severe Covid-19 disease if infected. In addition a recent?study from [facility] published in [facility] on 01/31/2021 ([email or web address]) found that, among patients with obesity, substantial weight loss achieved with surgery was associated with improved outcomes of COVID-19 infection. The findings suggest that obesity can be a modifiable risk factor for the severity of COVID-19 infection. In addition, the patient met the BMI-criteria for bariatric surgery based on the BMI on initial presentation. The patient should not be penalized for achieving such weight loss because ?it is not sustainable long-term without surgical intervention and it was achieved in preparation for bariatric surgery ?under my direction and based on my published research ([email or web address]).pdf and?https://www.soard.org/article/K7196-6150(71)85530-X/pdf) ?that a 10% preoperative weight loss improves long-term weight loss after surgery and reduces perioperative complications.? Insurance carriers such as [facility] have endorsed my recommendations ?and have included in their policies criteria to include a 10% preoperative weight loss requirement. PROCEDURE: Esophago-gastroscopy,, laparoscopic sleeve gastrectomy and laparoscopic gastropexy INDICATIONS: This is a 33 year-old female who was electively scheduled for laparoscopic, possibly open sleeve gastrectomy. The risks and complications of the procedure were discussed with the patient in advance, particularly the possibility of ; pulmonary embolism; staple line leak; bleeding; GERD; cardiac, pulmonary, or renal complications; as well as long-term problems such as insufficient weight loss, vitamin deficiency, strictures, or ulcers. The patient understood all the risks, and was in agreement to proceed with surgery. DESCRIPTION OF PROCEDURE: After informed consent was obtained from the patient, the patient was given preoperative antibiotics, and was transferred to the operating room. After successful induction of general anesthesia, pneumatic compression devices were placed on both lower extremities. An upper endoscopy was performed next. The oropharynx and esophagus appeared to be within normal limits. There was no diaphragmatic hernia present consistent with the findings of the preoperative upper GI. The stomach was entered. Then after all fluid and air were suctioned and the stomach was fully decompressed, the scope was withdrawn and secured in the mid esophagus. The patient was then prepped and draped in the usual sterile manner, and abdominal access was established at the right upper quadrant with the Mark technique. A 12 mm blunt port was inserted, and the abdomen was insufflated with CO2 to a pressure of 15 mmHg. Under direct visualization, additional ports were placed, specifically two 5 mm Versi-step ports to the left upper quadrant, and a 5 mm Versi-Step port to the right upper quadrant. 1% lidocaine plain was used to infiltrate all port sites as well as all fascia defects. Using the EndoClose suture passer device, I placed a #1 Polysorb tie across the falciform ligament in order to retract it up against the abdominal wall and prevent injury of the ligament with our instruments during the procedure. Following that, the patient was placed in a steep reverse Trendelenburg position. An additional 5 mm port was placed to the right flank for the Mediflex retractor that was used to retract the left lobe of the liver. The gastro-esophageal fat pad was opened with the ultrasonic device (Thunderbeat, Olympus) and the anterior esophagus and hiatus were exposed. The angle of His was opened with the ultrasonic device the fundus of the stomach from any diaphragmatic and splenic attachments. I then opened the gastrocolic ligament between the transverse colon and the greater curvature of the stomach with the ultrasonic device to enter the lesser sac and facilitate the ligation of the short gastric vessels. I started at a mid-point along the greater curvature and using the Thunderbeat, all short gastric vessels were divided all the way to the angle of His until the left mateus was completely dissected at its entirety. I then divided the gastro-colic ligament distally to a distance of about 3-4 cm proximal to the pylorus. The stomach was then divided transversely with two Endo SURY-45 purple and four SURY-60 articulating purple loads using the [employer] stapler and loads. Every effort was made that the gastric sleeve had a tubular shape and an even caliber throughout. Once the sleeve resection was completed, the staple line of the gastric sleeve was reinforced with Hemoclips. The resected stomach was retrieved without difficulty from the Mark port. A gastropexy was then performed in order to prevent postoperative GERD and partial gastric volvulus. Several interrupted 2.0 Surgidac sutures were placed between the sleeve's staple line and the previously divided greater omentum and gastro-colic ligament using the Endo-Stitch device. ?An upper endoscopy was performed. There was no narrowing at the GE junction. The scope was easily advanced all the way to the pylorus which was clearly visualized. There was no narrowing anywhere and the sleeve's caliber was even throughout. The sleeve's staple line was inspected and there was no evidence of ischemia, bleeding or dehiscence. At that point the gastroscope was withdrawn from the patient?s mouth while we were decompressing the bowel and the stomach from any remaining air. I looked into the lesser sac to see how the sleeve was situating and it was situating well. There was no bleeding from the staple line, spleen, or short gastric vessels. The Mediflex retractor was removed, and the undersurface of the liver was inspected and there was no bleeding. The patient was placed in supine position. I closed the fascial defect of the 12 mm port site with a figure of eight #1 Polysorb suture. Then 30cc Ropivacaine plain with 10 mg of Dexamethasone were used to infiltrate the fascial closure as well as all skin incisions. At this point, the abdomen was deflated, all ports were removed under direct vision, and no bleeding was noted from any of the port sites. The skin incisions were irrigated with saline and were closed with 4-0 absorbable monofilament sutures. Steri-Strips and OpSites were used to cover all incisions. The patient was extubated and was transferred in stable condition to the recovery room for further care. I was present and performed all cornelius parts of the procedure. Mr. Irby was the store administrative assistant. There were no residents to assist with this case. Juan Gee MD, PhD, FACS Surgeon: Raheel Gee MD Anesthesia: GETA, local and other (TAP block) Was an Window Dresser used for this Procedure?: No Window Dresser: Carlos Irby Estimated blood loss (mL): 10 IV fluids (mL): 2,500 Urine output (mL): 0 (No Pollock to record output) Pathology: other (Stomach) Condition: stable Disposition: PACU
--- NOTE | 2023-03-15 10:31 | P.PNGS_ITS ---
Subjective Subjective Date of Service: 03/15/23 Interval history: Feels well. Mild incisional pain. She is tolerating phase 1 bariatric diet Physical Exam 2 Vital Signs: Vital Signs: Last Vital Signs Temp 97.9 F 03/15/23 08:36 Pulse 101 H 03/15/23 08:36 Resp 18 03/15/23 08:36 BP 120/78 03/15/23 08:36 Pulse Ox 99 03/15/23 08:36 O2 Del Method Room Air 03/15/23 08:36 BMI result Body Mass Index 38.2 GI: Inspection: Yes normal to inspection, Yes incision (clean, dry and intact) and Yes obesity Palpation (GI): Soft to palpation Extrem: Right lower extremity: normal to inspection (no calf tenderness) L eft lower extremity: normal to inspection (no calf tenderness) Objective Data Active Medications Albuterol Sulfate (Albuterol Sulfate (0.083%) 2.5 Mg/3 Ml Vial.Neb) 2.5 mg INHALE ONCE PRN PRN Reason: Shortness of Breath/Wheezing Albuterol Sulfate (Albuterol Sulfate (0.083%) 2.5 Mg/3 Ml Vial.Neb) 2.5 mg INHALE ONCE PRN PRN Reason: Wheezing Fentanyl (Fentanyl Citrate/Pf 100 Mcg/2 Ml Vial) 50 mcg IVPUSH Q5M PRN; Protocol PRN Reason: Pain, Moderate(Pain Scale 4-6) Hydromorphone HCl (Hydromorphone Hcl 0.5 Mg/0.5 Ml Syringe) 0.5 mg IVPUSH Q5M PRN; Protocol PRN Reason: Pain, Severe (Pain Scale 7-10) Lactated Ringer's (Lr) 1,000 mls @ 100 mls/hr IVCONT .Q10H LAMONT Last Admin: 03/15/23 08:24 Dose: 100 mls/hr Documented By: TRINY Ondansetron HCl (Ondansetron Hcl 4 Mg/2 Ml Vial) 4 mg IVPUSH ONCE PRN PRN Reason: Nausea and Vomiting Labs 03/15/23 13:42 03/15/23 13:42 Labs: Laboratory Results - last 24 hr 03/15/23 03/15/23 08:00 08:31 POC Glucose 92 Urine Test NEGATIVE Procedures Date of Service Date of Service: 03/15/23 Progress Note: A&P Assessment and plan (1) Obesity: Status: Acute Assessment and Plan: s/p laparoscopic sleeve gastrectomy and gastropexy Doing well Will check am labs and if OK the patient will be discharged home (2) BMI 37.0-37.9, adult: Status: Acute (3) Asthma: Status: Acute (4) GERD (gastroesophageal reflux disease): Status: Acute (5) DJD (degenerative joint disease): Status: Acute (6) Anxiety: Status: Acute (7) Non-insulin dependent type 2 diabetes mellitus: Status: Acute (8) S/P laparoscopic sleeve gastrectomy: Status: Acute Time Spent With Patient Time: Total time managing care of this patient today ____ minutes. Quality Stroke Does the patient have a stroke diagnosis?: No VTE Prior VTE?: No VTE Risk Level:: Surgical - moderate VTE Device Contraindication: N/A - Device Ordered VTE Drug Contraindication: Treatment Not Indicated
--- NOTE | 2023-03-15 13:18 | P.DS_ITS ---
DS: Providers Provider Date of Service: 03/16/23 Date of admission: 03/15/23 08:05 Primary care physician: Jony Stewart MD DS: Diagnosis Discharge Diagnosis (1) Obesity: Status: Acute (2) BMI 37.0-37.9, adult: Status: Acute (3) Asthma: Status: Acute (4) GERD (gastroesophageal reflux disease): Status: Acute (5) DJD (degenerative joint disease): Status: Acute (6) Anxiety: Status: Acute (7) Non-insulin dependent type 2 diabetes mellitus: Status: Acute DS: Summary Hospital Course Hospital Course: ADMITTING DIAGNOSIS: obesity, hld, anxiety, asthma, dm ? DISCHARGE DIAGNOSIS: same, s/p laparoscopic sleeve gastrectomy ? PAST SURGICAL HISTORY: lasix ? PROCEDURE: upper endoscopy, laparoscopic sleeve gastrectomy ? DISCHARGE SUMMARY: ? History of Present Illness: ? The patient is a?33 year-old woman with a BMI of?40.2 kg/m2 and associated co- morbidities as described above. The patient had extensive work-up,lost?11.6 lbs preoperatively and was electively scheduled for laparoscopic, possible open sleeve gastrectomy and gastropexy. Risks and complications of the surgery were discussed with the patient in advance, particularly the possibility of , pulmonary embolism, anastomotic leak, bleeding, bowel injury, GERD, cardiac, renal or pulmonary complications. The patient understood all the risks and was in agreement with the surgical plan. ? Hospital Course: ? The patient underwent an uneventful laparoscopic sleeve gastrectomy with gastropexy on the day of admission. Postoperatively, the patient was transferred to the surgical floor. The patient received IV Acetaminophen and IV dilaudid for pain control. Patient was started on bariatric phase 1 diet POD #0. On postoperative day one, the patient was feeling well without nausea, vomiting, fevers, or tachycardia. The patient had some mild incisional pain and the abdomen was soft. ? On the morning of postoperative day one, the patient was continued on 1 ounce of water or ice every half hour. During the day, the patient did fairly well, having some incisional pain, but able to ambulate adequately and to tolerate liquids well. ? Since the patient is doing well, we decided that the patient was ready to be discharged. The patient was given instructions to follow-up with me next week and to call my office for any fever over 101, persistent abdominal pain, nausea, vomiting, GERD, symptoms of DVT such as calf tenderness, or leg swelling, or pulmonary embolism such as chest pain or shortness of breath. The patient was also instructed to drink 40-60 ounces of liquids per day using the 1-ounce cups. The patient had been given prescriptions for Tylenol for pain, Zofran prn for nausea, and pantoprazole and carafate previously. The patient was encouraged to ambulate and use the incentive spirometer. The patient was allowed to shower, but no baths, and encouraged to stay active at home. All of these instructions were given to the patient personally. All questions were answered and the patient understood all instructions, the instructions were also given to the patient in print. Time Attestation Discharge coordination time: Less than 30 minutes Quality: Safe Use of Opioids Does Pt have an Active Cancer Diagnosis on the Problem List?: No Quality: Stroke Does the patient have a stroke diagnosis?: No Physical Exam Vital Signs: Vital Signs: Last Vital Signs Temp 97.9 F 03/15/23 08:36 Pulse 101 H 03/15/23 08:36 Resp 18 03/15/23 08:36 BP 120/78 03/15/23 08:36 Pulse Ox 99 03/15/23 08:36 O2 Del Method Room Air 03/15/23 08:36 BMI result Body Mass Index 38.2 DS: Data Data Completed and Pending Pending studies at discharge: Pending at discharge 03/15/23 12:28 Surgical [PTH] Routine Surgical [PTH] Routine Labs on day of discharge: Laboratory Results - last 24 hr 03/15/23 03/15/23 08:00 08:31 POC Glucose 92 Urine Test NEGATIVE Discharge Plan Discharge Anticipated Discharge Date/Time: 03/16/23 10:00 Patient Disposition: Home, Self-Care Discharge Diagnosis: s/p laparoscopic sleeve gastrectomy Referrals: Jony Stewart MD [Primary Care Provider] - 1 Week Discharge Medications: Continued pantoprazole 40 mg tablet,delayed release (DR/EC) 40 mg PO DAILY Qty: 90 0RF sucralfate 100 mg/mL suspension 10 ml PO BID Qty: 600 2RF ondansetron 4 mg tablet,disintegrating 4 mg PO Q12H Qty: 20 0RF Rx Instructions: Only take one every 12 hours as needed if you have nausea lorazepam 0.5 mg tablet 0.5 mg PO BID PRN (Reason: Anxiety) fluticasone propionate [Flovent HFA] 110 mcg/actuation HFA aerosol inhaler 1 puff inhalation Q12H Held lactulose 10 gram/15 mL solution 30 ml PO DAILY Hold Instructions: until discussed with dr patiño Depo-SubQ provera 104 104 mg/0.65 mL syringe 104 mg subcut Q3M Hold Instructions: until discussed with dr patiño omega 1-qdf-jcs-fish oil [Fish Oil] 1,000 mg (120 mg-180 mg) capsule 1 cap PO DAILY Hold Instructions: until discussed with Dr Patiño Discontinued cholecalciferol (vitamin D3) 125 mcg (5,000 unit) capsule 125 mcg PO DAILY Qty: 30 2RF thiamine HCl (vitamin B1) 100 mg tablet 100 mg PO DAILY Qty: 30 2RF zinc gluconate 10 mg lozenge 10 mg PO DAILY Qty: 100 0RF vitamin A palmitate 3,000 mcg (10,000 unit) capsule 10,000 unit PO DAILY 90 Days Qty: 90 0RF polyethylene glycol 3350 [Miralax] 17 gram powder in packet 17 g PO DAILY Qty: 14 0RF Rx Instructions: Mix each packet with 8oz of water, Crystal light, or Gatorade zero, or Propel and do 7 packets on 03/13/23 and another 7 packets on 03/14/23 Ozempic 1 mg/dose (4 mg/3 mL) pen injector 4 mg subcut QWEEK polyethylene glycol 3350 [Miralax] 17 gram/dose powder 17 g PO DAILY esomeprazole magnesium 40 mg capsule,delayed release(DR/EC) 40 mg PO DAILY Discharge Orders: Discharge Order (Routine); Ordered 03/16/23 Ordered By: Carlos Irby Activity on Discharge: No heavy lifting Stand Alone Forms: Patient Portal Discharge page Care Plan Goals: weight loss Health Concerns: obesity Plan of Treatment: No tub baths, sex or returning to work until discussed at first post op appointment. No exercise, alcohol, tobacco or illegal drug use. Continue to use incentive spirometer hourly while awake. Walk in home for 5- 10 minutes every 2 hours during the first week. Follow all instructions in the bariatric handbook and call with any questions.Discharge Instructions 1. Please call your doctor or come back to the emergency room should any new symptoms arise. 2. You will receive a courtesy call from [facility] 24-48 hours after discharge. 3. Activity: abstain from alcohol, practice limited stair climbing, no bending, no driving, no exercise, no illicit substances, no lifting, no sex, no tub bath, no work. 4. Diet: continue as discussed with Dr. Patiño. 5. Dressing Change/Wound Care: Your incision is covered by clear bandages and guaze underneath. If the area is tender, you may apply an ice pack for short intervals (no more than 20 minutes on, followed by at least 20 minutes off). Do not apply heat. Do not use creams, lotions, or topical antibiotics unless instructed to do so by your surgeon. These can cause infection or allergic reaction. 6. Call your doctor if: - Your temperature exceeds 101.5 F - You experience excessive pain or swelling - You have an unexpected reaction to medication - You have excessive bleeding - You experience continued vomiting/nausea - Your incision begins to separate - Your incision shows signs of infection such as increased redness, swelling, excessive pain, heat, or drainage (light blood or clear fluid is normal) 7. General instructions: No lifting greater than 5 lbs for 1 week and not more than 20lbs the next 3?weeks. No driving until seen at the office in 5-7 days after surgery. If you do not move your bowels in the next 2 days, please tell?Dr. Patiño. Please walk around your home every hour or two to prevent blood clots from forming in your legs. You do not need to wake from sleeping to walk. Please sleep in a bed or couch to prevent kinking at the hips and knees. 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 You may shower, no hot tubs, baths or swimming pools.?Please follow the post op diet instructions you are?given by Dr Patiño? and text me daily at 5-6pm for an update.?If you have any issues or concerns or questions please communicate this to him via text.? The Celebrate shakes have all of the bariatric vitamins you need if you consume these shakes. If you are drinking other protein shakes, you will need to purchase the Celebrate multivitamins and calcium that are available in the hospital gift shop on the first floor of the main hospital.??Do not take anything without first discussing with Dr Patiño. Please make sure you are consuming at least 40 ounces of fluids per day starting the?day AFTER your discharge from the hospital. Always drink 1-2 ml per minute using the 5ml?syri nge. If you drink faster you may experience?bloating,?gas pain, burping, nausea or heartburn. In that case please slow down your pace and use the syringe to?understand better the?proper?pace and volume of drinking. Do not hesitate to contact the office with any questions at . The patient's medical history has been reviewed and they are considered low risk for post op DVT and therefore DVT prophylaxis is not considered necessary. Travel after surgery was reviewed. The patient has not disclosed any travel plans during the first 30 days after surgery and they have been advised that within the first 30 days after surgery any bus, plane, train or car travel over 2 hours in duration is contraindicated due to the possibility of developing blood clots from immobility. Any travel, needs to include periods of ambulation of 10 minutes in duration every 2 hours.? The patient was instructed to discuss any plans for travel during this period with their bariatric surgeon. Assessment: stable s/p laparoscopic sleeve gastrectomy
[2023-03-15 13:51] LABS: Hematocrit 32.3 % (37.0-47.0); Hemoglobin 10.7 g/dl (12.0-16.0)
[2023-03-15 14:00] LABS: Anion Gap 12 (12-20); Blood Urea Nitrogen 8 mg/dL (9-16); Calcium 8.4 mg/dL (8.4-10.2); Carbon Dioxide 21 mmol/L (22-29); Chloride 109 mmol/L (96-108); Creatinine Clr Calc Pharmacy 106.1; Estimated Glomerular Filt Rate > 60; Glucose Random 125 mg/dL (60-115); Potassium 4.3 mmol/L (3.3-5.1); Sodium 138 mmol/L (135-145)
[2023-03-15] MEDS: 0.9 % Sodium Chloride Flush 3 ML SYRINGE IVFLUSH (15:49)
[2023-03-15] MEDS: ceFAZolin Sodium/Dextrose,Iso 2 GM/50 ML PIGGYBACK IV (17:31)
[2023-03-15] MEDS: Acetaminophen 1,000 MG/100 ML PIGGYBACK 16.7 MG IV ×2 (18:18→23:54)
[2023-03-15] MEDS: Fluticasone Propionate 100 MCG BLST.W.DEV 1 PUFF INHALE (19:49)
[2023-03-15] MEDS: Famotidine/PF 20 MG/2 ML VIAL IVPUSH (20:05)
[2023-03-16 00:05] VITALS: BP 155/93; PULSE 78; RESP 18; TEMP 36.8; O2SAT 99
[2023-03-16 03:24] VITALS: BP 130/75; PULSE 75; RESP 16; TEMP 36.6; O2SAT 97
[2023-03-16] MEDS: Acetaminophen 1,000 MG/100 ML PIGGYBACK 16.7 MG IV (04:56)
[2023-03-16 07:20] LABS: MANUAL DIFF FLAG NO
[2023-03-16 07:23] LABS: Hematocrit 33.5 % (37.0-47.0); Hemoglobin 11.6 g/dl (12.0-16.0); Imm Gran Abs Auto 0.04 X10*3/uL (0.00-0.03); Imm Gran Pct Auto 0.5 % (0.0-0.4); Lymphocytes Absolute Auto 1.1 X10*3/uL (1.2-4.9); Lymphocytes Percent Auto 13.7 % (20-40); Mean Corpuscular HGB Conc 34.6 g/dl (31.0-35.0); Mean Corpuscular Hemoglobin 29.8 pg (27.0-33.0); Mean Corpuscular Volume 86.1 fL (80.0-98.0); Mean Platelet Volume 10.5 fL (9.4-12.3); Monocytes Absolute Auto 0.5 X10*3/uL (0.1-1.2); Monocytes Percent Auto 5.7 % (2-11); Neutrophils Absolute Auto 6.6 x10*3/uL (2.0-8.3); Neutrophils Percent Auto 80.1 % (45-73); Platelet Count 251 X10*3/uL (160-400); Red Blood Count 3.89 X10*6/uL (4.20-5.50); Red Cell Distribution Width 12.7 % (11.0-16.0); White Blood Count 8.3 X10*3/uL (4.8-10.8)
[2023-03-16 07:36] LABS: Anion Gap 16 (12-20); Blood Urea Nitrogen 7 mg/dL (9-16); Calcium 8.9 mg/dL (8.4-10.2); Carbon Dioxide 18 mmol/L (22-29); Chloride 107 mmol/L (96-108); Creatinine Clr Calc Pharmacy 117.1; Estimated Glomerular Filt Rate > 60; Glucose Random 108 mg/dL (60-115); Potassium 4.3 mmol/L (3.3-5.1); Sodium 137 mmol/L (135-145)
[2023-03-16] MEDS: Fluticasone Propionate 100 MCG BLST.W.DEV 1 PUFF INHALE (07:40)
[2023-03-16 07:42] VITALS: PULSE 76; RESP 18; O2SAT 99
[2023-03-16 07:55] VITALS: BP 141/88; PULSE 74; RESP 18; TEMP 36.4; O2SAT 98
--- NOTE | 2023-03-16 09:33 | MHC.CM.PN ---
patient s/p gastric sleeve. discharged self care prior to be seen by case management. She arranged for a ride home.
--- NOTE | 2023-03-16 14:32 | HO.POSTANES ---
Post Anesthesia Evaluation Post Anesthesia Evaluation Date of Service: 03/16/23 Vital Signs: Vital Signs Temp Pulse Resp BP Pulse Ox O2 Del Method 03/16/23 07:55 97.6 F 74 18 141/88 H 98 Room Air 03/16/23 07:42 76 18 03/16/23 03:24 97.9 F 75 16 130/75 97 Room Air Anesthesia: General Endotracheal-GETA Mental Status: Awake Pain Control: Satisfactory Nausea/Vomiting: None Hydration: Adequate Anesthesia-Related Issues: No Anes. Related Issues
== END 2023-03-16 09:17 | disposition home or self-care (01) | DRG 403 ==
LOC: HO.SSSA 13:21 → HO.S3 13:40
PROVIDERS: Nurse Practitioner; Physician Assistant Surgical; Admitting Provider Surgery; PCP Internal Medicine; Visit Provider Surgery
PROC: 0DB64Z3 Excision of Stomach, Percutaneous Endoscopic Approach, Vertical (ICD-10-PCS; CPT 43845; principal; 2023-03-15 10:10)
DX: E66.01 Morbid (severe) obesity due to excess calories (principal); E11.9 Type 2 diabetes mellitus without complications; E78.5 Hyperlipidemia, unspecified; J45.909 Unspecified asthma, uncomplicated; K21.9 Gastro-esophageal reflux disease without esophagitis; M19.90 Unspecified osteoarthritis, unspecified site; F41.9 Anxiety disorder, unspecified; M54.9 Dorsalgia, unspecified; Z68.37 Body mass index [BMI] 37.0-37.9, adult; Z79.51 Long term (current) use of inhaled steroids; Z79.899 Other long term (current) drug therapy
CPT/HCPCS: 36415; 80048; 81025; 82947; 85014; 85018; 85025; 86850; 86900; 86901; 88307; 88342; 94640; A4649; C9145; J0131; J0690; J1100; J1170; J2250; J2371; J2405; J2704; J2795; J3010; J7120

== ENCOUNTER → 2023-03-15 08:05 | Outpatient (BNV) | payer OTHER, SELFPAY | PROVIDERS: Admitting Provider Surgery; PCP Internal Medicine; Visit Provider Surgery | DX: E66.9 Obesity, unspecified (principal); Z68.37 Body mass index [BMI] 37.0-37.9, adult | CPT/HCPCS: 43659; 43775; 99024; 99212 ==

== ENCOUNTER 2023-03-21 11:55 | Outpatient (AMB) | payer OTHER, SELFPAY ==
--- NOTE | 2023-03-21 12:31 | A.OFFVIS_ITS ---
Intake VS Expanded 03/21/23 12:40 BP 112/66 Blood Pressure Location Rt brachial Blood Pressure Position Sitting Pulse 82 Pulse Source Pulse Oximeter Temp 98.0 F Temperature Source Temporal Artery Scan Pulse Oximetry 99 Oxygen Delivery Method Room Air Height 5 ft Weight 185 lb 12.8 oz BMI 36.3 Body Fat % 41.0 Body Fat Mass 76.0 Fat Free Mass 109.6 Visceral Fat Rating 9.0 Body Water % 42.4 Body Water Mass 78.8 Muscle Mass/Score 104.0 Basal Metabolic Rate/Score 2,527 Intake Visit Reasons: (OV) PO LSG 03/15/23 Allergies No Known Allergies Allergy (Verified 03/21/23 12:32) HPI HPI Comments History of Present Illness Details 33-year-old female returns to the office today, postop day 6, status post sleeve gastrectomy performed on 03/15/2023. Overall, she is doing well and denies any complaints. She is moved her bowels and has no pain. She is tolerating 3 celebrate 4 in 1 shakes with 1 scoop each in 8 oz of almond milk and an additional 16 oz of fluid. [facility] Medical History (Updated 03/18/23 @ 00:03 by Jaleesa Suazo) BMI 37.0-37.9, adult Pre-op evaluation BMI 39.0-39.9,adult Hyperlipidemia Constipation Asthma DJD (degenerative joint disease) GERD (gastroesophageal reflux disease) Non-insulin dependent type 2 diabetes mellitus Morbid obesity Surgical History S/P laparoscopic sleeve gastrectomy Hx of laparoscopic partial gastrectomy History of esophagogastroduodenoscopy (EGD) History of removal of skin mole (~06/2007) Hx of LASIK (~12/2022) Family History Mother Ovarian cancer Breast cancer Social History Household Members: Family Household Members Other:: minor son Housing: House Are you a primary home care specialist to a significant other at home: Yes Do you presently have visiting nurse or other home services: No Alcohol intake: never Patient Tobacco Use Status: Never used Tobacco Physical Exam Vital Signs: Last Vital Signs Temp 98.0 F 03/21/23 12:40 Pulse 82 03/21/23 12:40 BP 112/66 03/21/23 12:40 Pulse Ox 99 03/21/23 12:40 Oxygen Delivery Method Room Air 03/21/23 12:40 BMI result Body Mass Index 36.3 GI Inspection: Yes incision (Mild bruising at the midline incision otherwise clean, dry, intact.) Assessment & Plan Assessment & Plan (1) S/P laparoscopic sleeve gastrectomy: Code(s): Z98.84 - Bariatric surgery status Plan: POD 6 s/p LSG on 03/15/[address] Gee Weight loss prior to surgery was 11.6 pounds or 5.6 % TBWL. Original weight on 01/16/2023 was 206 pounds and op weight was 194.4 pounds. Be sure to text Dr Gee exactly 1 week after surgery your weight from your home scale so he can adjust your meal plan. Continue meal plan until f/u w Mechelle in 2 weeks May shower, no submersion in bath for another week Continue abdominal binder with activity and exercise for the next 2 weeks. Exercise prior to surgery was treadmill, may resume No abdominal exercises for 6 weeks post operatively Will be emailed link to post op video for review Reminded of the pace of drinking, 2 mL per minute, 1 oz/15 min. Coding Level of Care Code Global (29992) Diagnoses S/P laparoscopic sleeve gastrectomy Z98.84
[2023-03-21 12:40] VITALS: BP 112/66; PULSE 82; TEMP 36.7; O2SAT 99; BMI 36.3
== END 2023-03-21 12:58 | disposition home or self-care (01) ==
PROVIDERS: PCP Nurse Practitioner Family; Visit Provider Physician Assistant Surgical
DX: Z98.84 Bariatric surgery status (principal)
CPT/HCPCS: 99024

== ENCOUNTER → 2023-03-21 11:55 | Outpatient (BNVA) | payer OTHER, SELFPAY | PROVIDERS: PCP Nurse Practitioner Family; Visit Provider Physician Assistant Surgical | DX: Z98.84 Bariatric surgery status (principal) | CPT/HCPCS: 99212 ==

== ENCOUNTER 2023-04-04 13:30 | Outpatient (AMB) | payer OTHER, SELFPAY ==
--- NOTE | 2023-04-04 13:33 | MHC.OFFVISWM ---
Intake Intake Visit Reasons: VIDEO PO LSG 03/15/23 Allergies No Known Allergies Allergy (Verified 03/21/23 12:32) Medication List - Last Reconciled 04/04/23 by Mechelle Emanuel PA-C fluticasone propionate 110 mcg/actuation (Flovent HFA) 1 puff inhalation Q12H lorazepam 0.5 mg PO BID PRN medroxyprogesterone (Depo-SubQ provera 104) 104 mg subcut Q3M pantoprazole 40 mg PO DAILY sucralfate 10 mL PO BID HPI HPI Comments History of Present Illness Details 33 yo woman is 3 weeks s/p LSG. 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 No n/v, abd pain or reflux - had some with bars - takes smaller bites now. Has not weighed herself yet this week, will send her weight to Dr Fatima tomorrow. Meal plan per Dr Fatima: 8am - 4:1 1 scoop UAM 11am same shake 2pm - 4:1 - 2 scoops 5pm- Celebrate bar Exercise - treadmill 7 days/week - speed 3.0 - 4.0, incline - is broken on her machine, uses blocks under machine. 300 calories in 30 - 40 minutes. [facility] Medical History BMI 37.0-37.9, adult Pre-op evaluation BMI 39.0-39.9,adult Hyperlipidemia Constipation Asthma DJD (degenerative joint disease) GERD (gastroesophageal reflux disease) Non-insulin dependent type 2 diabetes mellitus Morbid obesity Surgical History S/P laparoscopic sleeve gastrectomy Hx of laparoscopic partial gastrectomy History of esophagogastroduodenoscopy (EGD) History of removal of skin mole (~06/2007) Hx of LASIK (~12/2022) Family History Mother Ovarian cancer Breast cancer Social History Household Members: Family Household Members Other:: minor son Housing: House 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 No change to meal plan. Will send her weight to Dr Fatima tomorrow. Exercise - now alternate treadmill wit elliptical every other day for at least 300 calories. Next appt with me in 3 weeks. Telehealth Telehealth Location of provider rendering services: practice address Location of patient: address on file Patient Identification confirmed using: Name, : Yes Telehealth method: video Patient verbally consented to treatment: Yes Patient verbally consented to billing insurance company: Yes Patient informed of any privacy concerns related to visit: Yes Coding Level of Care Code Global (46414) Diagnoses S/P laparoscopic sleeve gastrectomy Z98.84
== END 2023-04-04 13:52 | disposition home or self-care (01) ==
LOC: HO.HBS 13:49
PROVIDERS: PCP Nurse Practitioner Family; Visit Provider Physician Assistant
DX: Z98.84 Bariatric surgery status (principal)
CPT/HCPCS: 99024

== ENCOUNTER → 2023-04-04 13:30 | Outpatient (BNVA) | payer OTHER, SELFPAY | PROVIDERS: PCP Nurse Practitioner Family; Visit Provider Physician Assistant | DX: Z98.84 Bariatric surgery status (principal) | CPT/HCPCS: 99212 ==

== ENCOUNTER 2023-04-30 13:00 | Outpatient (AMB) | payer OTHER, SELFPAY ==
--- NOTE | 2023-04-30 13:03 | MHC.OFFVISWM ---
Intake VS Expanded 04/30/23 13:11 Height 5 ft Weight 171 lb 6 oz BMI 33.5 Intake Visit Reasons: (TV) PO LSG 03/15/23 Allergies No Known Allergies Allergy (Verified 03/21/23 12:32) Medication List - Last Reconciled 04/30/23 by Mechelle Emanuel PA-C ferric maltol (Accrufer) 30 mg PO ONCE fluticasone propionate 110 mcg/actuation (Flovent HFA) 1 puff inhalation Q12H lorazepam 0.5 mg PO BID PRN pantoprazole 40 mg PO DAILY sucralfate 10 mL PO BID HPI HPI Comments History of Present Illness Details 33 yo woman now 7 weeks s/p LSG. 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 N n/v, abd apin or reflux. BM's every 3d, not hard to pass. Was started on iron supplements by her PCP 2 weeks ago. Meal plan per R: 8an - 4:1 1 scoop UAM 11 am - same shake 2 pm - 2 scoops 4:1 5pm- bar over 3 hours. - does not like this, finding it hard to eat wants an alternative. Exercise - home work out videos - Cardio - 7 days per week - walking, elliptical and bike - 300 per day. [facility] Medical History BMI 37.0-37.9, adult Pre-op evaluation BMI 39.0-39.9,adult Hyperlipidemia Constipation Asthma DJD (degenerative joint disease) GERD (gastroesophageal reflux disease) Non-insulin dependent type 2 diabetes mellitus Morbid obesity Surgical History S/P laparoscopic sleeve gastrectomy Hx of laparoscopic partial gastrectomy History of esophagogastroduodenoscopy (EGD) History of removal of skin mole (~06/2007) Hx of LASIK (~12/2022) Family History Mother Ovarian cancer Breast cancer Social History Household Members: Family Household Members Other:: minor son Housing: House 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 Does not like bars and would like to stop them. Will start psyllium powder daily now for constipation worsened by iron supplements. Exericse - alternate cardio for 500 calories 4d/week with ST 3 d/week. Meal plan - discussed scrambled egg or yougrt when ready to stop bar and start food. Will continue to send weekly weights to Dr Fatima for now. Next appt with PA in 4 weeks. Telehealth Telehealth Location of provider rendering services: practice address Location of patient: address on file Patient Identification confirmed using: Name, : Yes Telehealth method: video Patient verbally consented to treatment: Yes Patient verbally consented to billing insurance company: Yes Patient informed of any privacy concerns related to visit: Yes Coding Level of Care Code Global (98994) Diagnoses S/P laparoscopic sleeve gastrectomy Z98.84
[2023-04-30 13:11] VITALS: BMI 33.5
== END 2023-04-30 13:29 | disposition home or self-care (01) ==
LOC: HO.HBS 13:28
PROVIDERS: PCP Nurse Practitioner Family; Visit Provider Physician Assistant
DX: Z98.84 Bariatric surgery status (principal)
CPT/HCPCS: 99024

== ENCOUNTER → 2023-04-30 13:00 | Outpatient (BNVA) | payer OTHER, SELFPAY | PROVIDERS: PCP Nurse Practitioner Family; Visit Provider Physician Assistant | DX: Z98.84 Bariatric surgery status (principal) | CPT/HCPCS: 99212 ==

== ENCOUNTER 2023-09-14 09:08 | Outpatient (REF) | payer BC, SELFPAY ==
[2023-09-14 12:40] LABS: MANUAL DIFF FLAG NO
[2023-09-14 13:20] LABS: Basophils Percent Auto 0.2 % (0-2); Eosinophils Absolute Auto 0.2 X10*3/uL (0.0-0.4); Eosinophils Percent Auto 3.7 % (0-4); Hematocrit 35.3 % (37.0-47.0); Hemoglobin 11.8 g/dl (12.0-16.0); Imm Gran Abs Auto 0.02 X10*3/uL (0.00-0.03); Imm Gran Pct Auto 0.3 % (0.0-0.4); Lymphocytes Absolute Auto 2.5 X10*3/uL (1.2-4.9); Lymphocytes Percent Auto 38.7 % (20-40); Mean Corpuscular HGB Conc 33.4 g/dl (31.0-35.0); Mean Corpuscular Hemoglobin 30.3 pg (27.0-33.0); Mean Corpuscular Volume 90.7 fL (80.0-98.0); Mean Platelet Volume 11.3 fL (9.4-12.3); Monocytes Absolute Auto 0.4 X10*3/uL (0.1-1.2); Monocytes Percent Auto 6.7 % (2-11); Neutrophils Absolute Auto 3.3 x10*3/uL (2.0-8.3); Neutrophils Percent Auto 50.4 % (45-73); Platelet Count 226 X10*3/uL (160-400); Red Blood Count 3.89 X10*6/uL (4.20-5.50); Red Cell Distribution Width 13.2 % (11.0-16.0); White Blood Count 6.5 X10*3/uL (4.8-10.8)
[2023-09-14 13:54] LABS: Anion Gap 11 (12-20); Blood Urea Nitrogen 12 mg/dL (9-16); C Reactive Protein 0.19 mg/dL (< or = 0.50); Calcium 9.7 mg/dL (8.4-10.2); Carbon Dioxide 24 mmol/L (22-29); Chloride 108 mmol/L (96-108); Cholesterol 130 mg/dL (<200); Estimated Glomerular Filt Rate > 60; Glucose Random 76 mg/dL (60-115); HDL Cholesterol 30 mg/dL (>40); Iron 49 mcg/dL (30-160); LDL Cholesterol Calculated 87 mg/dL (<100); Percent Iron Saturation 25 % (15-50); Potassium 3.9 mmol/L (3.3-5.1); Sodium 139 mmol/L (135-145); Total Iron Binding Capacity 193 mcg/dL (228-428); Triglycerides 67 mg/dL (<150); Unsaturated Iron Binding 144 ug/dL
[2023-09-14 13:58] LABS: Estimated Average Glucose 82 mg/dL; Hemoglobin A1c % 4.5 % (<6.0)
[2023-09-14 14:11] LABS: Ferritin 187 ng/mL (10-122); Insulin 6 uU/mL (2-29); TSH reflex Free T4 0.51 uIU/mL (0.32-4.0); Vitamin D 25-OH Total 34.5 ng/mL (>30)
[2023-09-14 14:19] LABS: Folate 14.8 ng/mL (> or = 4.0); Vitamin B12 733 pg/mL (200-900)
[2023-09-18 16:08] LABS: Zinc 58 mcg/dL (60-130)
[2023-09-19 16:08] LABS: Vitamin A 29 mcg/dL (38-98)
[2023-09-20 15:39] LABS: Vitamin B1 29 nmol/L (8-30)
== END 2023-09-14 09:09 | disposition home or self-care (01) ==
LOC: HO.LAB 09:08
PROVIDERS: PCP Nurse Practitioner Family; Visit Provider Physician Assistant Surgical
DX: Z01.818 Encounter for other preprocedural examination (principal); Z98.84 Bariatric surgery status; E60 Dietary zinc deficiency; E51.9 Thiamine deficiency, unspecified; E50.9 Vitamin A deficiency, unspecified; E55.9 Vitamin D deficiency, unspecified; E78.5 Hyperlipidemia, unspecified; E11.9 Type 2 diabetes mellitus without complications
CPT/HCPCS: 36415; 80048; 80061; 82306; 82607; 82728; 82746; 83036; 83525; 83540; 84425; 84443; 84590; 84630; 85025; 86140; 86850; 86900; 86901

== ENCOUNTER 2023-09-14 09:08 | Outpatient (AMB) | payer BC, MEDICAID, SELFPAY ==
--- NOTE | 2023-09-14 09:12 | A.OFFVIS_ITS ---
VS Expanded 09/14/23 09:26 BP 111/76 Blood Pressure Location Rt brachial Blood Pressure Position Sitting Pulse 92 Pulse Source Pulse Oximeter Temp 96.7 F L Temperature Source Temporal Artery Scan Pulse Oximetry 100 Oxygen Delivery Method Room Air Height 5 ft Weight 157 lb 6.4 oz BMI 30.7 Body Fat % 32.0 Body Fat Mass 50.2 Fat Free Mass 107.0 Visceral Fat Rating 5.0 Body Water % 48.7 Body Water Mass 76.6 Muscle Mass/Score 101.4 Basal Metabolic Rate/Score 1,465 Intake Visit Reasons: (OV) PO LSG 03/15/23 Personnel Psychologist Required: No Allergies No Known Allergies Allergy (Verified 09/14/23 09:22) Medication List - Last Reconciled 09/14/23 by MORGAN Quintana fluticasone propionate 110 mcg/actuation (Flovent HFA) 1 puff inhalation Q12H multivitamin 1 tab PO DAILY propranolol 10 mg PO TID PRN HPI Comments Details: This?a?33?yo female who is s/p LSG without hiatal hernia repair on?03/15/2023. Presents for six-month post op visit. Weight today is 157.4 pounds, with a BMI of 30.7. There has been a 48.6 pound weight loss,(initial weight 206 pounds) since starting the program on 01/16/2023 reflecting a 23.5 % total body weight loss and a weight loss of 37 pounds since surgery (operative weight 194.4 pounds) reflecting a 19 % TBWL since surgery. No complaints of nausea, emesis, abdominal pain or reflux. Reports infrequent but normal bowel movements every 1- 2 days. Taking celebrate mvi Present meal plan includes: isopure infusion 1 scoop (30 gm) mixed w 24 oz water oatmeal w 1 scoop premier protein or celebrate rebuild premier protein 1 scoop in 8 oz almond milk octopus 4 oz in olive oil 24 gm protein or 5 shrimp 12 gm protein drinking 32-48 oz ? Exercise routine includes: fernanda [employer], cardio and weights 250-350 vanessa 5-6 x per week Any post op complications: none ASIA: never DM: resolved HTN: never Hyperlipidemia: never GERD:?0-5 scale ??0 = no symptoms ??1 = symptoms noticeable but not bothersome 2 =symptoms bothersome but not daily ? 3 = symptoms bothersome and daily 4 = symptoms affect daily activities 5 = symptoms are incapacitating, unable to do daily activities ? How bad is the heartburn: 0 ? Heartburn while lying down: 0 ? Heartburn when standing up: 0 ? Heartburn after meals: 0 ? Does heartburn change your diet: 0 ? Does heartburn wake you up from sleep: 0 ? Do you have difficulty swallowin ? Do you have pain with swallowin ? If you take medicine for your reflux, does this affect your daily life: 0 Satisfaction with present condition - satisfied or not satisfied: satisfied [facility] Medical History BMI 37.0-37.9, adult Pre-op evaluation BMI 39.0-39.9,adult Hyperlipidemia Constipation Asthma DJD (degenerative joint disease) GERD (gastroesophageal reflux disease) Non-insulin dependent type 2 diabetes mellitus Morbid obesity Surgical History S/P laparoscopic sleeve gastrectomy Hx of laparoscopic partial gastrectomy History of esophagogastroduodenoscopy (EGD) History of removal of skin mole (~06/2007) Hx of LASIK (~12/2022) Family History Mother Ovarian cancer Breast cancer Social History Household Members: Family Household Members Other:: minor son Housing: House Are you a primary daytime caregiver to a significant other at home: Yes Do you presently have visiting nurse or other home services: No Alcohol intake: never Patient Tobacco Use Status: Never used Tobacco Physical Exam Vital Signs: Last Vital Signs Temp 96.7 F L 09/14/23 09:26 Pulse 92 09/14/23 09:26 BP 111/76 09/14/23 09:26 Pulse Ox 100 09/14/23 09:26 Oxygen Delivery Method Room Air 09/14/23 09:26 BMI result Body Mass Index 30.7 Const General: cooperative and no acute distress Orientation/consciousness: patient oriented x3 Resp Effort & Inspection: normal respiratory effort Auscultation: clear to auscultation bilaterally Cardio Rate: regular rate Rhythm: regular rhythm GI Inspection: Yes normal to inspection and Yes incision (well healed) Palpation (GI): Soft to palpation and no masses Neuro General: patient oriented x3 Assessment & Plan Assessment & Plan (1) S/P laparoscopic sleeve gastrectomy: Code(s): Z98.84 - Bariatric surgery status Category: Surgical Plan: Overall, doing fairly well however she had changed her meal plan without significant guidance. We will change this to optimize stated goal of losing approximately 20 lb. isopure infusion 1/2 scoopmixed w 24 oz water oatmeal (potentially remove) w 1 scoop premier protein or celebrate rebuild premier protein 1 scoop in 8 oz almond milk octopus 2.5 oz in olive oil 15 gm protein or 5 shrimp 12 gm protein Encouraged to do weights then cardio at the gym. Check six-month postop labs. Encouraged to text weekly with any questions or concerns. Return to clinic 2 months. Orders: Orders Zinc Today E11.9 - Type 2 diabetes mellitus without complications, E50.9 - Vitamin A deficiency, unspecified, E51.9 - Thiamine deficiency, unspecified, E55.9 - Vitamin D deficiency, unspecified, E60 - Dietary zinc deficiency, E78.5 - Hyperlipidemia, unspecified, Z98.84 - Bariatric surgery status C Reactive Protein Today E11.9 - Type 2 diabetes mellitus without complications, E50.9 - Vitamin A deficiency, unspecified, E51.9 - Thiamine deficiency, unspecified, E55.9 - Vitamin D deficiency, unspecified, E60 - Dietary zinc deficiency, E78.5 - Hyperlipidemia, unspecified, Z98.84 - Bariatric surgery status Ferritin Today E11.9 - Type 2 diabetes mellitus without complications, E50.9 - Vitamin A deficiency, unspecified, E51.9 - Thiamine deficiency, unspecified, E55.9 - Vitamin D deficiency, unspecified, E60 - Dietary zinc deficiency, E78.5 - Hyperlipidemia, unspecified, Z98.84 - Bariatric surgery status Basic Metabolic Panel Today E11.9 - Type 2 diabetes mellitus without complications, E50.9 - Vitamin A deficiency, unspecified, E51.9 - Thiamine deficiency, unspecified, E55.9 - Vitamin D deficiency, unspecified, E60 - Dietary zinc deficiency, E78.5 - Hyperlipidemia, unspecified, Z98.84 - Bariatric surgery status Insulin Today E11.9 - Type 2 diabetes mellitus without complications, E50.9 - Vitamin A deficiency, unspecified, E51.9 - Thiamine deficiency, unspecified, E55.9 - Vitamin D deficiency, unspecified, E60 - Dietary zinc deficiency, E78.5 - Hyperlipidemia, unspecified, Z98.84 - Bariatric surgery status Hemoglobin A1c Today E11.9 - Type 2 diabetes mellitus without complications, E50.9 - Vitamin A deficiency, unspecified, E51.9 - Thiamine deficiency, unspecified, E55.9 - Vitamin D deficiency, unspecified, E60 - Dietary zinc deficiency, E78.5 - Hyperlipidemia, unspecified, Z98.84 - Bariatric surgery status Complete Blood Count Auto Diff Today E11.9 - Type 2 diabetes mellitus without complications, E50.9 - Vitamin A deficiency, unspecified, E51.9 - Thiamine deficiency, unspecified, E55.9 - Vitamin D deficiency, unspecified, E60 - Dieta ry zinc deficiency, E78.5 - Hyperlipidemia, unspecified, Z98.84 - Bariatric surgery status Lipid Panel Today E11.9 - Type 2 diabetes mellitus without complications, E50.9 - Vitamin A deficiency, unspecified, E51.9 - Thiamine deficiency, unspecified, E55.9 - Vitamin D deficiency, unspecified, E60 - Dietary zinc deficiency, E78.5 - Hyperlipidemia, unspecified, Z98.84 - Bariatric surgery status IRON PROFILE Today E11.9 - Type 2 diabetes mellitus without complications, E50.9 - Vitamin A deficiency, unspecified, E51.9 - Thiamine deficiency, unsp ecified, E55.9 - Vitamin D deficiency, unspecified, E60 - Dietary zinc deficiency, E78.5 - Hyperlipidemia, unspecified, Z98.84 - Bariatric surgery status Vitamin B12 and Folate Today E11.9 - Type 2 diabetes mellitus without complications, E50.9 - Vitamin A deficiency, unspecified, E51.9 - Thiamine deficiency, unspecified, E55.9 - Vitamin D deficiency, unspecified, E60 - Dietary zinc deficiency, E78.5 - Hyperlipidemia, unspecified, Z98.84 - Bariatric surgery status Vitamin B1 Today E11.9 - Type 2 diabetes mellitus without complications, E50.9 - Vitamin A deficiency, unspecified, E51.9 - Thiamine deficiency, unspecified, E55.9 - Vitamin D deficiency, unspecified, E60 - Dietary zinc deficiency, E78.5 - Hyperlipidemia, unspecified, Z98.84 - Bariatric surgery status Vitamin A Today E11.9 - Type 2 diabetes mellitus without complications, E50.9 - Vitamin A deficiency, unspecified, E51.9 - Thiamine deficiency, unspecified, E55.9 - Vitamin D deficiency, unspecified, E60 - Dietary zinc deficiency, E78.5 - Hyperlipidemia, unspecified, Z98.84 - Bariatric surgery status TSH reflex Free T4 Today E11.9 - Type 2 diabetes mellitus without complications, E50.9 - Vitamin A deficiency, unspecified, E51.9 - Thiamine deficiency, unspecified, E55.9 - Vitamin D deficiency, unspecified, E60 - tary zinc deficiency, E78.5 - Hyperlipidemia, unspecified, Z98.84 - Bariatric surgery status Vitamin D 25-OH Total Today E11.9 - Type 2 diabetes mellitus without complications, E50.9 - Vitamin A deficiency, unspecified, E51.9 - Thiamine deficiency, unspecified, E55.9 - Vitamin D deficiency, unspecified, E60 - Dietary zinc deficiency, E78.5 - Hyperlipidemia, unspecified, Z98.84 - Bariatric surgery status
[2023-09-14 09:26] VITALS: BP 111/76; PULSE 92; TEMP 35.9; O2SAT 100; BMI 30.7
== END 2023-09-14 09:57 | disposition home or self-care (01) ==
PROVIDERS: PCP Nurse Practitioner Family; Visit Provider Physician Assistant Surgical
DX: E66.9 Obesity, unspecified (principal); Z68.30 Body mass index [BMI] 30.0-30.9, adult; Z90.3 Acquired absence of stomach [part of]; Z98.84 Bariatric surgery status
CPT/HCPCS: 99214

== ENCOUNTER 2023-10-02 07:26 | Day surgery (SDC) | payer BC, MEDICAID, SELFPAY ==
[2023-10-02 07:53] VITALS: BP 118/80; PULSE 78; RESP 20; TEMP 36.9; O2SAT 99; BMI 30.2
[2023-10-02 08:10] LABS: UPreg QC Valid YES; Urine Pregnancy NEGATIVE (NEGATIVE)
[2023-10-02] MEDS: Lactated Ringers 1,000 ML 80 ML IVCONT (08:16)
--- NOTE | 2023-10-02 08:36 | HO.ANESPROP2 ---
HPI - Anesthesia Eval Consult details Narrative: upper endo PMFSH Active Problems Active Problems: All Active Problems S/P laparoscopic sleeve gastrectomy (Acute) Anxiety disorder, unspecified (Acute) Obesity (Acute) Zinc deficiency (Acute) Vitamin B1 deficiency (Acute) Vitamin A deficiency (Acute) Vitamin D deficiency (Acute) Hyperlipidemia (Acute) Asthma (Acute) DJD (degenerative joint disease) (Acute) GERD (gastroesophageal reflux disease) (Acute) Non-insulin dependent type 2 diabetes mellitus (Acute) Past Medical History Medical History BMI 37.0-37.9, adult Pre-op evaluation BMI 39.0-39.9,adult Hyperlipidemia Constipation Asthma DJD (degenerative joint disease) GERD (gastroesophageal reflux disease) Non-insulin dependent type 2 diabetes mellitus Morbid obesity Family History Family History Mother Ovarian cancer Breast cancer Family history of problems with anesthesia: No Surgical History Surgical History S/P laparoscopic sleeve gastrectomy Hx of laparoscopic partial gastrectomy History of esophagogastroduodenoscopy (EGD) History of removal of skin mole (~06/2007) Hx of LASIK (~12/2022) History of Problems with Anesthesia: No Social History Social History Household Members: Family Household Members Other:: minor son Housing: House Are you a primary childcare attendant to a significant other at home: Yes Do you presently have visiting nurse or other home services: No Alcohol intake: never Patient Tobacco Use Status: Never used Tobacco Have you been hit, kicked, punched, or otherwise hurt by someone within the past year? If so, by whom?: No Advance Directives: No Advance Directives Information Provided: Yes Nutrition Risks: No Nutritional Risk Meds Allergies Allergy/AdvReac Type Severity Reaction Status Date / Time No Known Allergies Allergy Verified 09/14/23 09:22 Active Medications: Current Medications Lactated Ringer's (Lr) 1,000 mls @ 80 mls/hr IVCONT .[id number] LAMONT Last Admin: 10/02/23 08:16 Dose: 80 mls/hr Home Medications ?Medication ?Instructions ?Recorded ?Confirmed ?Last Taken ?Type fluticasone propionate 110 1 puff inhalation Q12H 01/16/23 09/14/23 Unknown History mcg/actuation HFA aerosol inhaler (Flovent HFA) multivitamin 1 tab PO DAILY 09/14/23 09/14/23 Unknown History propranolol 10 mg tablet 10 mg PO TID PRN anxiety 09/14/23 09/14/23 Unknown History Exam Height,Weight and Vital Signs: Height 5 ft Weight 70.216 kg Last Vital Signs Temp 98.5 F 10/02/23 07:53 Pulse 78 10/02/23 07:53 Resp 20 10/02/23 07:53 BP 118/80 10/02/23 07:53 Pulse Ox 99 10/02/23 07:53 O2 Del Method Room Air 10/02/23 07:53 Pertinent Lab Results Pertinent Lab Results: Laboratory Tests 10/02/23 07:55 Urine Test NEGATIVE Airway Mallampati Class: II TM Dist: >3cm Neck ROM: Full Heart: rrr Lungs: cta Assessment and Plan Assessment Anesthesia Assessment: Anesthesia Plan Discussed Final Anesthetic Review Family History of Problems with Anesthesia: No History of Problems with Anesthesia: No NPO: Yes ASA Class: III Final Preanesthetic Review: No Changes in Pt Med Stat, Meds/Allgs Chart Reviewed, Consent Obtained/Reviewed and Anes Risks/Benef Reviewed Patient Risk: Intermediate Procedure Risk: Low Anesthetic Plan Anesthetic Plan: MAC: Disposition: Standard PACU
--- NOTE | 2023-10-02 09:11 | MHC.SHP ---
Pre-Procedural Eval Section A - 24 Hr Update-Section A only Date of Service: 10/02/23 The patient is an INPATIENT: No The patient has been examined within 24 hours of the surgical procedure. The History & Physical has been completed within 30 days and I have reviewed it.: Yes Section B - Complete if H&P > 30 days Chief Complaint: Postgastric surgery syndromes Relevant Family History (Specify if Yes): No Relevant Social History: None Present Medications: None Medical History: No relevant PMH History of Previous Operations: Relevant previous surgery/procedure and date(s) (lap sleeve gastrectomy) Allergies: Allergies Allergy/AdvReac Type Severity Reaction Status Date / Time No Known Allergies Allergy Verified 09/14/23 09:22 Review of Systems Sugical H&P ROS: Negative: Constitution, Cardiovascular, Respiratory, Neurological, Psychiatric, Hem-Onc, Allergic/Immunologic, Gastrointestinal, Genitourinary, Musculoskeletal, Integumentary, Endocrine and Eyes/Ears/Nose/Throat Exam Surgical H&P Exam: Normal: HEENT, Normal: Heart, Normal: Lungs, Normal: Extremities, Normal: Abdomen, Normal: Skin and Normal: Neurological Plan Diagnosis/Plan: Unchanged (EGD to assess the anatomy of the sleeve. Risks of bleeding and perforation were discussed with the patient and she is in agreement with the plan.) I have reviewed the history and physical and performed a pertinent physical examination on my patient. No changes have occurred unless specified. Time Spent With Patient Time: Total time managing care of this patient today ____ minutes.
--- NOTE | 2023-10-02 09:38 | PM.OP ---
Brief Operative Note Date of Service: 10/02/23 Pre-op diagnosis: s/p sleeve gastrectomy Post-op diagnosis: same Procedure: PROCEDURE DATE: 10/02/2023 PREOPERATIVE DIAGNOSIS: s/p sleeve gastrectomy POSTOPERATIVE DIAGNOSIS: ?Same as above. Normal post-sleeve endoscopy PROCEDURE: [id number] with biopsies Surgeon: ?Juan Gee M.D.. Ph.D. Drilling Field Operator: None ? Anesthesia: IV sedation Estimated blood loss: ?Minimal FINDINGS AND PROCEDURE: ? OPERATIVE INDICATIONS: ?The patient is a 33 year old female known to me who underwent a laparoscopic sleeve gastrectomy. The patient had remarkable weight loss so far and had a completely uneventful recovery.? Based on this information I recommended an upper endoscopy to rule out esophagitis after sleeve gastrectomy. Risks and complications of the surgery were discussed with the patient in advance particularly the possibility of perforation or bleeding that may require surgical intervention. The patient understood the risks and was in agreement with the plan. ? PROCEDURE: After informed consent was obtained by the patient, the patient was ?transferred to the Operating Room and was placed in the supine position.? After successful induction of IV sedation, a mouth block was inserted and the patient was placed in the left lateral decubitus position. An upper endoscopy was performed next, the oropharynx and esophagus appeared within the normal limits. There was no hiatal hernia. The z-line was smooth. Two biopsies were obtained from the distal esophagus 2-3 cm proximal to the GE junction and two additional biopsies from the GE junction. The sleeve was entered and it appeared to be of normal size. There was no gastritis. There was no stricture or ulcer. Biopsies were obtained from the proximal sleeve as well as the antrum. No significant bleeding was noted from any of the biopsy sites. The scope was then advanced into the duodenum which appeared to be normal as well. At that point the duodenum ?and the sleeve were decompressed and the scope was withdrawn from the patient's mouth. The patient extubated and was transferred in stable condition to the Recovery Room for further care. I was present and performed all steps of the procedure. There were no residents to assist with this case. Juan Gee M.D., Ph.D. Surgeon: Raheel Gee MD Anesthesia: MAC Was an Drilling Field Operator used for this Procedure?: No Estimated blood loss (mL): 0 IV fluids (mL): 400 Urine output (mL): 0 (No Pollock to record output) Pathology: other (1) antrum x1, 2) proximal sleeve/gastric fundus x1, 3) EGJ x2, 4) distal esophagus x2) Condition: stable Disposition: PACU
[2023-10-02 09:40] VITALS: BP 97/60; PULSE 101; RESP 16; TEMP 36.6; O2SAT 99
[2023-10-02 09:55] VITALS: BP 122/74; PULSE 105; RESP 16; O2SAT 100
== END 2023-10-02 10:36 | disposition home or self-care (01) ==
PROVIDERS: Anesthesiology; PCP Nurse Practitioner Family; Visit Provider Surgery
PROC: 0DJ08ZZ Inspection of Upper Intestinal Tract, Via Natural or Artificial Opening Endoscopic (ICD-10-PCS; CPT 43235; principal; 2023-10-02 08:50)
DX: K91.1 Postgastric surgery syndromes (principal); Z98.84 Bariatric surgery status; J45.909 Unspecified asthma, uncomplicated; E50.9 Vitamin A deficiency, unspecified; E51.9 Thiamine deficiency, unspecified; E78.5 Hyperlipidemia, unspecified; E11.9 Type 2 diabetes mellitus without complications; E66.9 Obesity, unspecified; Z68.30 Body mass index [BMI] 30.0-30.9, adult; Z79.899 Other long term (current) drug therapy
CPT/HCPCS: 43239; 81025; 88305; 88313; 88342; J1100; J1596; J2250; J2704

== ENCOUNTER → 2023-10-02 07:26 | Outpatient (BNV) | payer BC, SELFPAY | PROVIDERS: PCP Nurse Practitioner Family; Visit Provider Surgery | DX: K91.1 Postgastric surgery syndromes (principal) | CPT/HCPCS: 43239 ==

== ENCOUNTER 2023-11-14 09:00 | Outpatient (AMB) | payer BC, SELFPAY ==
--- NOTE | 2023-11-14 08:52 | A.OFFVIS_ITS ---
VS Expanded 11/14/23 08:53 Height 5 ft Weight 134 lb 8 oz BMI 26.3 Body Fat % 30.5 Body Fat Mass 41.2 Fat Free Mass 93.6 Visceral Fat Rating 9 Body Water % 47.7 Body Water Mass 64.4 Muscle Mass/Score 88 Basal Metabolic Rate/Score 1,295 Intake Visit Reasons: (TV) PO LSG 03/15/23 Monomer Purification Operator Required: No Allergies No Known Allergies Allergy (Verified 09/14/23 09:22) Medication List - Last Reconciled 11/14/23 by MORGAN Quintana fluticasone propionate 110 mcg/actuation (Flovent HFA) 1 puff inhalation Q12H lisdexamfetamine (Vyvanse) 30 mg PO DAILY multivitamin 1 tab PO DAILY propranolol 10 mg PO TID PRN vitamin A palmitate 3,000 mcg PO DAILY 90 days HPI Comments Details: This?a?33?yo female who is s/p LSG without hiatal hernia repair on?03/15/2023. Presents for 7 month post op visit. Weight today is 134.8 pounds, with a BMI of 26.3. There has been a 71.2 pound weight loss,(initial weight 206 pounds) since starting the program on 01/16/2023 reflecting a 34.5 % total body weight loss and a weight loss of 59.6 pounds since surgery (operative weight 194.4 pounds) reflecting a 30.6 % TBWL since surgery. No complaints of nausea, emesis, abdominal pain or reflux. Reports infrequent but normal bowel movements every 1- 2 days. Taking celebrate mvi. She feels good with her weight loss. Dr Fatima changed her meal plan Present meal plan includes: 2 isopure infusion 1/2 scoop mixed w 8 oz water, 630-830, 1-3 wolof yogurt w 1/2 scoop premier protein 10-12 another yogurt 4-5 meal 7 pm 6 forks protein and 6 forks veg drinking 64 oz Exercise routine includes: treadmill and elliptical at home, 6-7 days per week 300-400 vanessa [facility] Medical History BMI 37.0-37.9, adult Pre-op evaluation BMI 39.0-39.9,adult Hyperlipidemia Constipation Asthma DJD (degenerative joint disease) GERD (gastroesophageal reflux disease) Non-insulin dependent type 2 diabetes mellitus Morbid obesity Surgical History S/P laparoscopic sleeve gastrectomy Hx of laparoscopic partial gastrectomy History of esophagogastroduodenoscopy (EGD) History of removal of skin mole (~06/2007) Hx of LASIK (~12/2022) Family History Mother Ovarian cancer Breast cancer Social History Household Members: Family Household Members Other:: minor son Housing: House Are you a primary patient care to a significant other at home: Yes Do you presently have visiting nurse or other home services: No Alcohol intake: never Patient Tobacco Use Status: Never used Tobacco Telehealth Telehealth Telehealth Platform: Telephone Location of provider rendering services: practice address Location of patient: address on file Patient Identification confirmed using: Name, : Yes Telehealth method: voice only Patient verbally consented to treatment: Yes Patient verbally consented to billing insurance company: Yes Patient informed of any privacy concerns related to visit: Yes Minutes spent on Phone/Video with Pt.: 15 Assessment & Plan Assessment & Plan (1) S/P laparoscopic sleeve gastrectomy: Code(s): Z98.84 - Bariatric surgery status Category: Surgical Plan: Patient is doing well overall. She is satisfied with her meal plan which was adjusted by Dr. Gee. She is satisfied with her weight loss and wishes to continue to pursue a healthy weight. She will continue her exercise plan as well. She will incorporate yoga once a week. She will continue to text her weight weekly and follow-up in the office as scheduled.
[2023-11-14 08:53] VITALS: BMI 26.3
== END 2023-11-14 09:16 | disposition home or self-care (01) ==
LOC: HO.HBS 09:11
PROVIDERS: PCP Nurse Practitioner Family; Visit Provider Physician Assistant Surgical
DX: E66.3 Overweight (principal); Z68.29 Body mass index [BMI] 29.0-29.9, adult; Z90.3 Acquired absence of stomach [part of]; Z98.84 Bariatric surgery status
CPT/HCPCS: 99213

== ENCOUNTER → 2023-11-14 09:00 | Outpatient (BNVA) | payer BC, SELFPAY | PROVIDERS: PCP Nurse Practitioner Family; Visit Provider Physician Assistant Surgical | DX: Z98.84 Bariatric surgery status (principal); E60 Dietary zinc deficiency; E51.9 Thiamine deficiency, unspecified; E50.9 Vitamin A deficiency, unspecified; E55.9 Vitamin D deficiency, unspecified; E78.5 Hyperlipidemia, unspecified; E11.9 Type 2 diabetes mellitus without complications ==

== ENCOUNTER 2024-01-29 13:29 | Outpatient (AMB) | payer BC, SELFPAY ==
--- NOTE | 2024-01-29 09:29 | A.OFFVIS_ITS ---
VS Expanded 01/29/24 09:30 Height 5 ft Weight 120 lb 1 oz BMI 23.4 Body Fat % 25.9 Body Fat Mass 31.1 Fat Free Mass 89 Visceral Fat Rating 6 Body Water % 50.9 Body Water Mass 61.1 Muscle Mass/Score 83.7 Basal Metabolic Rate/Score 1,234 Intake Visit Reasons: (TV) PO LSG 03/15/23 Technology Solutions Architect Required: No Allergies No Known Allergies Allergy (Verified 09/14/23 09:22) Medication List - Last Reconciled 01/29/24 by MORGAN Quintana fluticasone propionate 110 mcg/actuation (Flovent HFA) 1 puff inhalation Q12H lisdexamfetamine (Vyvanse) 30 mg PO DAILY multivitamin 1 tab PO DAILY propranolol 10 mg PO TID PRN vitamin A palmitate 3,000 mcg PO DAILY 90 days HPI Comments Details: This?a?33?yo female who is s/p LSG without hiatal hernia repair on?03/15/2023. Presents for 10 month post op visit. Weight today is 120.1 pounds, with a BMI of 23.4. There has been a 85.9 pound weight loss,(initial weight 206 pounds) since starting the program on 01/16/2023 reflecting a 41.6 % total body weight loss and a weight loss of 74.3 pounds since surgery (operative weight 194.4 pounds) reflecting a 38.2 % TBWL since surgery. No complaints of nausea, emesis, abdominal pain or reflux. Reports infrequent but normal bowel movements every 1- 2 days. Taking celebrate mvi. She feels good with her weight loss. Yoga has increased her flexibility. She is happy with her meal plan and feels great, energy up and she is very satisfied She has excess skin of her abdomen. She does get a rash intermittently, once pe r month. She has been using OTC foot powder and has had increase in hygiene. She has also changed her underwear type to act as a barrier. Present meal plan includes: 2 isopure infusion 1/2 scoop mixed w 8 oz water, 630-830, 1-3 estonian yogurt w 1/2 scoop premier protein 10-12 another yogurt 4-5 meal 7 pm 6 forks protein and 6 forks veg drinking 64 oz Exercise routine includes: treadmill and elliptical at home, 6-7 days per week 300-400 vanessa yoga every other day [facility] Medical History BMI 37.0-37.9, adult Pre-op evaluation BMI 39.0-39.9,adult Hyperlipidemia Constipation Asthma DJD (degenerative joint disease) GERD (gastroesophageal reflux disease) Non-insulin dependent type 2 diabetes mellitus Morbid obesity Surgical History S/P laparoscopic sleeve gastrectomy Hx of laparoscopic partial gastrectomy History of esophagogastroduodenoscopy (EGD) History of removal of skin mole (~06/2007) Hx of LASIK (~12/2022) Family History Mother Ovarian cancer Breast cancer Social History Household Members: Family Household Members Other:: minor son Housing: House Are you a primary patient care secretary to a significant other at home: Yes Do you presently have visiting nurse or other home services: No Alcohol intake: never Patient Tobacco Use Status: Never used Tobacco Telehealth Telehealth Telehealth Platform: Telephone Location of provider rendering services: practice address Location of patient: address on file Patient Identification confirmed using: Name, : Yes Telehealth method: voice only Patient verbally consented to treatment: Yes Patient verbally consented to billing insurance company: Yes Patient informed of any privacy concerns related to visit: Yes Minutes spent on Phone/Video with Pt.: 15 Assessment & Plan Assessment & Plan (1) S/P laparoscopic sleeve gastrectomy: Code(s): Z98.84 - Bariatric surgery status Category: Medical Plan: Patient is doing very well. She has achieved a healthy weight. She has no complaints other than excess skin of her abdomen. She continues with barriers and hygiene to keep her skin dry. She does get a rash intermittently, perhaps once per month. She will text me if it does not resolve on her own [id number] remedies and we will prescribe clotrimazole. Return to the office for 1 year postop appointment
[2024-01-29 09:30] VITALS: BMI 23.4
--- OUTSIDE RECORDS SUMMARY | 2024-01-29 13:30 | XMS_ITS ---
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 Assessments Encounter Date Diagnosis (ICD Code) Assessment Notes Treatment Notes Treatment Clinical Notes Section Notes 01/20/2024 Nontoxic single thyroid nodule (ICD-10 - E04.1) Plan Of Treatment Pending Test Test Name Order Date US Thyroid 01/20/2024 Next Appt Details Provider Name:Shanna Aguayo , 03/05/2024 09:00:00 AM, [address] [place] [address], [phone], Provider Name:Shanna Akua Aguayo , 06/04/2024 01:00:00 PM, [address] [place] [address], [phone], Progress Notes * Mary RICHARDSON MDOB:02/1989 (34 yo F)Acc No.[id number]:01/20/2024 Patient:?Mary RICHARDSON :1990???Age:34 Y???Sex:Female Address:[address] [place], [address] Subjective: * Chief Complaints: * ???Results * Medical History:? * Surgical History:? * Hospitalization/Major Diagno stic Procedure:? * Medications:? Objective: * Vitals:? Past Vitals:* 01/17/2024 Temp:98.3F, HR:89/min, BP:12 2/68mm Hg, Wt:146lbs, BMI:28.04Index, Ht: 60.5 in, Oxygen sat %:98% * 11/08/2023 Temp:97.2F, HR:71/min, BP:11 6/68mm Hg, Wt:155.6lbs, BMI:29.89Index, Ht: 60.5 in, Oxygen sat %:99% * 11/01/2023 Temp:98.2F, HR:96/min, BP:11 8/68mm Hg, Wt:154.3lbs, BMI:29.64Index, Ht:60.5in, Oxygen sat %:99% * Physical Examination:? Assessment: * Assessment: 1.?Nontoxic single thyroid n odule - E04.1 (Primary)??? Plan: * Treatment: * Procedure Codes:? * true * Date:? Generated for Anika singh/Manjula/Aric on:?01/29/2024 01:30 PM EST
--- OUTSIDE RECORDS SUMMARY | 2024-01-29 13:30 | XMS_ITS ---
Author Organization Monica Vegas MD Address [address] [phone] Care Team Providers Care Senior Marketing Data Analyst Name Role Phone Shanna Aguayo Primary Care Provider MONICA VEGAS MD Unavailable Unavailable Results Component Value Reference Range Notes Thyroid Peroxidase (TPO) Ab- [id number] Reviewed date:01/20/2024 09:01:32 AM Interpretation: Performing Lab:[facility] [place], [address] [facility], Phone - [phone], Director - MDRichadry Notes/Report: Thyroid Peroxidase (TPO) Ab 11 0-34 IU/mL Thyroglobulin Antibody-[id number] 5 Reviewed date:01/20/2024 09:01:32 AM Interpretation: Performing Lab:[facility] [place], [address] [facility], [place], Phone - [phone], Director - MDRichadry Notes/Report: Thyroglobulin Antibody <1.0 0.0-0.9 IU/mL Thyroglobulin Antibody measured by [facility] [place] [employer] . It should be noted that the presence of thyroglobulin antibodies may not be pathogenic nor diagnostic, especially at very low levels. The assay home management supervisor has found that four percent of individuals without evidence of thyroid disease or autoimmunity will have positive TgAb levels up to 4 IU/mL. Triiodothyronine (T3), Free- [id number] Reviewed date:01/20/2024 09:01:32 AM Interpretation: Performing Lab:[facility] [place], [address] [facility], Phone - [phone], Director - MDJodry Notes/Report: Triiodothyronine (T3), Free 3.0 2.0-4.4 pg/mL TSH reflex to C4H-[id number] Reviewed date:01/20/2024 09:01:32 AM Interpretation: Performing Lab:[facility] [place], [address], [place], Phone - [phone], Director - Robb Notes/Report: TSH 0.601 0.450-4.500 uIU/mL REASON FOR VISIT labs Problems Problem Type SNOMED Code ICD Code Onset Dates Problem Status W/U Status Risk Notes Problem Acute thyroiditis (087952383) Acute thyroiditis (E06.0) Active confirmed Encounters Encounter Location Date Provider Diagnosis Monica Vegas MD [address] [phone] 01/18/2024 Shanna Aguayo Acute thyroiditis E06.0 Assessments Encounter Date Diagnosis (ICD Code) Assessment Notes Treatment Notes Treatment Clinical Notes Section Notes 01/18/2024 Acute thyroiditis (ICD-10 - E06.0) Plan Of Treatment Next Appt Details Provider Name:Shanna Aguayo , 03/05/2024 09:00:00 AM, [address] [place] [address], [phone], Provider Name:Shanna Aguayo , 06/04/2024 01:00:00 PM, [address] [place] [address], [phone], Progress Notes * Mary RICHARDSON MDOB:02/1989 (34 yo F)Acc No.[id number]:01/18/2024 Patient:?Mary RICHARDSON :1990???Age:34 Y???Sex:Female Address:[address] [place] [address], [address] Subjective: * Chief Complaints: * ???Labs * Medical History:? * Surgical History:? * [...] %:99% * Physical Examination:? Assessment: * Assessment: 1.?Acute thyroiditis - E06.0 (Primary)??? Plan: * Treatment: ? Value Reference Range ?Thyroid Peroxidase (TPO) Ab 11 0-34 - IU/mL * This lab was reviewed by Bebeto Aguayo on 01/20/2024 at 09:01 AM EST ?LAB: Thyroglobulin Antibody-[id number]* ? Value Reference Range ?Thyroglobulin Antibody <1.0 0.0-0.9 - IU/mL * This lab was reviewed by Bebeto Aguayo on 01/20/2024 at 09:01 AM EST ?LAB: Triiodothyronine (T3), Free-[id number]* ? Value Reference Range ?Triiodothyronine (T3), Free 3.0 2.0-4.4 - pg/mL * This lab was reviewed by Bebeto Aguayo on 01/20/2024 at 09:01 AM EST ?LAB: TSH reflex to [id number]* ? Value Reference Range ?TSH 0.601 0.450-4.500 - u IU/mL * This lab was reviewed by Bebeto Aguayo on 01/20/2024 at 09:01 AM EST * Procedure Codes:? * true * Date:? Generated for Printi ng/Manjula/eTransmitting on:?01/29/2024 01:30 PM EST
--- OUTSIDE RECORDS SUMMARY | 2024-01-29 13:31 | XMS_ITS ---
Author Organization [facility] Address [address] [facility] [place] [address] Care Team Providers Care Body Repairer Name Role Phone JONY STEWART Primary Care Provider Jnoy Stewart Unavailable [phone] REASON FOR VISIT US Orders Needed Encounters Encounter Location Date Provider Diagnosis [facility] [address] [place] [address] 02/06/2023 JONY STEWART Leg pain, right M79.604 and Right leg swelling M79.89 Assessments Encounter Date Diagnosis (ICD Code) Assessment Notes Treatment Notes Treatment Clinical Notes Section Notes 02/06/2023 Leg pain, right (ICD-10 - M79.604) 02/06/2023 Right leg swelling (ICD-10 - M79.89) Plan Of Treatment Pending Test Test Name Order Date us right lower extremity 02/06/2023 Progress Notes * Mary RICHARDSON MDOB:02/1989 (33 yo F)Acc No.[id number]:02/06/2023 CONFIDENTIAL ENCOUNTER Patient:?Mary RICHARDSON :1990???Age:33 Y???Sex:Female Address:[address] [place], [place] [address], [address] Subjective: * Chief Complaints: * ???US Orders Needed * Medical History:? * Surgical History:? * Hospitalization/Major Diagno stic Procedure:? * Medications:? Objective: * Vitals:? * Physical Examination:? Assessment: * Assessment: 1.?Leg pain, right - M79.604 (Primary)?2.?Right leg swelling - M79.89? Plan: * Treatment: 2.?Right leg swelling?Imaging: us right lower extremity * Procedure Codes:? * true * Date:? Generated for Anika singh/Manjula/Kekeitting on:?01/29/2024 01:30 PM EST
--- OUTSIDE RECORDS SUMMARY | 2024-01-29 13:31 | XMS_ITS | Continuity of Care Document ---
Author Organization [facility] Address [address] [place] [address]- Care Team Providers Care Er Physician Name Role Phone Dede LINARES, Shanna Pascal Primary Care Physician Encounter [facility] Date(s): 12/07/23 - 01/25/[address] [address] Attending Physician: Shanna Aguayo NP Admitting Physician: Shanna Aguayo NP Referring Physician: Shanna Aguayo NP Encounter Type: Pre-Outpt Allergies, Adverse Reactions, Alerts Substance Criticality Severity Reaction Reaction Severity Status Other Environmental Allergy 1 Active 1Dust, Pollen, Seasonal Immunizations Given and Recorded Vaccine Date Status Refusal Reason influenza virus vaccine, inactivated 11/26/21 Jase rded influenza virus vaccine, inactivated 02/18/21 Jase rded influenza virus vaccine, inactivated 12/05/18 Jase rded influenza virus vaccine, inactivated 11/05/13 Give n influenza virus vaccine, inactivated 1 11/14/11 Gi onel [id number] 12y+ bivalent booster vax 11/26/21 Recorded SARS-CoV-2 mRNA (qmowlfy-chwv-osytx) vax 03/03/21 Recorded SARS-CoV-2 (COVID-19) mRNA BNT-162b2 vac 09/20/20 Recorded SARS-CoV-2 (COVID-19) mRNA BNT-162b2 vac 08/30/20 Recorded Varicella Virus Vaccine 01/18/18 Given Varicella Virus Vaccine 12/07/17 Given tetanus/diphtheria/pertussis, acel(Tdap) 12/07/17 Given tetanus/diphtheria/pertussis, acel(Tdap) 06/26/06 Recorded Influenza Vaccine (oldterm) 02/15/09 Given influ virus [...] 5Admin Note: TDAP 6Admin Note: menactra Medications Carafate 1 gm/10 ml oral suspension 10 mL = 1 Gm, By Mouth, 3 times a day before meals and bedtime, 0 Refills, Maintenance, 03/22/23 1:07:00 PM EST, Partial fill upon patient request if the prescription is for a schedule II opioid drug. Start Date: 03/22/23 Status: Ordered Repeat number: 1 Liletta 52 mg intrauterine device 1 each = 52 mg, Once, 0 Refills, Maintenance, 04/27/23 3:13:00 PM EDT, Partial fill upon patient request if the prescription is for a schedule II opioid drug. Start Date: 04/27/23 Status: Ordered Repeat number: 1 Liletta 52 mg intrauterine device 1 each = 52 mg, Once, Inserted: 04/27/[address] [facility]: 2763-0952-91 Lot #: [id number] Exp: 05/2026, 0 Refills,Maintenance, 04/27/23 3:13:00 PM EDT, Partial fill upon patient request if the prescription is for aschedule II opioid drug. Start Date: 04/27/23 Status: Ordered Repeat number: 1 pantoprazole 40 mg oral delayed release tablet 1 tablet = 40 mg, By Mouth, Daily, 0 Refills, Maintenance, 03/22/23 1:06:00 PM EST Start Date: 03/22/23 Status: Ordered Repeat number: 1 Problem List Condition Confirmation Course Effective Dates Status H ealth Status Informant Anemia 1 Confirmed Active Anxiety 2 Confirmed Active Contraceptive management Confirmed Active LGSIL on Pap smear of cervix Confirmed Active Obese class II Confirmed Active Obesity Confirmed Active Encounter for well woman exam with routine gynecological exam Confirmed Active Prediabetes Confirmed Active Vitamin D deficiency Confirmed Active 1h/o iron deficiency 2sees Ronda, counselor at [facility] for [facility] Social History Social History Type Response Smoking Status Never smoker entered on: 04/02/13 Sex Sex Representation Female (finding) Patient Care team information Care Team Personnel Name: Dede LINARES, Shanna Pascal Position: [facility]O Associate Professional Member Role: PCP Address: [address] [place] [address] [place] [address]- [place] Tele[employer]: Name: Rosalba Lee MD Position: [facility] PEANUT BLANCHER Member Role: Lifetime PEANUT BLANCHER Physician Address: [address] [place], [place] [address]s [facility] Don[place] [address]- Telecom: Care Team Related Persons Name: LOURDES RAYA Name: BANG FOWLER Insurance Providers Guarantor name: FRANCES RICHARDSON Health Plan Information #: 2 Payer: [facility] Member Number: [id number] Policy Number: NA Group Number: [id number] Health Plan Information #: 3 Payer: [employer] Member Number: [id number] Policy Number: NA Group Number: NA Health Plan Information #: 1 Payer: [employer] Member Number: [id number] Policy Number: NA Group Number: [id number]
--- OUTSIDE RECORDS SUMMARY | 2024-01-29 13:31 | XMS_ITS ---
Author Organization [facility] Address [address] [facility] [facility] [place] [address] Care Team Providers Care Supervisor Winding Department Name Role Phone JONY STEWART Primary Care Provider Jony Stewart Unavailable [phone] Results Component Value Reference Range Notes US Duplex Venous Study RT Reviewed date:02/10/2023 01:01:14 PM Interpretation: Performing Lab: Notes/Report: Original Ordering Provider: JONY STEWART MD [facility] Encounters Encounter Location Date Provider Diagnosis [facility] [address] [place] [address] 02/06/2023 JONY STEWART Leg pain, right M79.604 and Right leg swelling M79.89 Assessments Encounter Date Diagnosis (ICD Code) Assessment Notes Treatment Notes Treatment Clinical Notes Section Notes 02/06/2023 Leg pain, right (ICD-10 - M79.604) 02/06/2023 Right leg swelling (ICD-10 - M79.89) Plan Of Treatment No Information Progress Notes * Mary RICHARDSON MDOB:02/1989 (34 yo F)Acc No.[id number]:02/06/2023 Patient:?Mary RICHARDSON :1990???Age:33 Y???Sex:Female Address:[address] [place] [address], [address] Subjective: * Chief Complaints: * ??? * Medical History:? * Surgical History:? * Hospitalization/Major Diagno stic Procedure:? * Medications:? Objective: * Vitals:? * Physical Examination:? Assessment: * Assessment: 1.?Leg pain, right - M79.604 ???2.?Right leg swelling - M79.89??? Plan: * Treatment: 2.?Right leg swelling?Imaging: US Duplex Venous Study RT (Performed Date - 02/07/2023) * Procedure Codes:? * * Date:?
--- OUTSIDE RECORDS SUMMARY | 2024-01-29 13:31 | XMS_ITS ---
Author Organization [facility] Address [address] [facility] [address] [address] [place] [address] Care Team Providers Care Patent Chemist Name Role Phone JONY STEWART Primary Care Provider [phone] Jony Stewart Unavailable [phone] REASON FOR VISIT Transferred to [facility] Encounter Location Date Provider Diagnosis [facility] [address] [facility] [address] [place] [address] 01/09/2023 JONY STEWART Plan Of Treatment No Information Progress Notes * Mary RICHARDSON MDOB:02/1989 (33 yo F)Acc No.[id number]:01/09/2023 Patient:?Mary Richardson :1990???Age:33 Y???Sex:Female Address:[address] [place] [address], [address] * true * Date:? Generated for Printi ng/Fajadeg/eTransmitting on:?01/29/2024 01:31 PM EST
--- OUTSIDE RECORDS SUMMARY | 2024-01-29 13:31 | XMS_ITS | Patient Health Record ---
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 Name Role Phone Shanna Aguayo Primary Care Provider MONICA VEGAS MD Unavailable Unavailable Monica Vegas Unavailable [phone] Allergies No Known Allergies Results Component Value Reference Range Notes EKG Reviewed date:01/18/2024 10:41:37 AM Interpretation: Performing Lab: Notes/Report: ECGDiastolicBP 0 ECGHr 106 ECGPRInterval 130 ECGPWaveAxis 41 ECGQRSDuration 81 ECGQrsWaveAxis 15 ECGQTcInterval 428 ECGQTInterval 348 ECGSystolicBP 0 ECGTWaveAxis 35 RR_DiastolicBP 0 RR_MaxRRInterval 0 RR_MeanHR 0 RR_MeanRRInterval 0 RR_MinRRInterval 0 RR_NumBeats 0 RR_NumNormalBeats 0 RR_SystolicBP 0 Thyroid Peroxidase (TPO) Ab- [id number] Reviewed date:01/20/2024 09:01:32 AM Interpretation: Performing Lab:[facility] [place], [address] [facility], [place], Phone - [phone], Director - Robb Notes/Report: Thyroid Peroxidase (TPO) Ab 11 0-34 IU/mL Thyroglobulin Antibody-[id number] 5 Reviewed date:01/20/2024 09:01:32 AM Interpretation: Performing Lab:[facility] [place], [address] [facility] [address], [place], Phone - [phone], Director - Robb Notes/Report: Thyroglobulin Antibody <1.0 0.0-0.9 IU/mL Thyroglobulin Antibody measured by [facility] Ra[employer] . It should be noted that the presence of thyroglobulin antibodies may not be pathogenic nor diagnostic, especially at very low levels. The assay program and research coordinator has found that four percent of individuals without evidence of thyroid disease or autoimmunity will have positive TgAb levels up to 4 IU/mL. Triiodothyronine (T3), Free- [id number] Reviewed date:01/20/2024 09:01:32 AM Interpretation: Performing Lab:[facility] [place], [address] [place] [address], Phone - [phone], Director - MDJodry Notes/Report: Triiodothyronine (T3), Free 3.0 2.0-4.4 pg/mL TSH reflex to [id number] Reviewed date:01/20/2024 09:01:32 AM Interpretation: Performing Lab:[facility] [place], [address] [place] [address], Phone - [phone], Director - MDJodry Notes/Report: TSH 0.601 0.450-4.500 uIU/mL US Breast Bilateral Limited Reviewed date:05/10/2023 11:17:00 AM Interpretation: Performing Lab: Notes/Report: PROCEDURE: MM Digital Mammo Bilateral, US Breast Bilateral Limited INDICATION: Bilateral palpable abnormalities COMPARISON: None TECHNIQUE: Digital diagnostic mammogram consisting of CC and MLO views of the breast with 3D tomosynthesis and CAD In addition, targeted high-resolution ultrasound of the breasts was performed DENSITY: There are scattered areas of fibroglandular density. FINDINGS: 0.5 cm round isodense mass with well-circumscribed borders in the superior aspect to upper outer quadrant of the left breast approximately 3 to 4 cm from the nipple. Left breast ultrasound demonstrates a 0.6 cm hypoechoic wider than tall mass with well-circumscribed borders at the 12:00 position 3 cm from the nipple. This mass corresponds to the mammographic finding. Bilateral breast ultrasounds in the areas of clinical concern are normal. IMPRESSION: Mass at the 12:00 position in the left breast is considered suspicious. Ultrasound-guided biopsy is recommended. RECOMMENDATION: Ultrasound guided core biopsy left breast BI-RADS: 4 (Suspicious) Lay letter mailed to patient WSN: [id number] Ordering Physician: Shanna Aguayo Dictated By: Nicole SPRING, Carlos Camacho PROCEDURE: MM Digita l Mammo Bilateral, US Breast Bilateral Limited INDICATION: Bilatera l palpable abnormalities COMPARISON: None TECHNIQUE: Digital diagnostic mammogram consisting of CC and MLO views of the breast with 3D tomosynthesis and CAD In addition, targeted high-resolution ultrasound of the breasts was performed DENSITY: There are scattered areas of fibroglandular density. FINDINGS: 0.5 cm rou nd isodense mass with well-circumscribed borders in the superior aspect to upper outer quadrant of the left breast approximately 3 to 4 cm from the nipple. Left breast ultrasound demonstrates a 0.6 cm hypoechoic wider than tall mass with well-circumscribed borders at the 12:00 position 3 cm from the nipple. Thi s mass corresponds to the mammographic finding. Bilateral breast ultrasounds in the areas of clinical concern are normal. IMPRESSION: Mass at the 12:00 position in the left breast is considered suspicious. Ultrasound-guided biopsy is recommended. RECOMMENDATION: Ultrasound guided core biopsy left breast BI-RADS: 4 (Suspicious) Lay letter mailed to patient WSN: [id number] Ordering Physician: Shanna Aguayo TSH reflex to [id number] Reviewed date:01/18/2024 10:41:37 AM Interpretation: Performing Lab:[facility], [address] [facility], Phone - [phone], Director - Carlosy Notes/Report: TSH 0.426 0.450-4.500 uIU/mL Comp. Metabolic Panel (14)-3 22022 Reviewed date:01/18/2024 10:41:36 AM Interpretation: Performing Lab:[facility] [place], [address] [facility], [place], Phone - [phone], Director - Carlosy Notes/Report: Glucose 81 70-99 mg/dL BUN 11 6-20 mg/dL Creatinine 0.79 0.57-1.00 mg/dL eGFR 100 >59 mL/min/1.73 BUN/Creatinine Ratio 14 9-23 Sodium 141 134-144 mmol/L Potassium 4.3 3.5-5.2 mmol/L Chloride 105 96-106 mmol/L Carbon Dioxide, Total 21 20-29 mmol/L Calcium 9.1 8.7-10.2 mg/dL Protein, Total 7.2 6.0-8.5 g/dL Albumin 4.1 3.9-4.9 g/dL Globulin, Total 3.1 1.5-4.5 g/dL Bilirubin, Total 0.3 0.0-1.2 mg/dL Alkaline Phosphatase 64 44-121 IU/L AST (SGOT) 14 0-40 IU/L ALT (SGPT) 8 0-32 IU/L CBC With Differential/Platel et-[id number] Reviewed date:01/18/2024 10:41:36 AM Interpretation: Performing Lab:[facility], [address] [facility], Phone - [phone], Director - MDRioy Notes/Report: WBC 8.7 3.4-10.8 x10E3/uL RBC 4.15 3.77-5.28 x10E6/uL Hemoglobin 12.7 11.1-15.9 g/dL Hematocrit 38.7 34.0-46.6 % MCV 93 79-97 fL MCH 30.6 26.6-33.0 pg MCHC 32.8 31.5-35.7 g/dL RDW 12.2 11.7-15.4 % Platelets 288 150-450 x10E3/uL Neutrophils 59 Not Estab. % Lymphs 30 Not Estab. % Monocytes 7 Not Estab. % Eos 4 Not Estab. % Basos 0 Not Estab. % Neutrophils (Absolute) 5.1 1.4-7.0 x10E3/uL Lymphs (Absolute) 2.6 0.7-3.1 x10E3/uL Monocytes(Absolute) 0.6 0.1-0.9 x10E3/uL Eos (Absolute) 0.4 0.0-0.4 x10E3/uL Baso (Absolute) 0.0 0.0-0.2 x10E3/uL Immature Granulocytes 0 Not Estab. % Immature Grans (Abs) 0.0 0.0-0.1 x10E3/uL Ferritin-[id number] Reviewed date:01/18/2024 10:41:36 AM Interpretation: Performing Lab:[facility], [address] [facility], [place], Phone - [phone], Director - Carlosy Notes/Report: Ferritin 210 15-150 ng/mL Vitamin [id number] Reviewed date:01/18/2024 10:41:36 AM Interpretation: Performing Lab:[facility], [address] [place] [address], Phone - [phone], Director - Robb Notes/Report: Vitamin B12 293 273-9758 pg/mL Iron and TIBC-[id number] Reviewed date:01/18/2024 10:41:36 AM Interpretation: Performing Lab:[facility] [place], [address] [facility] [place], Phone - [phone], Director - Robb Notes/Report: Iron Bind.Cap.(TIBC) 243 250-450 ug/dL UIBC 183 131-425 ug/dL Iron 60 27-159 ug/dL Iron Saturation 25 15-55 % PDF Report Reviewed date:06/03/2023 08:07:04 AM Interpretation: Performing Lab:[facility] [place], [address] [place] [address], Phone - [phone], Director - Robb Notes/Report: MM Digital Mammo Bilateral Reviewed date:05/10/2023 11:17:00 AM Interpretation: Performing Lab: Notes/Report: PROCEDURE: MM Digital Mammo Bilateral, US Breast Bilateral Limited INDICATION: Bilateral palpable abnormalities COMPARISON: None TECHNIQUE: Digital diagnostic mammogram consisting of CC and MLO views of the breast with 3D tomosynthesis and CAD In addition, targeted high-resolution ultrasound of the breasts was performed DENSITY: There are scattered areas of fibroglandular density. FINDINGS: 0.5 cm round isodense mass with well-circumscribed borders in the superior aspect to upper outer quadrant of the left breast approximately 3 to 4 cm from the nipple. Left breast ultrasound demonstrates a 0.6 cm hypoechoic wider than tall mass with well-circumscribed borders at the 12:00 position 3 cm from the nipple. This mass corresponds to the mammographic finding. Bilateral breast ultrasounds in the areas of clinical concern are normal. IMPRESSION: Mass at the 12:00 position in the left breast is considered suspicious. Ultrasound-guided biopsy is recommended. RECOMMENDATION: Ultrasound guided core biopsy left breast BI-RADS: 4 (Suspicious) Lay letter mailed to patient WSN: [id number] Ordering Physician: Shanna Aguayo Dictated By: Carlos Rivera MD PROCEDURE: MM Digita l Mammo Bilateral, US Breast Bilateral Limited INDICATION: Bilatera l palpable abnormalities COMPARISON: None TECHNIQUE: Digital diagnostic mammogram consisting of CC and MLO views of the breast with 3D tomosynthesis and CAD In addition, targeted high-resolution ultrasound of the breasts was performed DENSITY: There are scattered areas of fibroglandular density. FINDINGS: 0.5 cm rou nd isodense mass with well-circumscribed borders in the superior aspect to upper outer quadrant of the left breast approximately 3 to 4 cm from the nipple. Left breast ultrasound demonstrates a 0.6 cm hypoechoic wider than tall mass with well-circumscribed borders at the 12:00 position 3 cm from the nipple. Thi s mass corresponds to the mammographic finding. Bilateral breast ultrasounds in the areas of clinical concern are normal. IMPRESSION: Mass at the 12:00 position in the left breast is considered suspicious. Ultrasound-guided biopsy is recommended. RECOMMENDATION: Ultrasound guided core biopsy left breast BI-RADS: 4 (Suspicious) Lay letter mailed to patient WSN: [id number] Ordering Physician: Shanna Aguayo MM Stereotactic Breast Biops y Left Reviewed date:12/30/2023 07:31:01 PM Interpretation: Performing Lab: Notes/Report: A D D E N D U M as of: [id number] Final pathology for stereotactic biopsy of a mass in the left breast is now available. Pathology showed breast parenchyma with cystic apocrine metaplasia and focal stromal fibrosis. Imaging findings are concordant with pathologic findings. The biopsy site is marked with a top hat-shaped clip. Recommend follow-up left breast mammogram in 6 months to assess post biopsy stability. Findings and recommendations were discussed with the patient by Joi Mohan on 12/25/2023. WSN: [id number] Ordering Physician: Shanna Aguayo Dictated By: Xiang Zacarias MD PROCEDURE: Tomosynthesis-guided automated vacuum assisted biopsy of the left breast with marker placement and post-procedure verification of marker placement. INDICATION: Mammography performed at [facility] showed a suspicious mass in the medial left breast for which biopsy was recommended. TECHNIQUE: The procedure was explained to the patient who signed informed consent. The breast was placed in compression and 3D digital tomosynthesis was used to localize the lesion. The skin was cleansed and local anesthetic was administered. A small skin incision was made for access. Using a sterile biopsy tray and a 9-gauge vacuum assisted biopsy device, the probe was inserted and its position confirmed on repeat imaging. Samples were obtained and immersed in formalin. After sampling, a TOP HAT tissue marker clip was deployed into the region of biopsy. A left tomosynthesis was performed showing successful and accurate appearing clip placement. The probe was removed and compression was held. Hemostasis was achieved and a sterile pressure dressing was applied. The patient was given an ice pack. She was also given verbal as well as written instructions for care of the puncture site and dressing including steps that should be taken should she be concerned about a developing complication. Overall, the patient tolerated the procedure well and there was no evidence of immediate complication. IMPRESSION: 1. 3D digital tomosynthesis localization of left breast mass prior to biopsy. 2. Automated vacuum assisted biopsy of the lesion was performed. A sterile biopsy tray, 9-gauge vacuum assisted biopsy device, and vacuum canister were used. 3. Placement of tissue marker (TOP HAT -shaped clip) into the site of biopsy. 4. Digital left tomosynthesis showing successful and accurate appearing clip placement. 5.The targeted lesion measures 0.7 x 0.6 x 0.7 cm by mammogram. When the results of pathology are known, a supplemental report will be dictated. WSN: [id number] Ordering Physician: Shanna Aguayo Dictated By: Zak SPRING , Aditi Hamilton N D U M as o f: [id number] Final pathology for stereotactic biopsy of a mass in the left breast is now available. Pathology showed breast parenchyma with cystic apocrine metaplasia and focal stromal fibrosis. Imaging findings are concordant with pathologic findings. The biopsy site is marked with a top hat-shaped clip. Recommend follow-up left breas t mammogram in 6 months to assess post biopsy stability. Findings and recommendations were discussed with the patient by Joi Mohan on 12/25/2023. WSN: [id number] Ordering Physician: Shanna Aguayo PROCEDURE: Tomosynthesis-guided automated vacuum assisted biopsy of the left breast with marker placement and post-procedure verification of marker placement. INDICATION: Mammogra phy performed at [facility] showed a suspicious mass in the medial left breast for whic h biopsy was recommended. TECHNIQUE: The procedure was explained to the patient who signed informed consent. The breast was placed in compression and 3D digital tomosynthesis was used to localize the lesion. The skin was cleansed and local anesthetic was administered. A smal l skin incision was made for access. Using a sterile biopsy tray and a 9-gauge vacuum assisted biopsy device, the probe was inserted and its position confirmed o n repeat imaging. Samples were obtained and immersed in formalin. After sampling, a TOP HAT tissue marker clip was deployed into the region of biopsy. A left tomosynthesis was performed showing successful and accurate appearing c lip placement. The probe was remove d and compression was held. Hemostasis was achieved and a sterile pressure dressing was applied. The patient was given an ice pack. She was also given verba l as well as written instructions for care of the puncture site and dressing including steps that should be taken should she be concerned about a developing complication. Overall, the patient tolerated the procedure well and there was n o evidence of immediate complication. IMPRESSION: 1. 3D digital tomosynthesis localization of left breast mass prior to biopsy. 2. Automated vacuum assisted biopsy of the lesion was performed. A sterile biopsy tray, 9-gauge vacuum assisted biopsy device, and vacuum canister were used. 3. Placement of tiss ue marker (TOP HAT -shaped clip) into the site of biopsy. 4. Digital left tomosynthesis showing successful and accurate appearing clip placement. 5.The targeted lesio n measures 0.7 x 0.6 x 0.7 cm by mammogram. When the results of pathology are known, a supplemental report will be dictated. WSN: [id number] Ordering Physician: Shanna Aguayo PDF Report Reviewed date:05/17/2023 08:32:56 AM Interpretation: Performing Lab:[facility], [address] [place] [address], Phone - [phone], Director - Robb Notes/Report: Neisseria gonorrhoeae, JEFFERY-1 20385 Reviewed date:12/21/2023 09:37:12 AM Interpretation: Performing Lab:[facility] [address], [address], [place], Phone - [phone], Director - Ino Notes/Report: Clinical Information:SRC:UR SRC:UR Neisseria gonorrhoeae, JEFFERY Negative Negative Chlamydia trachomatis, JEFFERY-1 47129 Reviewed date:12/21/2023 09:37:12 AM Interpretation: Performing Lab:[facility] [address], [address], [place], Phone - [phone], Director - Ino Notes/Report: Clinical Information:SRC:UR SRC:UR Chlamydia trachomatis, JEFFERY Negative Negative NuSwab Vaginitis Plus (VG+)- 759585 Reviewed date:12/21/2023 09:37:12 AM Interpretation: Performing Lab:[facility], [address] [place] [address], [place], Phone - [phone], Director - Robb Notes/Report: Clinical Information:SRC:VA Megasphaera 1 was developed and its performance characteristics determined by [facility]. It has not been cleared or approved by the Food and Drug Administration. Test(s) 591535-Gkdsyfu albicans, JEFFERY; 136615-Bxheano glabrata, JEFFERY was developed and its performance characteristics determined by [facility]. It has not been cleared or approved by the Food and Drug Administration. Atopobium vaginae Low - 0 BVAB 2 Low - 0 Megasphaera 1 Low - 0 Calculate total score by adding the 3 individual bacterial vaginosis (BV) marker scores together. Total score is interpreted as follows: Total score 0-1: Indicates the absence of BV. Total score 2: Indeterminate for BV. Additional clinical data should be evaluated to establish a diagnosis. Total score 3-6: Indicates the presence of BV. Amanda albicans, JEFFERY Positive Negative Amanda glabrata, JEFFERY Negative Negative Trich vag by JEFFERY Negative Negative Chlamydia trachomatis, JEFFERY Negative Negative Neisseria gonorrhoeae, JEFFERY Negative Negative HCV Antibody RFX to Quant PC [id number] Reviewed date:12/21/2023 09:37:12 AM Interpretation: Performing Lab:[facility] [place], [address], [address], [place], Phone - [phone], Director - [facility] Notes/Report: Clinical Information:SRC:UR SRC:UR Clinical Information:SRC:UR SRC:UR HCV Ab Non Reactive Non Reactive Interpretation: Not infected with HCV unless early or acute infection is suspected (which may be delayed in an immunocompromised individual), or other evidence exists to indicate HCV infection. HIV Ab/p24 Ag with Reflex-08 3935 Reviewed date:12/21/2023 09:37:12 AM Interpretation: Performing Lab:[facility] [place], [address], [address], [place], Phone - [phone], Director - [facility] Notes/Report: Clinical Information:SRC:UR SRC:UR HIV Ab/p24 Ag Screen Non Reactive Non Reactive HIV-1/HIV-2 antibodies and HIV-1 p24 antigen were NOT detected. There is no laboratory evidence of HIV infection. HIV Negative [id number] Reviewed date:12/21/2023 09:37:12 AM Interpretation: Performing Lab:[facility], [address], [address], [place], Phone - [phone], Director - [facility] Notes/Report: Clinical Information:SRC:UR SRC:UR RPR Non Reactive Non Reactive US Breast Left Limited Reviewed date:12/10/2023 04:53:27 PM Interpretation: Performing Lab: Notes/Report: PROCEDURE: MM Digital Mammo Unilat Left, US Breast Left Limited INDICATION: Six-month follow-up left breast benign stereotactic guided biopsy and benign ultrasound-guided biopsy COMPARISON: [facility], most recent dated 06/06/2023 and 05/16/2023 TECHNIQUE: Digital diagnostic mammogram consisting of full field digital mammographic views of the left breast in CC and MLO projections were obtained. Spot CC and spot MLO tomographic compression images of the left breast were obtained. In addition, targeted high-resolution ultrasound of 12:00 3 cm from the nipple and 10:00, 3 to 9 cm from the nipple was obtained. DENSITY: There are scattered areas of fibroglandular density. FINDINGS: There is a stable buckle shaped clip associated with an oval mass in the slightly upper outer anterior left breast, consistent with previously biopsy-proven mass by tomographic guided biopsy. Stable ribbon-shaped clip associated with a previously sonographically biopsy-proven benign mass. Incidentally noted is a 7 mm focal asymmetry in the slightly upper inner mid to posterior left breast, 8 cm from the nipple, which persists on the spot CC and spot MLO tomographic compression images and demonstrates slightly lobulated margins and is isodense. Sonographic evaluation of the slightly upper inner left breast, 3 to 9 cm from the nipple demonstrates no sonographic correlate. Both myself and the technologist scanned. This is indeterminate. Further evaluation with tomographic guided core biopsy is recommended. Findings and recommendations were discussed with the patient before she left the facility. IMPRESSION: Stable biopsy clips in the previously biopsied lesions by ultrasound-guided and tomographic guided biopsies. Incidentally noted is a 7 mm lobulated focal asymmetry in the slightly upper inner mid to posterior left breast with no sonographic correlate for which tomographic guided biopsy is recommended. RECOMMENDATION: Digital tomosynthesis guided biopsy of the left breast BI-RADS: 4 (Suspicious) Lay letter mailed to patient WSN: [id number] Ordering Physician: Shanna Aguayo Dictated By: Claudia Ibanez MD PROCEDURE: MM Digita l Mammo Unilat Left, US Breast Left Limited INDICATION: Six-sarah beth h follow-up left breast benign stereotactic guided biopsy and benign ultrasound-guided biopsy COMPARISON: [facility], most recent dated 06/06/2023 and 05/16/2023 TECHNIQUE: Digital diagnostic mammogram consisting of full field digital mammographic views o f the left breast in CC and MLO projections were obtained. Spot CC and spot MLO tomographic compression images of the left breast were obtained. In additio n, targeted high-resolution ultrasound of 12:00 3 cm from the nipple and 10:00 , 3 to 9 cm from the nipple was obtained. DENSITY: There are scattered areas of fibroglandular density. FINDINGS: There is a stable buckle shaped clip associated with an oval mass in the slightly upper outer anterior left breast, consistent with previously biopsy-proven mass b y tomographic guided biopsy. Stable ribbon-shaped clip associated with a previously sonographically biopsy-proven benign mass. Incidentally noted i s a 7 mm focal asymmetry in the slightly upper inner mid to posterior left breas t, 8 cm from the nipple, which persists on the spot CC and spot MLO tomographic compression images and demonstrates slightly lobulated margins and is isodense. Sonographic evaluati on of the slightly upper inner left breast, 3 to 9 cm from the nipple demonstra serge no sonographic correlate. Both myself and the technologist scanned . This is indeterminate. Further evaluation with tomographic guided core biopsy i s recommended. Findings and recommendations were discussed with the patient bef ore she left the facility. IMPRESSION: Stable biopsy clips in the previously biopsied lesions by ultrasound-guided and tomographic guided biopsies. Incidentally noted i s a 7 mm lobulated focal asymmetry in the slightly upper inner mid to posteri or left breast with no sonographic correlate for which tomographic guided biopsy is recommended. RECOMMENDATION: Digi majo tomosynthesis guided biopsy of the left breast BI-RADS: 4 (Suspicious) Lay letter mailed to patient WSN: [id number] Ordering Physician: Shanna Aguayo MM Digital Mammo Unilat Left Reviewed date:12/10/2023 04:53:27 PM Interpretation: Performing Lab: Notes/Report: PROCEDURE: MM Digital Mammo Unilat Left, US Breast Left Limited INDICATION: Six-month follow-up left breast benign stereotactic guided biopsy and benign ultrasound-guided biopsy COMPARISON: [facility], most recent dated 06/06/2023 and 05/16/2023 TECHNIQUE: Digital diagnostic mammogram consisting of full field digital mammographic views of the left breast in CC and MLO projections were obtained. Spot CC and spot MLO tomographic compression images of the left breast were obtained. In addition, targeted high-resolution ultrasound of 12:00 3 cm from the nipple and 10:00, 3 to 9 cm from the nipple was obtained. DENSITY: There are scattered areas of fibroglandular density. FINDINGS: There is a stable buckle shaped clip associated with an oval mass in the slightly upper outer anterior left breast, consistent with previously biopsy-proven mass by tomographic guided biopsy. Stable ribbon-shaped clip associated with a previously sonographically biopsy-proven benign mass. Incidentally noted is a 7 mm focal asymmetry in the slightly upper inner mid to posterior left breast, 8 cm from the nipple, which persists on the spot CC and spot MLO tomographic compression images and demonstrates slightly lobulated margins and is isodense. Sonographic evaluation of the slightly upper inner left breast, 3 to 9 cm from the nipple demonstrates no sonographic correlate. Both myself and the technologist scanned. This is indeterminate. Further evaluation with tomographic guided core biopsy is recommended. Findings and recommendations were discussed with the patient before she left the facility. IMPRESSION: Stable biopsy clips in the previously biopsied lesions by ultrasound-guided and tomographic guided biopsies. Incidentally noted is a 7 mm lobulated focal asymmetry in the slightly upper inner mid to posterior left breast with no sonographic correlate for which tomographic guided biopsy is recommended. RECOMMENDATION: Digital tomosynthesis guided biopsy of the left breast BI-RADS: 4 (Suspicious) Lay letter mailed to patient WSN: [id number] Ordering Physician: Shanna Aguayo Dictated By: Claudia Ibanez MD PROCEDURE: MM Digita l Mammo Unilat Left, US Breast Left Limited INDICATION: Six-sarah beth h follow-up left breast benign stereotactic guided biopsy and benign ultrasound-guided biopsy COMPARISON: [facility], most recent dated 06/06/2023 and 05/16/2023 TECHNIQUE: Digital diagnostic mammogram consisting of full field digital mammographic views o f the left breast in CC and MLO projections were obtained. Spot CC and spot MLO tomographic compression images of the left breast were obtained. In additio n, targeted high-resolution ultrasound of 12:00 3 cm from the nipple and 10:00 , 3 to 9 cm from the nipple was obtained. DENSITY: There are scattered areas of fibroglandular density. FINDINGS: There is a stable buckle shaped clip associated with an oval mass in the slightly upper outer anterior left breast, consistent with previously biopsy-proven mass b y tomographic guided biopsy. Stable ribbon-shaped clip associated with a previously sonographically biopsy-proven benign mass. Incidentally noted i s a 7 mm focal asymmetry in the slightly upper inner mid to posterior left breas t, 8 cm from the nipple, which persists on the spot CC and spot MLO tomographic compression images and demonstrates slightly lobulated margins and is isodense. Sonographic evaluati on of the slightly upper inner left breast, 3 to 9 cm from the nipple demonstra serge no sonographic correlate. Both myself and the technologist scanned . This is indeterminate. Further evaluation with tomographic guided core biopsy i s recommended. Findings and recommendations were discussed with the patient bef ore she left the facility. IMPRESSION: Stable biopsy clips in the previously biopsied lesions by ultrasound-guided and tomographic guided biopsies. Incidentally noted i s a 7 mm lobulated focal asymmetry in the slightly upper inner mid to posteri or left breast with no sonographic correlate for which tomographic guided biopsy is recommended. RECOMMENDATION: Roberti majo tomosynthesis guided biopsy of the left breast BI-RADS: 4 (Suspicious) Lay letter mailed to patient WSN: [id number] Ordering Physician: Shanna Aguayo MR Breast Bilateral Reviewed date:01/16/2024 01:01:00 PM Interpretation: Performing Lab: Notes/Report: QuantiFERON-TB Gold Plus-[id number] Reviewed date:05/17/2023 08:32:56 AM Interpretation: Performing Lab:[facility], [address] [place] [address], [place], Phone - [phone], Director - Robb Notes/Report: QuantiFERON Incubation Incubation performed. QuantiFERON-TB Gold Plus Negative Negative No response to M tuberculosis antigens detected. Infection with M tuberculosis is unlikely, but high risk individuals should be considered for additional testing (ATS/IDSA/CDC Clinical Practice Guidelines, 2017). The reference range is an Antigen minus Nil result of <0.35 IU/mL. Chemiluminescence immunoassay methodology QuantiFERON Criteria QuantiFERON-TB Gold Plus is a qualitative indirect test for M tuberculosis infection (including disease) and is intended for use in conjunction with risk assessment, radiography, and other medical and diagnostic evaluations. The QuantiFERON-TB Gold Plus result is determined by subtracting the Nil value from either TB antigen (Ag) value. The Mitogen tube serves as a control for the test. QuantiFERON TB1 Ag Value 0.07 QuantiFERON TB2 Ag Value 0.06 QuantiFERON Nil Value 0.06 QuantiFERON Mitogen Value >10.00 Iron and [id number] Reviewed date:07/31/2023 10:52:25 AM Interpretation: Performing Lab:[facility], [address] [facility], Phone - [phone], Director - Robb Notes/Report: Iron Bind.Cap.(TIBC) 245 250-450 ug/dL UIBC 181 131-425 ug/dL Iron 64 27-159 ug/dL Iron Saturation 26 15-55 % Ferritin-[id number] Reviewed date:07/31/2023 10:52:25 AM Interpretation: Performing Lab:[facility], [address] [facility], Phone - [phone], Director - Robb Notes/Report: Ferritin 283 15-150 ng/mL US Core Biopsy Left Reviewed date:05/28/2023 05:40:18 PM Interpretation: Performing Lab: Notes/Report: A D D E N D U M as of: [id number] Final pathology for ultrasound-guided biopsy of a mass in the left breast 12:00 position, 3 cm from the nipple is now available. The lesion represent fibroglandular breast tissue with dense stroma and focal fibroadenomatous change with usual ductal hyperplasia. No from pathology questions whether the area in question represents a nodular area of fibroglandular tissue or fibroadenoma. Biopsy images were reviewed demonstrating adequate sampling of the target. Pathologic findings are felt to be concordant with imaging findings. The biopsy site is marked with a ribbon-shaped clip. Recommend follow-up left breast ultrasound in 6 months assess for postbiopsy stability. Findings and recommendations were communicated with the patient by Joi Mohan on 05/18/2023. WSN: [id number] Ordering Physician: Shanna Aguayo Dictated By: Xiang Zacarias MD PROCEDURE: Incisional core biopsy of the left breast with marker placement and post-procedure mammography. INDICATION: Ultrasound performed at [facility] showed an indeterminant mass in the 12:00 axis of the left breast 3 cm from nipple for which biopsy was recommended. TECHNIQUE: The procedure was explained to the patient who signed informed consent. Ultrasound was used to localize the mass prior to biopsy. The skin was cleansed and local anesthetic was administered. A small skin incision was made for access. Using a sterile biopsy tray and a 14-gauge spring-loaded core biopsy device, the needle was inserted and core samples were obtained from the mass. Each specimen was immersed in formalin. After sampling, a ribbon-shaped metallic tissue marker clip was placed into the region of biopsy with ultrasound guidance. Compression was held and hemostasis was achieved. A sterile pressure dressing was applied and the patient was given an ice pack. She was also given verbal as well as written instructions for care of the puncture site and dressing including steps that should be taken should she be concerned about a developing complication. Overall, the patient tolerated the procedure well and there was no evidence of immediate complication. A digital left mammogram taken after the procedure consisting of 2-D views with light compression in the CC and MLO projections shows deployment of the rib marker within the anterior 12-1 o'clock axis located 3 cm anterior to the left breast mass reported on recent screening and diagnostic mammography. No evidence of hematoma at the biopsy site. IMPRESSION: 1. Ultrasound localization of left breast mass prior to biopsy. 2. Incisional core biopsy of the mass was performed with ultrasound guidance. A sterile biopsy tray and 14-gauge spring-loaded core biopsy device were used. 3. Placement of tissue marker (Ribbon clip) into the site of biopsy. 4. Digital left mammogram showing deployment of the ribbon marker in the anterior 12-1 o'clock axis, 3 cm anterior to the well-circumscribed mass reported on recent mammography. Therefore, the biopsied sonographic mass and mammographic mass represented 2 distinct findings. Tomographically guided biopsy of the non biopsied 0.5 cm mammographic mass in the 12:[address] Roth discussed the findings and recommendations with the patient at the time of the exam. Patient was offered a stereotactic core biopsy appointment prior to leaving the facility. 5. The targeted lesion measures 0.6 cm by Ultrasound When the results of pathology are known, a supplemental report will be dictated. WSN: [id number] Ordering Physician: Shanna Aguayo Dictated By: Gonzalez Hamilton MD, Dawit Martinez D E N D U M as o f: [id number] Final pathology for ultrasound-guided biopsy of a mass in the left breast 12:00 position, 3 cm from the nipple is now available. The lesion represent fibroglandular breas t tissue with dense stroma and focal fibroadenomatous change with usual ductal hyperplasia. No from pathology questions whether the area in question represents a nodular area of fibroglandular tissue or fibroadenoma. Biopsy images were reviewed demonstrating adequate sampling of the target. Pathologic findings are felt to be concordant with imaging findings. The biopsy site is marked with a ribbon-shaped clip. Recommend follow-up left breast ultrasound in 6 sarah bteh hs assess for postbiopsy stability. Findings and recommendations were communicated with the patient by Joi Mohan on 05/18/2023. WSN: [id number] Ordering Physician: Shanna Aguayo PROCEDURE: Incisiona l core biopsy of the left breast with marker placement and post-procedure mammography. INDICATION: Ultrasou nd performed at [facility] showed an indeterminant mass i n the 12:00 axis of the left breast 3 cm from nipple for which biopsy was recommended. TECHNIQUE: The procedure was explained to the patient who signed informed consent. Ultrasound was used to localize the mass prior to biopsy. The skin was cleansed and local anesthetic was administered. A small skin incision was made for access. Using a sterile biopsy tray and a 14-gauge spring-loaded core biopsy device, the needle w as inserted and core samples were obtained from the mass. Each specimen was immersed in formalin. After sampling, a ribbon-shaped metallic tissue marker clip was placed into the region of biopsy wit h ultrasound guidance. Compression was held and hemostasis was achieved. A sterile pressure dressing was applied and the patient was given an ice pack. She was also given verbal as well as written instructions for care of the puncture site and dressing including steps that should be taken should she be concerned about a developing complication. Overal l, the patient tolerated the procedure well and there was no evidence of immediat e complication. A digital left mammogram taken after the procedure consisting of 2-D views with light compression in the CC and MLO projections shows deployment of the rib marker within the anterior 12-1 o'clock axis located 3 cm anterior to the left breast mass reported on recent screening and diagnostic mammography. No evidence of hemat angel at the biopsy site. IMPRESSION: 1. Ultrasound localization of left breast mass prior to biopsy. 2. Incisional core biopsy of the mass was performed with ultrasound guidance. A sterile biopsy tray and 14-gauge spring-loaded core biopsy device were used. 3. Placement of tiss ue marker (Ribbon clip) into the site of biopsy. 4. Digital left mammogram showing deployment of the ribbon marker in the anterior 12-1 o'cloc k axis, 3 cm anterior to the well-circumscribed mass reported on recent mammography. Therefore, the biopsied sonographic mass and mammographic mass represented 2 distinct findings. Tomographically guided biopsy of the non biopsied 0.5 cm mammographic mass in the 12:[address] Roth discuss ed the findings and recommendations with the patient at the time of the exam. Patient was offered a stereotactic core biopsy appointment prior to leaving the facility. 5. The targeted lesi on measures 0.6 cm by Ultrasound When the results of pathology are known, a supplemental report will be dictated. WSN: [id number] Ordering Physician: Shanna Aguayo MM Digital Mammo Post Clip U ni/Left Reviewed date:05/28/2023 05:40:18 PM Interpretation: Performing Lab: Notes/Report: A D D E N D U M as of: [id number] Final pathology for ultrasound-guided biopsy of a mass in the left breast 12:00 position, 3 cm from the nipple is now available. The lesion represent fibroglandular breast tissue with dense stroma and focal fibroadenomatous change with usual ductal hyperplasia. No from pathology questions whether the area in question represents a nodular area of fibroglandular tissue or fibroadenoma. Biopsy images were reviewed demonstrating adequate sampling of the target. Pathologic findings are felt to be concordant with imaging findings. The biopsy site is marked with a ribbon-shaped clip. Recommend follow-up left breast ultrasound in 6 months assess for postbiopsy stability. Findings and recommendations were communicated with the patient by Joi Mohan on 05/18/2023. WSN: [id number] Ordering Physician: Shanna Aguayo Dictated By: Xiang Zacarias MD PROCEDURE: Incisional core biopsy of the left breast with marker placement and post-procedure mammography. INDICATION: Ultrasound performed at [facility] showed an indeterminant mass in the 12:00 axis of the left breast 3 cm from nipple for which biopsy was recommended. TECHNIQUE: The procedure was explained to the patient who signed informed consent. Ultrasound was used to localize the mass prior to biopsy. The skin was cleansed and local anesthetic was administered. A small skin incision was made for access. Using a sterile biopsy tray and a 14-gauge spring-loaded core biopsy device, the needle was inserted and core samples were obtained from the mass. Each specimen was immersed in formalin. After sampling, a ribbon-shaped metallic tissue marker clip was placed into the region of biopsy with ultrasound guidance. Compression was held and hemostasis was achieved. A sterile pressure dressing was applied and the patient was given an ice pack. She was also given verbal as well as written instructions for care of the puncture site and dressing including steps that should be taken should she be concerned about a developing complication. Overall, the patient tolerated the procedure well and there was no evidence of immediate complication. A digital left mammogram taken after the procedure consisting of 2-D views with light compression in the CC and MLO projections shows deployment of the rib marker within the anterior 12-1 o'clock axis located 3 cm anterior to the left breast mass reported on recent screening and diagnostic mammography. No evidence of hematoma at the biopsy site. IMPRESSION: 1. Ultrasound localization of left breast mass prior to biopsy. 2. Incisional core biopsy of the mass was performed with ultrasound guidance. A sterile biopsy tray and 14-gauge spring-loaded core biopsy device were used. 3. Placement of tissue marker (Ribbon clip) into the site of biopsy. 4. Digital left mammogram showing deployment of the ribbon marker in the anterior 12-1 o'clock axis, 3 cm anterior to the well-circumscribed mass reported on recent mammography. Therefore, the biopsied sonographic mass and mammographic mass represented 2 distinct findings. Tomographically guided biopsy of the non biopsied 0.5 cm mammographic mass in the 12:[address] Roth discussed the findings and recommendations with the patient at the time of the exam. Patient was offered a stereotactic core biopsy appointment prior to leaving the facility. 5. The targeted lesion measures 0.6 cm by Ultrasound When the results of pathology are known, a supplemental report will be dictated. WSN: [id number] Ordering Physician: Shanna Aguayo Dictated By: Gonzalez Hamilton MD, Daiwt Camacho A D D E N D U M as o f: [id number] Final pathology for ultrasound-guided biopsy of a mass in the left breast 12:00 position, 3 cm from the nipple is now available. The lesion represent fibroglandular breas t tissue with dense stroma and focal fibroadenomatous change with usual ductal hyperplasia. No from pathology questions whether the area in question represents a nodular area of fibroglandular tissue or fibroadenoma. Biopsy images were reviewed demonstrating adequate sampling of the target. Pathologic findings are felt to be concordant with imaging findings. The biopsy site is marked with a ribbon-shaped clip. Recommend follow-up left breast ultrasound in 6 sarah beth hs assess for postbiopsy stability. Findings and recommendations were communicated with the patient by Joi Mohan on 05/18/2023. WSN: [id number] Ordering Physician: Shanna Aguayo PROCEDURE: Incisiona l core biopsy of the left breast with marker placement and post-procedure mammography. INDICATION: Ultrasou nd performed at [facility] showed an indeterminant mass i n the 12:00 axis of the left breast 3 cm from nipple for which biopsy was recommended. TECHNIQUE: The procedure was explained to the patient who signed informed consent. Ultrasound was used to localize the mass prior to biopsy. The skin was cleansed and local anesthetic was administered. A small skin incision was made for access. Using a sterile biopsy tray and a 14-gauge spring-loaded core biopsy device, the needle w as inserted and core samples were obtained from the mass. Each specimen was immersed in formalin. After sampling, a ribbon-shaped metallic tissue marker clip was placed into the region of biopsy wit h ultrasound guidance. Compression was held and hemostasis was achieved. A sterile pressure dressing was applied and the patient was given an ice pack. She was also given verbal as well as written instructions for care of the puncture site and dressing including steps that should be taken should she be concerned about a developing complication. Overal l, the patient tolerated the procedure well and there was no evidence of immediat e complication. A digital left mammogram taken after the procedure consisting of 2-D views with light compression in the CC and MLO projections shows deployment of the rib marker within the anterior 12-1 o'clock axis located 3 cm anterior to the left breast mass reported on recent screening and diagnostic mammography. No evidence of hemat angel at the biopsy site. IMPRESSION: 1. Ultrasound localization of left breast mass prior to biopsy. 2. Incisional core biopsy of the mass was performed with ultrasound guidance. A sterile biopsy tray and 14-gauge spring-loaded core biopsy device were used. 3. Placement of tiss ue marker (Ribbon clip) into the site of biopsy. 4. Digital left mammogram showing deployment of the ribbon marker in the anterior 12-1 o'cloc k axis, 3 cm anterior to the well-circumscribed mass reported on recent mammography. Therefore, the biopsied sonographic mass and mammographic mass represented 2 distinct findings. Tomographically guided biopsy of the non biopsied 0.5 cm mammographic mass in the 12:[address] Roth discuss ed the findings and recommendations with the patient at the time of the exam. Patient was offered a stereotactic core biopsy appointment prior to leaving the facility. 5. The targeted lesi on measures 0.6 cm by Ultrasound When the results of pathology are known, a supplemental report will be dictated. WSN: [id number] Ordering Physician: Shanna Aguayo MM 3D Stereo Breast Biopsy L eft Reviewed date:06/10/2023 07:33:25 PM Interpretation: Performing Lab: Notes/Report: A D D E N D U M as of: [id number] Addendum: Final pathology for 3D tomosynthesis core biopsy of a small mass in the left breast is now available. The lesion represented: Nodular area of the cystic apocrine metaplasia. This result is concordant with imaging findings. The lesion is marked by a buckle shaped marker. In view of this result recommend 6 months follow-up with 3D tomosynthesis. The findings were discussed with the patient via telephone by our staff Joi Mohan at 12:45 PM on 06/08/2023. WSN: [id number] Ordering Physician: Shanna Aguayo Dictated By: Fran MD, Ber PROCEDURE: Tomosynthesis-guided automated vacuum assisted biopsy of the left breast with marker placement and post-procedure verification of marker placement. INDICATION: [facility] showed a suspicious mass in the upper outer left breast for which biopsy was recommended. TECHNIQUE: The procedure was explained to the patient who signed informed consent. The breast was placed in compression and 3D digital tomosynthesis was used to localize the lesion. The skin was cleansed and local anesthetic was administered. A small skin incision was made for access. Using a sterile biopsy tray and a 9-gauge vacuum assisted biopsy device, the probe was inserted and its position confirmed on repeat imaging. Samples were obtained and immersed in formalin. After sampling, a buckle-shaped tissue marker clip was deployed into the region of biopsy. A left distal mammogram was performed showing successful and accurate appearing clip placement. The probe was removed and compression was held. Hemostasis was achieved and a sterile pressure dressing was applied. The patient was given an ice pack. She was also given verbal as well as written instructions for care of the puncture site and dressing including steps that should be taken should she be concerned about a developing complication. Overall, the patient tolerated the procedure well and there was no evidence of immediate complication. IMPRESSION: 1. 3D digital tomosynthesis localization of left breast mass prior to biopsy. 2. Automated vacuum assisted biopsy of the lesion was performed. A sterile biopsy tray, 9-gauge vacuum assisted biopsy device, and vacuum canister were used. 3. Placement of tissue marker (buckle-shaped clip) into the site of biopsy. 4. Digital left 3-D mammogram showing successful and accurate appearing clip placement. 5.The targeted lesion measures 0.5 cm by mammography. When the results of pathology are known, a supplemental report will be dictated. WSN: [id number] Ordering Physician: Shanna Aguayo Dictated By: Kate SPRING, Virgie O Effie Martinez D E N Juan U M as o f: [phone] Addendum: Final pathology for 3D tomosynthesis core biopsy of a small mass in the left breast is n ow available. The lesion represented: Nodular area of the cystic apocrine metaplasia. This result is concordant with imaging findings. The lesion is marked by a buckle shaped marker . In view of this result recommend 6 months follow-up with 3D tomosynthesis. The findings were discussed with the patient via telephone by our staff Joi Mohan at 12:45 PM on 06/08/2023. WSN: [id number] Ordering Physician: Shanna Aguayo PROCEDURE: Tomosynthesis-guided automated vacuum assisted biopsy of the left breast with marker placement and post-procedure verification of marker placement. INDICATION: [facility]ammogra phy [facility] showed a suspicious mass in the upper outer left breast for which biopsy was recommended. TECHNIQUE: The procedure was explained to the patient who signed informed consent. The breast was placed in compression and 3D digital tomosynthesis was used to localize the lesion. The skin was cleansed and local anesthetic was administered. A smal l skin incision was made for access. Using a sterile biopsy tray and a 9-gauge vacuum assisted biopsy device, the probe was inserted and its position confirmed o n repeat imaging. Samples were obtained and immersed in formalin. After sampling, a buckle-shaped tissue marker clip was deployed into the region of biopsy . A left distal mammogram was performed showing successful and accurate appeari ng clip placement. The probe was remove d and compression was held. Hemostasis was achieved and a sterile pressure dressing was applied. The patient was given an ice pack. She was also given verba l as well as written instructions for care of the puncture site and dressing including steps that should be taken should she be concerned about a developing complication. Overall, the patient tolerated the procedure well and there was n o evidence of immediate complication. IMPRESSION: 1. 3D digital tomosynthesis localization of left breast mass prior to biopsy. 2. Automated vacuum assisted biopsy of the lesion was performed. A sterile biopsy tray, 9-gauge vacuum assisted biopsy device, and vacuum canister were used. 3. Placement of tiss ue marker (buckle-shaped clip) into the site of biopsy. 4. Digital left 3-D mammogram showing successful and accurate appearing clip placement. 5.The targeted lesio n measures 0.5 cm by mammography. When the results of pathology are known, a supplemental report will be dictated. WSN: [id number] Ordering Physician: Shanna Aguayo Respiratory Panel w/ SARS-Co [id number] Reviewed date:09/21/2023 08:19:16 PM Interpretation: Performing Lab:Nanette Hamilton [facility], [place], Phone - [phone], Director - Robb Notes/Report: Clinical Information:SRC: Adenovirus Not Detected Not Detected Coronavirus HKU1 Not Detected Not Detected Coronavirus NL63 Not Detected Not Detected Coronavirus 229E Not Detected Not Detected Coronavirus OC43 Not Detected Not Detected SARS-CoV-2 Not Detected Not Detected Human Metapneumovirus Not Detected Not Detected Human Rhinovirus/Enterovirus Not Detected Not Detected Influenza A Not Detected Not Detected Influenza A/H1 TNP Test not perf ormed Influenza A/H1-2009 TNP Test not performed Influenza A/H3 TNP Test not perf ormed Influenza B Not Detected Not Detected Parainfluenza 1 Not Detected Not Detected Parainfluenza 2 Not Detected Not Detected Parainfluenza 3 Not Detected Not Detected Parainfluenza 4 Not Detected Not Detected Respiratory Syncytial Virus Not Detected Not Detected Bordetella parapertussis Not Detected Not Detected Bordetella pertussis Not Detected Not Detected Chlamydophila pneumoniae Not Detected Not Detected Mycoplasma pneumoniae Not Detected Not Detected Respiratory Panel w/ SARS-Co [id number] Reviewed date:11/06/2023 06:57:46 AM Interpretation: Performing Lab:[facility], [address] [facility], [place], Phone - [phone], Director - Robb Notes/Report: Clinical Information:SRC: Adenovirus Not Detected Not Detected Coronavirus HKU1 Not Detected Not Detected Coronavirus NL63 Not Detected Not Detected Coronavirus 229E Not Detected Not Detected Coronavirus OC43 Not Detected Not Detected SARS-CoV-2 Not Detected Not Detected Human Metapneumovirus Not Detected Not Detected Human Rhinovirus/Enterovirus Detected Not Detected Influenza A Not Detected Not Detected Influenza A/H1 TNP Test not perf ormed Influenza A/H1-2009 TNP Test not performed Influenza A/H3 TNP Test not perf ormed Influenza B Not Detected Not Detected Parainfluenza 1 Not Detected Not Detected Parainfluenza 2 Not Detected Not Detected Parainfluenza 3 Not Detected Not Detected Parainfluenza 4 Not Detected Not Detected Respiratory Syncytial Virus Not Detected Not Detected Bordetella parapertussis Not Detected Not Detected Bordetella pertussis Not Detected Not Detected Chlamydophila pneumoniae Not Detected Not Detected Mycoplasma pneumoniae Not Detected Not Detected 25OH VITAMIN D Reviewed date:04/05/2023 11:32:15 AM Interpretation: Performing Lab:Testing performed or reported by [facility], a Service of [address] [address] Gagan Aquino MD, Casing Tier [facility]# [id number] Notes/Report: 25OH VITAMIN D 36.5 (20-50) NG/ML ANTI THYROID PEROXIDASE AB Reviewed date:04/05/2023 11:32:16 AM Interpretation: Performing Lab:Testing performed or reported by [facility], a Service of [address] [address] Gagan Aquino MD, Casing Tier [place]# [id number] Notes/Report: ANTI THYROID PEROXIDASE AB 16.2 (<34) IU/ML The results are assay dependent and cannot be interchangeable with other assays. The antibody assay is being performed using the electrochemiluminescen ce immunoassay on the [employer] immunoassay analyzer. A correlation with clinical presentation is recommended while interpreting the results. ANTITHYROGLOBULIN AB Reviewed date:04/05/2023 11:32:16 AM Interpretation: Performing Lab:Testing performed or reported by [facility], a Service of [address] [address] Gagan Aquino MD, Casing Tier [place]# [id number] Notes/Report: ANTITHYROGLOBULIN AB 12.4 (<115) IU/ML The results are assay dependent and cannot be interchangeable with other assays. The antibody assay is being performed using the electrochemiluminescen ce immunoassay on the [employer] immunoassay analyzer. A correlation with clinical presentation is recommended while interpreting the results. COMPLETE CBC WITH DIFF Reviewed date:04/05/2023 11:32:16 AM Interpretation: Performing Lab:Testing performed or reported by [facility], a Service of [address] [address] Gagan Aquino MD, Casing Tier [facility]# [id number] Notes/Report: WBC 8.5 (4.0-11.0) K/MM3 RBC 4.22 (4.20-5.40) M/MM3 HGB 12.2 (11.7-15.5) GM/DL HCT 38.2 (35.7-45.8) % MCV 90.5 (80.0-100.0) FL MCH 28.9 (27.0-34.0) PG MCHC 31.9 (33.0-37.0) g/dL PLT 280 (150-460) K/MM3 RDW-SD 45.4 (<47.0) FL MPV 11.9 (9.4-12.4) FL AUTOMATED NRBC 0.0 ABS. NRBC 0.0 NEUT # 4.3 (1.3-7.0) K/MM3 LYMPH # 3.2 (0.8-3.1) K/MM3 MONO# 0.6 (0.4-0.9) K/MM3 EO # 0.4 (0.0-0.4) K/MM3 BASO # 0.0 (0.0-0.1) K/MM3 ABS. IMM GRAN 0.0 NEUT 50.3 (44-76) % LYMPH 37.1 (15-43) % MONOCYTE 7.4 (4.5-10.5) % EO 4.9 (0-6) % BASO 0.1 (0-2) % IMM GRAN 0.2 COMPLETE URINALYSIS Reviewed date:04/05/2023 11:32:16 AM Interpretation: Performing Lab:Testing performed or reported by [facility], [place] [address] Gagan Aquino MD, Casing Tier [facility]# [id number] Notes/Report: APPEAR/COLOR YELLOW TURBID SP. GRAVITY 1.028 (1.002-1.030) URINE PH 6.5 (5.0-8.0) URINE ALBUMIN 1+ (NEG) URINE GLUCOSE NEGATIVE (NEG) URINE KETONES TRACE (NEG) URINE BILIRUBIN NEGATIVE (NEG) URINE HEMOGLOBIN NEGATIVE (NEG) URINE NITRITE NEGATIVE (NEG) URINE LEUKOCYTE 2+ (NEG) UROBILINOGEN NORMAL (NORM) MG/DL URINE WBCs 13 (0-5) /HPF URINE RBCs 1 (0-3) /HPF BACTERIA SLIGHT (NEG) HPF MUCUS SLIGHT SQUAMOUS EPITH 8 (0-8) /HPF CALCIUM OXALATE CRYSTAL SLIGHT COMPREHENSIVE METABOLIC PANE L Reviewed date:04/05/2023 11:32:16 AM Interpretation: Performing Lab:Testing performed or reported by [facility] [employer], a Service of [address] [address] Gagan Aquino MD, Casing Tier [facility]# [id number] Notes/Report: GLUCOSE 89 (70-99) MG/DL BUN 10 (6-20) MG/DL CREATININE 0.8 (0.5-1.0) MG/DL SODIUM 142 (133-145) MMOL/L POTASSIUM 4.6 (3.6-5.2) MMOL/L CHLORIDE 108 (98-107) MMOL/L BICARBONATE 21 (22-29) MMOL/L ANION GAP 13 (4-17) ALBUMIN 4.4 (3.4-4.8) GM/DL CALCIUM 9.1 (8.6-10.5) MG/DL BILIRUBIN,TOTAL 0.2 (0-1.2) MG/DL TOTAL PROTEIN 7.3 (6.2-8.2) GM/DL AG RATIO 1.5 AST 19 (0-32) U/L ALK PHOS 73 (35-104) U/L ALT 19 (0-33) U/L ESTIMATED GFR CREATININE 107 Creatinine based estimated glomerular filtration (eGFR) in adults is calculated using the National Kidney Foundation recommended 2020 CKD-EPI equation. Estimates GFR from serum creatinine, age and sex. FERRITIN Reviewed date:04/05/2023 11:32:16 AM Interpretation: Performing Lab:Testing performed or reported by [facility] [employer], a Service of [address] [address] Gagan Aquino MD, Casing Tier [facility]# [id number] Notes/Report: FERRITIN 254 (14-283) NG/ML HEMOGLOBIN A1C Reviewed date:04/05/2023 11:32:16 AM Interpretation: Performing Lab:Testing performed or reported by [facility] [employer], a Service of [address] [address] Gagan Aquino MD, Casing Tier [facility]# [id number] Notes/Report: HEMOGLOBIN A1C 5.0 (4.0-5.6) % MONITORING: In known diabetic patients, hemoglobin A1c targets should be discussed with health care provider. DIAGNOSTIC USE: The [place] Diabetes Association (ADA) and the World Health Organization (WHO) recommend the use of HbA1c to diagnose diabetes using a threshold of 6.5%. Patients who have an HbA1c between 5.7% and 6.4% are considered at increased risk for developing diabetes in the future. CAUTION: Falsely low HbA1c results may be observed in patients with hemolytic anemia, homozygous forms of abnormal hemoglobin (e.g. SS, CC, SC), , recent blood loss or hemoglobin F greater than 7%. Fructosamine may be used as an alternate test in these cases. REFERENCE: ADA: Standards of Medical Care in Diabetes 2020, The Journal of Clinical and Applied Research and Education Volume 43, Supplement 1 IRON & TIBC Reviewed date:04/05/2023 11:32:16 AM Interpretation: Performing Lab:Testing performed or reported by [facility], a Service of [address] [address] Gagan Aquino MD, Casing Tier [facility]# [id number] Notes/Report: IRON 28 (30-160) MCG/DL UNSATURATED IRON BINDING CAPAC 204 (110-370) MCG/DL EST T. IRON BIND CAPACITY 232 (140-530) MCG/DL % IRON SATURATION 12 (20-55) % LIPID PANEL Reviewed date:04/05/2023 11:32:16 AM Interpretation: Performing Lab:Testing performed or reported by [facility], a Service of [address] [address] Gagan Aquino MD, Casing Tier [facility]# [id number] Notes/Report: CHOLESTEROL, TOTAL 164 (<200) MG/DL TRIGLYCERIDE 135 (<150) MG/DL HDL CHOL 36 (>39) MG/DL LDL CHOLESTEROL, CALCULATED 101 (0-130) MG/DL NON HDL CHOLESTEROL (CALC) 128 (<160) MG/DL TSH WITH REFLEX TO FT4 Reviewed date:04/05/2023 11:32:16 AM Interpretation: Performing Lab:Testing performed or reported by [facility], a Service of [address] [address] Gagan Aquino MD, Casing Tier [facility]# [id number] Notes/Report: TSH 0.63 (0.4-4.2) uIU/mL VITAMIN B12 Reviewed date:04/05/2023 11:32:16 AM Interpretation: Performing Lab:Testing performed or reported by [facility], a Service of [address] [address] Gagan Aquino MD, Casing Tier [facility]# [id number] Notes/Report: VITAMIN B12 743 (232-1245) pg/mL ZINC Reviewed date:04/13/2023 08:38:08 AM Interpretation: Performing Lab:Testing performed or reported by [facility], a Service of [facility], [place] [address] Gagan Aquino MD, Casing Tier [facility]# [id number] Notes/Report: ZINC 55 Reference range: 44 to 115 Unit: ug/dL (NOTE) This test was developed and its performance characteristics determined by [facility]. It has not been cleared or approved by the Food and Drug Administration. Detection Limit EQ 5 Test performed at [address] [address] [place] Reviewed date:04/07/2023 03:10:26 PM Interpretation: Performing Lab:Testing performed or reported by [facility], a Service of [facility], [facility] [place] [address] Gagan Aquino MD, Casing Tier CLIA# [id number] Notes/Report: ANTI-NUCLEAR ANTIBODY SCREEN NEGATIVE (NOTE) Negative <1:80 Borderline 1:80 Positive >1:80 ICAP nomenclature: AC-0 For more information about Hep-2 cell patterns use ANApatterns.org, the official website for the International Consensus on Antinuclear Antibody ([place]) Patterns (ICAP). Test performed by [facility], [place] [address] ANTI-HEPATITIS C W/RFLX HCV QNT Reviewed date:04/05/2023 11:32:16 AM Interpretation: Performing Lab:Testing performed or reported by [facility] [employer] a Service of [facility], [place] [address] Gagan Aquino MD, Casing Tier CLIA# [id number] Notes/Report: ANTI-HEPATITIS C NEGATIVE (NEG) Reference range: Negative This test was performed on the [employer] immunoassay system. MMR (MEASLES, MUMPS, RUBELLA ) IGG TITER Reviewed date:04/05/2023 11:32:16 AM Interpretation: Performing Lab:Testing performed or reported by [facility], a Service of [facility], [place] [address] Gagan Aquino MD, Casing Tier [facility]# [id number] Notes/Report: RUBEOLA AB IGG POSITIVE (POS) Indicates prior exposure or immunity. Testing performed by the [employer] 2200 multiplex flow immunoassay system MUMPS AB IGG POSITIVE (POS) Indicates prior exposure or immunity. Testing performed by the [employer] 2200 multiplex flow immunoassay system RUBELLA IGG ANTIBODY POSITIVE (POS) Indicates prior exposure or immunity. Testing performed by the [employer] 2200 multiplex flow immunoassay system THIN PREP,HPV (>29YR) (DIAG) Reviewed date:04/05/2023 11:32:16 AM Interpretation: Performing Lab: Notes/Report: CYTOLOGY, STATION REPAIRER 03/22/2023 CYTOLOGY (STATION REPAIRER) 03/22/2023 PDF Report Reviewed date:07/31/2023 10:52:25 AM Interpretation: Performing Lab:[facility] [place], [address] [place] [address], Phone - [phone], Director - Robb Notes/Report: Iron and [id number] Reviewed date:06/03/2023 08:07:04 AM Interpretation: Performing Lab:[facility] [place], [address] [place] [address], Phone - [phone], Director - Robb Notes/Report: Iron Bind.Cap.(TIBC) 258 250-450 ug/dL UIBC 169 131-425 ug/dL Iron 89 27-159 ug/dL Iron Saturation 34 15-55 % Ferritin-[id number] Reviewed date:06/03/2023 08:07:04 AM Interpretation: Performing Lab:[facility] [place], [address] [place] [address], Phone - [phone], Director - Robb Notes/Report: Ferritin 305 15-150 ng/mL PDF Report Reviewed date:09/21/2023 08:19:16 PM Interpretation: Performing Lab:[facility] [place], [address] [place] [address], Phone - [phone], Director - Robb Notes/Report: Clinical Information:SRC: Reason For Referral Reason Patient would benefi t from NeuroPsych testing through [facility] faxed Diagnosis 1 Attention and concen tration deficit (R41.840) Referral Organization [facility] Referring Provider First Name Shanna Referring Provider Last Name Dede Referring Provider Speciality Nurse Prac titioner Referred Provider Fransisca Mcgee Referred Provider Specialty Neuropsychia try General Notes Mary GONZALEZ 06/2023 09:01:38 AM >faxed, Lida GONZALEZ 10/17/2023 08:28:22 AM >Tamra meneses [facility] called stated that the referral that was placed was not appropriate for them to see patient for diagnose. Per provider Dr. Love they recommend [facility] for autism, located in [facility] in [place] [phone] , website. [email or web address], [facility] 10/17/2023 08:28:39 AM > Can try Dr mcgee office, [facility] 10/17/2023 08:36:32 AM > faxed to Dr. 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) Referral Organization [facility] Referring Provider First Name Shanna Referring Provider Last Name Dede Referring Provider Speciality Nurse Sakina lozada Referred Provider Specialty Other Medica l Care General Notes [facility] 07/2023 03:01:02 PM >faxed to Sabrina Burgos at [facility] [phone], [facility] 10/19/2023 01:06:42 PM >Dr Mcgee does not see patients younger than 62 yrs old Referral Priority Routine Reason faxed Diagnosis 1 Follicular cyst of t he skin and subcutaneous tissue, unspecified (L72.9) Referral Organization [facility] Referring Provider First Name Shanna Referring Provider Last Name Dede Referring Provider Speciality Nurse Sakina lozada Referred Provider [facility] Saira Hua Referred Provider Specialty Dermatology General Notes [facility] 10/06 08:31:25 AM >faxed, [facility] Mary 10/17/2023 04:29:58 PM >Booked 11/24/2023 Referral Priority Routine Medications Medication SIG (Take, Route, Frequency, Duration) Notes Start Date End Date Status Vyvanse 40 MG 1 capsule in the mor spencer Orally Once a day for 30 days 01/15/2024 Active Propranolol HCl 10 MG TAKE 1 TABLET BY M OUTH DAILY Orally Three times a day for 90 days Active Liletta (52 MG) 20.1 MCG/DAY as directed Intrauterine Act ijeoma LORazepam 0.5 MG 1 tablet Orally prn Active Immunizations Vaccine Route Administration Date Status Comme nts *Gardasil 9-HPV9v Unknown 08/27/2006 Administered *Influenza-Fluzone IM Intramuscular 11/23/2023 Administere d *Tdap Unknown 06/26/2006 Administered *Tdap Unknown 12/07/2017 Administered COVID 19 (Pfizer 12+) Unknown 03/03/2021 Administered COVID-19 Pfizer BiValent Booster Unknown 11/26/2021 Administered PKFAN-21-Kuxkgu Vaccine Unknown 08/30/2020 Administered HJBYU-07-Nwcdph Vaccine Unknown 09/20/2020 Administered Hep B, adult (2 dose schedule) Unknown 12/25/2006 Administered Cyokzdsaf-4186-98 Afluria-Single Unknown 11/26/2021 Administered Influenza-Afluria (IIV4) Unknown 02/18/2021 Administere d Meningococcal MCV4O (CVX 114) Unknown 06/26/2006 Administered Varicella Unknown 12/07/2017 Administered Varicella Unknown 01/18/2018 Administered Social History AUDIT-C (Standard) Question Answer Notes Did you have a drink contain ing alcohol in the past year? Yes How often did you have six o r more drinks on one occasion in the past year? Never (0 point) How many drinks did you have on a typical day when you were drinking in the past year? 1 or 2 drinks (0 point) How often did you have a dri nk containing alcohol in the past year? Monthly or less (1 point) Points 1 Interpretation Negative Problems Problem Type SNOMED Code ICD Code Onset Dates Problem Status W/U Status Risk Notes Problem Iron deficiency anemia (02457712) Iron deficiency anemia, unspecified (D50.9) Active confirmed Problem Non-toxic single thyroid nodule (057658713) Nontoxic single thyroid nodule (E04.1) Active confirmed Problem Acute thyroiditis (208734278) Acute thyroiditis (E06.0) Active confirmed Problem Vitamin D deficiency (78270068) Vitamin D deficiency, unspecified (E55.9) Active confirmed Problem Dietary zinc deficiency (340706394) Dietary zinc deficiency (E60) Active confirmed Problem Iron deficiency (31022864) Iron deficiency (E61.1) Active confirmed Problem Generalized anxiety disorder (98756230) Generalized anxiety disorder (F41.1) Active confirmed Problem Seasonal allergic rhinitis (354399556) Other seasonal allergic rhinitis (J30.2) Active confirmed Problem Mild intermittent asthma (162454192) Mild intermittent asthma, uncomplicated (J45.20) Active confirmed Problem Jara's esophagus (413323258) Jara's esophagus without dysplasia (K22.70) Active confirmed Problem Attention and concentration deficit (R41.840) Active confirmed Problem Dyslexia (97613264) Dyslexia and alexia (R48.0) Active confirmed Problem History of bariatric surgical procedure (239538004) Bariatric surgery status (Z98.84) Active confirmed Problem Gastroesophageal reflux disease with esophagitis (disorder) (103256282) Gastro-esophageal reflux disease with esophagitis, without bleeding (K21.00) Active confirmed Problem Body mass index 30.00 to 34.99 (275153136907577) Body mass index [BMI] 33.0-33.9, adult (Z68.33) Active confirmed Problem 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) Active confirmed Problem Other insulin resistance (E88.818) Active confirmed Vital Signs Heart Rate 89 /min 01/17/2024 Temperature 98.3 degrees Fahrenheit 01/17/2024 Blood pressure diastolic 68 mm Hg 01/17/2024 Oximetry 98 % 01/17/2024 Height 60.5 in 01/17/2024 Blood pressure systolic 122 mm Hg 01/17/2024 Weight 146 lbs 01/17/2024 BMI 28.04 kg/m2 01/17/2024 Procedures Procedure Date Ordered Date Performed Result Body Sit e HOLTER MONITOR, 7 DAYS, APPLICATION 01/17/2024 N/A Encounters Encounter Location Date Provider Diagnosis Monica Vegas MD [address] [id number] 04/04/2023 Shanna Aguayo Encounter for screen ing for lipoid disorders Z13.220 ; Vitamin D deficiency, unspecified E55.9 ; Encounter for screening for cardiovascular disorders Z13.6 ; Iron deficiency E61.1 ; Gastro-esophageal reflux disease with esophagitis, without bleeding K21.00 ; Other seasonal allergic rhinitis J30.2 ; Dietary zinc deficiency E60 ; Mild intermittent asthma, uncomplicated J45.20 ; Encounter for screening for other viral diseases Z11.59 ; Encounter for antibody response examination Z01.84 ; Family history of other endocrine, nutritional and metabolic diseases Z83.49 ; Other insulin resistance E88.818 ; Bariatric surgery status Z98.84 and Generalized anxiety disorder F41.1 Monica Vegas MD [address] [id number] 04/19/2023 Shanna Aguayo Unspecified lump in the right breast, upper outer quadrant N63.11 and Unspecified lump in the left breast, upper inner quadrant N63.22 Monica Vegas MD [address] [id number] 05/31/2023 Shanna Aguayo Encounter for genera l adult medical examination without abnormal findings Z00.00 ; Mild intermittent asthma, uncomplicated J45.20 ; Gastro-esophageal reflux disease with esophagitis, without bleeding K21.00 ; Iron deficiency E61.1 ; Dietary zinc deficiency E60 ; Bariatric surgery status Z98.84 ; Generalized anxiety disorder F41.1 ; Other insulin resistance E88.818 ; Other seasonal allergic rhinitis J30.2 ; Body mass index [BMI] 33.0-33.9, adult Z68.33 ; Family history of other endocrine, nutritional and metabolic diseases Z83.49 ; Vitamin D deficiency, unspecified E55.9 ; Encounter for screening mammogram for malignant neoplasm of breast Z12.31 ; Encounter for screening for cardiovascular disorders Z13.6 ; Encounter for immunization Z23 ; Encounter for antibody response examination Z01.84 ; Encounter for screening for other viral diseases Z11.59 ; Encounter for screening for malignant neoplasm of cervix Z12.4 and Encounter for screening examination for other mental health and behavioral disorders Z13.39 Monica Vegas MD [address] [id number] 09/19/2023 Shanna Aguayo Acute upper respirat ory infection, unspecified J06.9 and Postnasal drip R09.82 Monica Vegas MD [address] [id number] 11/01/2023 Shanna Aguayo Acute upper respirat ory infection, unspecified J06.9 Monica Vegas MD [address] [id number] 11/08/2023 Shanna Aguayo Mild neurocognitive disorder due to known physiological condition with behavioral disturbance F06.71 ; Attention and concentration deficit R41.840 and Jara's esophagus without dysplasia K22.70 Monica Vegas MD [address] [id number] 11/23/2023 Monica Vegas Encounter for immunization Z23 Monica Vegas MD [address] [id number] 12/19/2023 Shanna Aguayo Acute vaginitis N76. 0 and Encounter for screening for infections with a predominantly sexual mode of transmission Z11.3 Monica Vegas MD [address] [id number] 01/17/2024 Shanna Aguayo Syncope and collapse R55 ; Jara's esophagus without dysplasia K22.70 ; Gastro-esophageal reflux disease with esophagitis, without bleeding K21.00 ; Iron deficiency E61.1 ; Concussion without loss of consciousness, initial encounter S06.0X0A and Fall (on) (from) other stairs and steps, initial encounter W10.8XXA Monica Vegas MD [address] [id number] 01/21/2024 Shanna Aguayo Nontoxic single thyr oid nodule E04.1 ; Acute thyroiditis E06.0 ; Syncope and collapse R55 ; Jara's esophagus without dysplasia K22.70 ; Gastro-esophageal reflux disease with esophagitis, without bleeding K21.00 ; Iron deficiency E61.1 and Concussion without loss of consciousness, subsequent encounter S06.0X0D Monica Vegas MD [address] [id number] 03/05/2023 Shanna Vegas MD [address] [id number] 03/23/2023 Shanna Vegas MD [address] [id number] 04/05/2023 Shanna Aguayo Iron deficiency E61. 1 Monica Vegas MD [address] [id number] 04/12/2023 Shanna Vegas MD [address] [id number] 04/30/2023 Shanna Vegas MD [address] [id number] 05/14/2023 Shanna Aguayo Encounter for screen ing for respiratory tuberculosis Z11.1 Monica Vegas MD [address] [place] [address] [id number] 05/15/2023 Shanna Aguayo Monica Vegas MD [address] [place] [address] [id number] 05/28/2023 Shanna Aguayo Monica Vegas MD [address] [id number] 06/05/2023 Shanna Aguayo Monica Vegas MD [address] [place] [address] [id number] 06/06/2023 Shanna Aguayo Iron deficiency anem ia, unspecified D50.9 Monica Vegas MD [address] [place] [address] [id number] 06/06/2023 Shanna Aguayo Unspecified lump in the left breast, unspecified quadrant N63.20 Monica Vegas MD [address] [id number] 06/18/2023 Shanna Aguayo Monica Vegas MD [address] [id number] 07/18/2023 Shanna Aguayo Monica Vegas MD [address] [id number] 07/19/2023 Shanna Aguayo Gastro-esophageal reflux disease with esophagitis, without bleeding K21.00 Monica Vegas MD [address] [id number] 07/23/2023 Shanna Aguayo Monica Vegas MD [address] [id number] 07/26/2023 Shanna Aguayo Monica Vegas MD [address] [id number] 08/15/2023 Shanna Aguayo Monica Vegas MD [address] [id number] 08/23/2023 Shanna Aguayo Monica Vegas MD [address] [id number] 09/05/2023 Shanna Aguayo Generalized anxiety disorder F41.1 Monica Vegas MD [address] [id number] 09/05/2023 Shanna Aguayo Generalized anxiety disorder F41.1 Monica Vegas MD [address] [id number] 09/12/2023 Shanna Aguayo Tinea corporis B35.4 Monica Vegas MD [address] [id number] 09/19/2023 Shanna Vegas MD [address] [id number] 09/19/2023 Shanna Vegas MD [address] [id number] 10/10/2023 Shanna Aguayo Attention and concentration deficit R41.840 Monica Vegas MD [address] [id number] 10/12/2023 Shanna Aguayo Mild neurocognitive disorder due to known physiological condition with behavioral disturbance F06.71 and Dyslexia and alexia R48.0 Monica Vegas MD [address] [id number] 10/15/2023 Shanna Aguayo Follicular cyst of t he skin and subcutaneous tissue, unspecified L72.9 Monica Vegas MD [address] [id number] 10/16/2023 Shanna Vegas MD [address] [id number] 10/19/2023 Shanna Vegas MD [address] [id number] 10/25/2023 Shanna Vegas MD [address] [id number] 11/06/2023 Shanna Vegas MD [address] [id number] 12/10/2023 Shanna Aguayo Unspecified lump in the right breast, upper outer quadrant N63.11 ; Mammographic extreme density, bilateral breasts R92.343 and Family history of malignant neoplasm of breast Z80.3 Monica Vegas MD [address] [id number] 12/13/2023 Shanna Aguayo Attention and concentration deficit R41.840 Monica Vegas MD [address] [id number] 12/19/2023 Shanna Vegas MD [address] [id number] 12/21/2023 Shanna Vegas MD [address] [id number] 12/31/2023 Shanna Anderson Vegas MD [address] [id number] 01/14/2024 Shanna Aguayo Attention and concentration deficit R41.840 Monica Vegas MD [address] [id number] 01/16/2024 Shanna Aguayo Nontoxic single thyr oid nodule E04.1 Monica Vegas MD [address] [id number] 01/17/2024 Shanna Aguayo Monica Vegas MD [address] [id number] 01/18/2024 Shanna Aguayo Acute thyroiditis E0 6.0 Monica Vegas MD [address] [id number] 01/20/2024 Shanna Aguayo Nontoxic single thyr oid nodule E04.1 Monica Vegas MD [address] [id number] 07/23/2023 Shanna Dede Vegas MD [address] [id number] 07/24/2023 Shanna Aguayo Assessments Encounter Date Diagnosis (ICD Code) Assessment Notes Treatment Notes Treatment Clinical Notes Section Notes 04/04/2023 Vitamin D deficiency, unspecified (ICD-10 - E55.9) Will obtain labs to assess for vitamin D deficiency 04/04/2023 Encounter for screening for lipoid disorders (ICD-10 - Z13.220) Will obtain labs to assess for hyperlipidemia 04/05/2023 Iron deficiency (ICD-10 - E61.1) 04/19/2023 Unspecified lump in the right breast, upper outer quadrant (ICD-10 - N63.11) Discussed with patient the finding of dense tissue as well as bilateral breast masses. Patient's mother is also currently being treated for stage I breast cancer through [facility]. Given her family history as well as findings on exam today would like patient to undergo bilateral breast ultrasounds as well as a diagnostic mammogram. Patient agreeable to move forward with these and she is aware to follow-up should she have any new or concerning symptoms 04/19/2023 Unspecified lump in the left breast, upper inner quadrant (ICD-10 - N63.22) See plan above 05/14/2023 Encounter for screening for respiratory tuberculosis (ICD-10 - Z11.1) 05/31/2023 Mild intermittent asthma, uncomplicated (ICD-10 - J45.20) Stable at present time and patient without any worsening asthma symptoms 05/31/2023 Encounter for general adult medical examination without abnormal findings (ICD-10 - Z00.00) General healthcare up-to-date. Recently obtained updated routine labs. Plan will be for annual in 1 year 06/06/2023 Iron deficiency anemia, unspecified (ICD-10 - D50.9) 06/06/2023 Unspecified lump in the left breast, unspecified quadrant (ICD-10 - N63.20) 07/19/2023 Gastro-esophageal reflux disease with esophagitis, without bleeding (ICD-10 - K21.00) 09/05/2023 Generalized anxiety disorder (ICD-10 - F41.1) 09/05/2023 Generalized anxiety disorder (ICD-10 - F41.1) 09/12/2023 Tinea corporis (ICD-10 - B35.4) 09/19/2023 Acute upper respiratory infection, unspecified (ICD-10 - J06.9) Suspect patient's presenting symptoms are related to underlying viral infection. Resp panel swab obtained during today's visit. Encouraged patient to continue taking her qstz-mrw-jbwnxmb antihistamine to assist with sinus congestion which may be the underlying cause for her left ear pain as there was no significant findings of an acute otitis media. 09/19/2023 Postnasal drip (ICD-10 - R09.82) Suspect patient's sore throat is related to postnasal drip. Patient to continue taking bkvs-jve-pauujyh encourage patient to gargle with her throat. 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 Will prescribe Tessalon Perles to assist with cough and encouraged patient to gargle with warm salt water to assist in managing her intermittent sore throat symptoms. Patient to follow-up should she have any new or concerning symptoms respiratory 12/10/2023 Unspecified lump in the right breast, upper outer quadrant (ICD-10 - N63.11) 12/10/2023 Mammographic extreme density, bilateral breasts (ICD-10 - R92.343) 12/13/2023 Attention and concentration deficit (ICD-10 - R41.840) 12/19/2023 Acute vaginitis (ICD-10 - N76.0) Reviewed with patient her new sexual partner and vaginal irritation. There was some white discharge noted on vaginal exam today. Sure swab was obtained but will empirically treat for underlying yeast infection. Discussed with patient that if sure swab results reveal underlying causes for her symptoms we will need to treat appropriately once results are back. Patient also encouraged to apply a thin layer of plain Kinyarwanda yogurt to vaginal area tonight to assist with further symptom resolution 12/19/2023 Encounter for screening for infections with a predominantly sexual mode of transmission (ICD-10 - Z11.3) Patient is sexually active with a new partner and due to this we will obtain baseline STI screening 01/14/2024 Attention and concentration deficit (ICD-10 - R41.840) 01/16/2024 Nontoxic single thyroid nodule (ICD-10 - E04.1) 11/08/2023 Attention and concentration deficit (ICD-10 - R41.840) . Stable and pt has seen some improvement with her ADHD symptoms. She still is hoping to have more improvement in her focus and concentration. Will increase patient to 30mg Vyvanse daily and pt to follow up if she has any negative side effects from increasing or still feels as though her ADHD symptoms are not well managed, and we can increase dose as needed. 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 There is a possibility that patient's intense reflux did cause a vasovagal response as she was feeling burning in her chest. Patient to continue reflux treatment while we wait for additional labs and testing to further evaluate the potential causes for her recent fall down the stairs 01/17/2024 Syncope and collapse (ICD-10 - R55) Discussed with patient that it is unclear if patient had a syncopal episode as she states she does recall falling but there was a period of time where she felt disoriented and did not recall the event. It is unclear if this is syncope but would like patient to wear a 7-day Holter for further evaluation of cardiac rhythms. EKG in office today was without significant findings and normal sinus rhythm. Will also obtain lab work for further evaluation. Patient aware to follow-up should she continue to have episodes of dizziness, syncope, or any other concerning symptoms while we wait for Holter monitor results 01/18/2024 Acute thyroiditis (ICD-10 - E06.0) 01/20/2024 Nontoxic single thyroid nodule (ICD-10 - E04.1) 01/21/2024 Nontoxic single thyroid nodule (ICD-10 - E04.1) Patient is pending a thyroid ultrasound given incidental finding of a thyroid nodule on previous imaging. 01/21/2024 Acute thyroiditis (ICD-10 - E06.0) Patient with previous lab work that did reveal low TSH level, which did return back to a normal range. Will continue to monitor patient's TSH levels as well as obtain a thyroid ultrasound given the incidental finding of a thyroid nodule on recent breast MRI 01/17/2024 Gastro-esophageal reflux disease with esophagitis, without bleeding (ICD-10 - K21.00) See plan above.Patient to continue monitoring her reflux symptoms and continue treatment as needed to further assist in managing reflux 01/21/2024 Syncope and collapse (ICD-10 - R55) Patient is currently wearing a 7 day Holter monitor due to the uncertainity of a syncopal event where she fell down the stairs last week. 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 Pt is without reflux symptoms and there were no findings of worsening gastritis. Patient aware to follow up should she develop any reflux symptoms as we would want to treat given the Jara's finding. Patient also aware that follow-up Endoscopy's will be warranted to ensure normal findings of esophagus given this diagnosis 05/31/2023 Gastro-esophageal reflux disease with esophagitis, without bleeding (ICD-10 - K21.00) Stable patient to continue on current medication regimen 04/04/2023 Encounter for screening for cardiovascular disorders (ICD-10 - Z13.6) Will obtain labs to assess for additional risk such as hyperlipidemia and hyperglycemia 04/04/2023 Iron deficiency (ICD-10 - E61.1) Patient with underlying fatigue symptoms and given recent gastric sleeve surgery will obtain labs to assess for iron and vitamin B12 deficiency. 05/31/2023 Iron deficiency (ICD-10 - E61.1) Patient with recent findings of iron deficiency. Pt to continue taking her Accrufer to assist with improving her iron levels. Will obtain updated iron levels and advised pt to complete this lab in 1 month 01/17/2024 Iron deficiency (ICD-10 - E61.1) Patient with previous findings of iron and ferritin deficiencies. 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 Patient to continue taking her Voquezna daily to help manage her reflux symptoms 01/17/2024 Concussion without loss of consciousness, initial encounter (ICD-10 - S06.0X0A) Suspect that patient may have a mild concussion given her fall down the stairs. There were no significant neurological findings on exam today and do not believe patient requires further imaging with x-rays or CT scans. Patient aware that if her symptoms worsen then she should notify the office as we would then discuss if imaging is warranted for further evaluation 05/31/2023 Dietary zinc deficiency (ICD-10 - E60) Patient states she was diagnosed with a zinc deficiency and continues to take her supplement daily as recommended by her weight loss provider 04/04/2023 Gastro-esophageal reflux disease with esophagitis, without bleeding (ICD-10 - K21.00) Stable patient to continue on current medication regimen 01/21/2024 Gastro-esophageal reflux disease with esophagitis, without bleeding (ICD-10 - K21.00) See plan above.Patient to continue monitoring her reflux symptoms and continue treatment as needed to further assist in managing reflux 04/04/2023 Other seasonal allergic rhinitis (ICD-10 - J30.2) Patient is scheduled to see allergy and immunology for suspected seasonal allergies as well as underlying food allergies. Patient with an event last summer of spontaneous facial swelling while camping and she is hoping for answers as to what could be the underlying trigger for that wrist 05/31/2023 Bariatric surgery status (ICD-10 - Z98.84) Patient's status post recent gastric sleeve surgery and she is to follow-up with specialist as scheduled and to advance her diet as instructed by weight specialist. 01/17/2024 Fall (on) (from) other stairs and steps, initial encounter (ICD-10 - W10.8XXA) It is unclear what caused patient's fall down the stairs but suspect that she might have had a vasovagal episode due to worsening reflux. Patient is agreeable to have labs drawn as well as complete Holter monitor for further evaluation and to ensure that her recent fall was not cardiac in nature. Also placed a sample freestyle jimenez CGM to further assess for hypoglycemic events which could also be an underlying cause given patient's increased sweating prior to fall. Patient to follow-up with any recurrent hypoglycemic events as well as any recurrent or persistent symptoms of dizziness and syncopal episodes 01/21/2024 Iron deficiency (ICD-10 - E61.1) Patient with previous findings of iron and ferritin deficiencies. Patient's recent iron levels are elevated and due to this would like pt to hold taking her Accrufer until next follow up apt 01/21/2024 Concussion without loss of consciousness, subsequent encounter (ICD-10 - S06.0X0D) Suspect that patient did suffer a mild concussion after her fall down the stairs last week. Symptoms are improving and I discussed with patient that muscle cramps and discomfort seem to be related to her fall and this may take a few weeks to resolve. Patient aware that she can apply ice to affected areas and apply topical Voltaren gel to assist with muscle spasms and further improve her pain and discomfort. Patient also aware to follow-up should she have any new or worsening symptoms of concern 05/31/2023 Generalized anxiety disorder (ICD-10 - F41.1) Patient to continue working with her therapist and working with coping strategies to assist with her underlying anxiety. Will also prescribe Propranolol 10mg as needed daily to assist with her underlying anxiety 04/04/2023 Dietary zinc deficiency (ICD-10 - E60) Patient states she was diagnosed with a zinc deficiency and continues to take her supplement daily. Will obtain an updated zinc level to ensure adequate zinc levels 04/04/2023 Mild intermittent asthma, uncomplicated (ICD-10 - J45.20) Stable at present time and patient without any worsening asthma symptoms 05/31/2023 Other insulin resistance (ICD-10 - E88.818) Recent A1c within normal range and no concerns for underlying diabetic concerns 05/31/2023 Other seasonal allergic rhinitis (ICD-10 - J30.2) Patient is scheduled to see allergy and immunology for suspected seasonal allergies as well as underlying food allergies. Patient with an event last summer of spontaneous facial swelling while camping. Pt to follow up with our office with any return of swelling or any additional concerns or reactions 04/04/2023 Encounter for screening for other viral diseases (ICD-10 - Z11.59) Will obtain hep C status per screening guidelines 05/31/2023 Body mass index [BMI] 33.0-33.9, adult (ICD-10 - Z68.33) Pt continues to lose weight post gastric sleeve. She should continue to follow the dietary instructions provided by her weight loss specialist post gastric sleeve 04/04/2023 Encounter for antibody response examination (ICD-10 - Z01.84) Will obtain an MMR titer 04/04/2023 Family history of other endocrine, nutritional and metabolic diseases (ICD-10 - Z83.49) Patient's family with a history of thyroid disease and given this history we will obtain a full thyroid panel. 05/31/2023 Family history of other endocrine, nutritional and metabolic diseases (ICD-10 - Z83.49) Patient's family with a history of thyroid disease and recent lab work did not reveal any concerns of underlying thyroid disease 04/04/2023 Other insulin resistance (ICD-10 - E88.818) Patient states she has history of insulin resistance. Given this past history we will obtain a hemoglobin A1c level to ensure there is no underlying diabetes concerns 05/31/2023 Vitamin D deficiency, unspecified (ICD-10 - E55.9) Pt to continue taking her vitamin D daily to assist with underlying deficiency 04/04/2023 Bariatric surgery status (ICD-10 - Z98.84) Patient's status post recent gastric sleeve surgery and she is to follow-up with specialist as scheduled and to advance her diet as instructed by weight specialist 05/31/2023 Encounter for screening mammogram for malignant neoplasm of breast (ICD-10 - Z12.31) Up-to-date on breast cancer screening as she completed this recently given findings of a breast mass on exam 05/31/2023 Encounter for screening for cardiovascular disorders (ICD-10 - Z13.6) Blood pressure stable. Recently checked for comorbidity of hyperlipidemia and hyperglycemia to further assess risk 04/04/2023 Generalized anxiety disorder (ICD-10 - F41.1) Patient to continue working with her therapist as scheduled and to follow-up with any new or worsening symptoms 05/31/2023 Encounter for immunization (ICD-10 - Z23) Vaccines up-to-date 05/31/2023 Encounter for antibody response examination (ICD-10 - Z01.84) Titers have been checked in the past and there is immunity to rubeola 05/31/2023 Encounter for screening for other viral diseases (ICD-10 - Z11.59) Recently screened for hepatitis C as per general recommendation 05/31/2023 Encounter for screening for malignant neoplasm of cervix (ICD-10 - Z12.4) Pap smear completed in 2022 and normal pap smear noted 05/31/2023 Encounter for screening examination for other mental health and behavioral disorders (ICD-10 - Z13.39) PHQ score reviewed and discussed additional support for increasing anxiety. Pt to follow up with any worsening or new symptoms of concern and to continue working with her therapist 05/31/2023 Other Plan Of Treatment Pending Test Test Name Order Date US Thyroid 01/20/2024 HOLTER MONITOR, 7 DAYS, APPLICATION 01/05 Next Appt Details Provider Name:Shanna Fatima Dede , 03/05/2024 09:00:00 AM, [address] [place] [address], [phone], Provider Name:Shanna Akua Dede , 06/04/2024 01:00:00 PM, [address] [place] [address], [phone], Insurance Providers Payer Name Payer Address Payer Phone Subscriber Number Group Number Insured Name Patient Relationship to Insured Coverage Start Date Coverage End Date BC[facility] OF [facility] [address] [place] [address] [id number] Mary Pang Self - patient is the insured MEDICA[place] OF [place] [address] [place] [phone] [id number] Mary Pang Self - patient is the insured Medical (General) History Medical History History ICD Code Reflux Insulin Resistance Asthma - mild (with seasonal allergies) Constipation Vitamin deficiency (A, B1, D, zinc) Iron deficiency Surgical History Surgery Date(Month/Year) gastric sleeve 03/2023 mole removal 05/2004 wisdom teeth extracted 08/2006 lasix eye surgery both eyes 12/2021 liletta IUD 04/2023 Hospitalization History Reason Date(Month/Year)
--- OUTSIDE RECORDS SUMMARY | 2024-01-29 13:31 | XMS_ITS | Patient Health Record ---
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 Name Role Phone JONY STEWART Primary Care Provider [phone] Jony Stewart Unavailable [phone] Allergies No Known Allergies Results Component Value Reference Range Notes US Duplex Venous Study RT Reviewed date:02/10/2023 01:01:14 PM Interpretation: Performing Lab: Notes/Report: Original Ordering Provider: JONY STEWART MD [facility] Reason For Referral No Information Medications Medication SIG (Take, Route, Frequency, Duration) [...] Problem Status W/U Status Risk Notes Problem Type 2 diabetes mellitus with other specified complication (E11.69) Active confirmed Problem Gastro-esophagea l reflux disease without esophagitis (481715239) Gastro-esophagea l reflux disease without esophagitis (K21.9) Active confirmed Problem 321884681 Irritable bowel syndrome with diarrhea (K58.0) Active confirmed 12/21/21 Mccurdy d diaarhea and abdominal cramps Went to ED [facility] 03/23/21 Had MRI abd and labs and told she had IBS. Given ? dicyclomine Problem Constipation (05420465) Constipation, unspecified (K59.00) Active confirmed Problem 06523671 Acute cystitis without hematuria (N30.00) Active confirmed 08/16/22 Awaiting Urine c&S Will treat with Cipro Problem 3868372 Rectocele (N81.6) Active confirmed 04/11/22 Will refer to PT for Pelvic floor strenghthening exercise Problem Asthma (770900510) Asthma (J45.909) Active confirmed Problem Vitamin D deficiency (04339197) Vitamin D deficiency (E55.9) Active confirmed 05/25/22 Level 11 She started 2000 units Taking 4 a day. Son Pavel also takes it Problem Hyperlipidemia (21406380) Hyperlipidemia (E78.5) Active confirmed Problem 81797156 Sleep disorder (G47.9) Active confirmed 11/14/22 Uses Lorazepam prn to help her sleep as thoughts races Problem 427116518 PCOS (polycystic ovarian syndrome) (E28.2) Active confirmed Problem 896911857 Obesity (BMI 30-39.9) (E66.9) Active confirmed 04/11/[address] Simpson Given Phentermine Stopped because of her GI issues. Prescribed Saxenda and then Brit Lost 40 lbs so far. Will send script for Jayceeyi Problem 85592263 Rectal bleed (K62.5) Active confirmed 12/20/21 Rectal exam showed skinny blood Small soft internal hemorrhoid [place] Problem 76912377 Subacute frontal sinusitis (J01.10) Active confirmed 11/14/22 Will give ZPak Problem 143025548 Pre-diabetes (R73.03) Active confirmed Problem Major depression, single episode (04463703) Depression determined by examination (F32.9) Active confirmed 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 manager house and son have Depression Problem 920122703 COVID (U07.1) Active confirmed Problem 9253551 Tachyarrhythmia (R00.0) Active confirmed 11/09/22 Symptomatic Has family hx of same Will need cardiac evaluation Encounters Encounter Location Date Provider Diagnosis [address] [place] [address] 02/06/2023 JONY LAYA Leg pain, right M79.604 and Right leg swelling M79.89 [facility] [address] [place] [address] 02/06/2023 JONY LAYA Leg pain, right M79.604 and Right leg [...] Panel 04/11/2022 Chem-Comprehensive 04/11/2022 VITAMIN D, 25-HYDROXY 04/11/2022 VITAMIN D, 25-HYDROXY 12/06/2022 right lower extremity 02/06/2023 Insurance Providers Payer Name Payer Address Payer Phone Subscriber Number Group Number Insured Name Patient Relationship to Insured Coverage Start Date Coverage End Date [facility] [address] [place] [address] [id number] Mary Pang Self - patient is the insured 3 [employer] [place] [address] [place] [address] [id number] Mary Pang Self - patient is the [...] 1 year Hemorrhoids Had rectal bleed in 2010 Type 2 diabetes mellitus with other spec ified complication E11.69 Surgical History Surgery Date(Month/Year) Dermatologic surgery to al ve moles from left foot and left shoulder at age 14
== END 2024-01-29 13:34 | disposition home or self-care (01) ==
LOC: HO.HBS 13:29
PROVIDERS: PCP Nurse Practitioner Family; Visit Provider Physician Assistant Surgical
DX: E60 Dietary zinc deficiency (principal); E51.9 Thiamine deficiency, unspecified; E50.9 Vitamin A deficiency, unspecified; Z98.84 Bariatric surgery status
CPT/HCPCS: 98967

== ENCOUNTER → 2024-01-29 13:29 | Outpatient (BNVA) | payer BC, SELFPAY | PROVIDERS: PCP Nurse Practitioner Family; Visit Provider Physician Assistant Surgical | DX: Z98.84 Bariatric surgery status (principal); E60 Dietary zinc deficiency; E51.9 Thiamine deficiency, unspecified; E50.9 Vitamin A deficiency, unspecified; E55.9 Vitamin D deficiency, unspecified; E78.5 Hyperlipidemia, unspecified; E11.9 Type 2 diabetes mellitus without complications ==